=== PATIENT | female | born 1990 | race Two or more races ===

== ENCOUNTER 2017-01-21 13:14 | Inpatient (IN) | payer OTHER ==
[2017-01-21 13:40] VITALS: BMI 25.0
--- NOTE | 2017-01-21 15:48 | HP ---
CIWA Score - CIWA Score Nausea/Vomitin-Mild Nausea/No Vomiting Muscle Tremors: 4-Moderate,w/Arms Extend Anxiety: 4-Mod. Anxious/Guarded Agitation: 4-Moderately Restless Paroxysmal Sweats: 3 Orientation: 0-Oriented Tacttile Disturbances: 0-None Auditory Disturbances: 0-None Visual Disturbances: 0-None Headache: 1-Very Mild CIWA-Ar Total Score: 17 Admission ROS BHS - HPI Chief Complaint: I need help and need detox. Allergies/Adverse Reactions: Allergies Allergy/AdvReac Type Severity Reaction Status Date / Time penicillin G Allergy Severe Difficulty Verified 01/21/17 15:12 Breathing apple Allergy Unknown Verified 01/21/17 15:12 lemon Allergy Unknown Verified 01/21/17 15:12 raspberry Allergy Unknown Verified 01/21/17 15:12 History of Present Illness: pt is a 26yr old male with a history of alcohol dependence seeking detox for treatment. Exam Limitations: Intoxication - Ebola screening Have you traveled outside of the country in the last 21 days: No Have you had contact with anyone from an Ebola affected area: No Have you been sick,other than usual withdrawal symptoms: No Do you have a fever: No - Review of Systems Constitutional: Chills, Diaphoresis, Night Sweats, Changes in sleep EENT: reports: Tearing Respiratory: reports: No Symptoms reported Cardiac: reports: Syncope GI: reports: Nausea, Poor Appetite, Poor Fluid Intake : reports: No Symptoms Reported Musculoskeletal: reports: Joint Pain, Muscle Pain Integumentary: reports: Bruising, Sweating, Other (left don-orbital cut to eyebrow 12stitches placed 2 days ago) Endocrine: reports: Excessive Sweating, Flushing, Intolerance to Cold, Intolerance to Heat Hematology: reports: No Symptoms Reported Psychiatric: reports: Judgement Intact, Mood/Affect Appropiate, Orientated x3, Agitated, Anxious Other Systems: Reviewed and Negative Patient History - Patient Medical History Hx Anemia: No Hx Asthma: No Hx Chronic Obstructive Pulmonary Disease (COPD): No Hx Cancer: No Hx Cardiac Disorders: No Hx Congestive Heart Failure: No Hx Hypertension: No Hx Hypercholesterolemia: No Hx Pacemaker: No HX Cerebrovascular Accident: No Hx Seizures: No Hx Dementia: No Hx Diabetes: No Hx Gastrointestinal Disorders: Yes (acid reflux) Hx Liver Disease: No Hx Genitourinary Disorders: No Hx Sexually Transmitted Disorders: No Hx Renal Disease (ESRD): No Hx Thyroid Disease: No Hx Human Immunodeficiency Virus (HIV): No (negative) Hx Hepatitis C: No (negative) Hx Depression: Yes Hx Suicide Attempt: Yes (november tried to cut; denies any S/H ideation) Hx Bipolar Disorder: Yes Hx Schizophrenia: Yes - Patient Surgical History Past Surgical History: No Hx Neurologic Surgery: No Hx Cataract Extraction: No Hx Cardiac Surgery: No Hx Lung Surgery: No Hx Breast Surgery: No Hx Breast Biopsy: No Hx Abdominal Surgery: No Hx Appendectomy: No Hx Cholecystectomy: No Hx Genitourinary Surgery: No Hx Section: No Hx Orthopedic Surgery: No Anesthesia Reaction: No - PPD History Previous Implant?: Yes Documented Results: Negative w/o proof Implanted On Prior [facility] Admission?: No PPD to be Administered?: Yes - Reproductive History Patient is a Female of Child Bearing Age (11 -55 yrs old): Yes Last Menstrual Period: 12/04/16 Patient : No - Smoking Cessation Smoking history: Current every day smoker Have you smoked in the past 12 months: Yes Aproximately how many cigarettes per day: 40 Hx Chewing Tobacco Use: No Initiated information on smoking cessation: Yes 'Breaking Loose' booklet given: 01/21/17 - Substance & Tx. History Hx Alcohol Use: Yes Substance Use Type: Alcohol Hx Substance Use Treatment: Yes (last detox a month ago at [facility]) - Substances Abused Alcohol-vodka Route: Oral Frequency: Daily Amount used: 1/2 gal. Age of first use: 10 Date of Last Use: 01/21/17 Family Disease History - Family Disease History Family Disease History: Diabetes: Father, Mother (etoh) Admission Physical Exam S - Vital Signs Vital Signs: Vital Signs - 24 hr 01/21/17 13:37 Temperature 97.9 F Pulse Rate 120 H Respiratory 18 Rate Blood Pressure 130/96 - Physical General Appearance: Yes: Appropriately Dressed, Moderate Distress, Tremorous, Irritable, Sweating, Anxious HEENTM: Yes: Hearing grossly Normal, Normal Voice, Hearing Decreased, Other (pt has an left eyebrow cut with 12 stitches placed 2 days ago. bruising noted around the don-orbital area) Respiratory: Yes: Lungs Clear, Normal Breath Sounds, No Respiratory Distress Neck: Yes: No masses,lesions,Nodules Breast: Yes: Within Normal Limits Cardiology: Yes: Regular Rhythm, Regular Rate, S1, S2 Abdominal: Yes: Normal Bowel Sounds, Non Tender, Soft Genitourinary: Yes: Within Normal Limits Back: Yes: Normal Inspection Musculoskeletal: Yes: full range of Motion, Back pain Extremities: Yes: Normal Capillary Refill, Normal Inspection, Tremors 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: Yes: Fully Oriented, Alert, Normal Response Integumentary: Yes: Normal Color, Diaphoresis Lymphatic: Yes: Within Normal Limits - Diagnostic (1) Alcohol dependence with uncomplicated withdrawal Current Visit: Yes Status: Chronic (2) Crack cocaine use Current Visit: Yes Status: Chronic (3) Nicotine dependence Current Visit: Yes Status: Chronic Qualifiers: Nicotine product type: cigarettes Substance use status: in withdrawal Qualified Code(s): F17.213 - Nicotine dependence, cigarettes, with withdrawal (4) Orbital laceration Current Visit: Yes Status: Acute Qualifiers: Encounter type: initial encounter Laterality: left Qualified Code(s): S05.42XA - Penetrating wound of orbit with or without foreign body, left eye, initial encounter Comment: 12 intact stitches to left eyebrow Cleared for Admission [facility] - Detox or Rehab [facility] Level of Care: Medically Managed Detox Regimen/Protocol: Librium [facility] Breath Alcohol Content Breath Alcohol Content: 0.380 Urine Pregancy Test - Result Urine Test Results: Negative- NO Line Present Urine Drug Screen - Results Drug Screen Negative: No Urine Drug Screen Results: BZO-Benzodiazepines
[2017-01-21] MEDS ORDERED: guaiFENesin/D-METHORPHAN HB 10 ML UNIT-DOSE CUPS PO PRN (15:56)
[2017-01-21] MEDS ORDERED: MAGNESIUM HYDROX 2400MG/30ML ORAL SUSPENSION 30 ML CUP PO PRN (15:56)
[2017-01-21] MEDS ORDERED: P-EPHED 60MG/TRIPROLIDI 2.5MG TABLET PO PRN (15:56)
[2017-01-21] MEDS ORDERED: MENTHOL/PHENOL 1 EACH UD MM PRN (15:56)
[2017-01-21] MEDS ORDERED: MAGNESIUM CITRATE 300 ML BOTTLE PO PRN (15:56)
[2017-01-21] MEDS ORDERED: chlordiazePOXIDE HCL 25 MG CAPSULE PO ONE (15:56)
[2017-01-21] MEDS ORDERED: MAG HYDROX/AL HYDROX/SIMETH 30 ML UNIT-DOSE CUP PO PRN (15:56)
[2017-01-21] MEDS: chlordiazePOXIDE HCL 25 MG CAPSULE PO SCH ×2 (18:12→22:14)
[2017-01-21] MEDS: chlordiazePOXIDE HCL 25 MG CAPSULE PO PRN (20:12)
[2017-01-21] MEDS ORDERED: cloNIDine HCL 0.1 MG TABLET PO ONE (21:30)
[2017-01-21] MEDS: THIAMINE HCL 100 MG TABLET (FP) PO SCH (22:14)
[2017-01-21 22:46] LABS: URINE APPEARANCE SLCLOUDY; URINE BILIRUBIN NEGATIVE (NEGATIVE); URINE BLOOD 1+ (NEGATIVE); URINE COLOR YELLOW; URINE GLUCOSE (UA) NEGATIVE (NEGATIVE); URINE KETONE 1+ (NEGATIVE); URINE NITRITE NEGATIVE (NEGATIVE); URINE PROTEIN 3+ (NEGATIVE); URINE UROBILINOGEN NEGATIVE mg/dL (0.2-1.0)
[2017-01-21 22:57] LABS: GRANULAR CASTS 30 /lpf; URINE BACTERIA RARE /hpf (NONE SEEN); URINE HYALINE CAST 1 /lpf; URINE MUCUS FEW; URINE RBC <1 /hpf (0-3); URINE WBC 2 /hpf (3-5)
[2017-01-22] MEDS: chlordiazePOXIDE HCL 25 MG CAPSULE PO PRN ×3 (01:24→15:05)
[2017-01-22] MEDS: chlordiazePOXIDE HCL 25 MG CAPSULE PO SCH ×4 (05:20→22:23)
--- NOTE | 2017-01-22 07:28 | CONSULT ---
[facility] Psychiatric Consult - Data Date of interview: 01/22/17 Admission source: [facility] Identifying data: This is 26 years old female withy history of psychiatric hospitalization , intoxicated with Alcohol, Crack and Nicotine Substance Abuse History: - Smoking Cessation. Smoking history: Current every day smoker. Have you smoked in the past 12 months: Yes. Aproximately how many cigarettes per day: 40. Hx Chewing Tobacco Use: No. Initiated information on smoking cessation: Yes. 'Breaking Loose' booklet given: 01/21/17. - Substance & Tx. History. Hx Alcohol Use: Yes. Substance Use Type: Alcohol. Hx Substance Use Treatment: Yes (last detox [facility] - Substances Abused. Alcohol-vodka. Route: Oral. Frequency: Daily. Amount used: 1/2 gal. Age of first use: 10. Date of Last Use: 01/21/17 Medical History: Denies significant medical issues Psychiatric History: Patient reprots history of anxiety and depression, reports recent- 2 months ago psychiatric admission at [facility] with suicidal ideation, reports no suicidal attempts history, reports taking prior to admission: Vistaril m550mg po q6. Seroquel 150mg po qhs. Lexapro 20mg poqd Physical/Sexual Abuse/Trauma History: Denies Additional Comment: Vistaril m550mg po q6. Seroquel 150mg po qhs. Lexapro 20mg poqd Mental Status Exam - Mental Status Exam Alert and Oriented to: Person Cognitive Function: Fair Patient Appearance: Unkempt Mood: Sad Affect: Flat Patient Behavior: Sedated Speech Pattern: Delayed Voice Loudness: Mildly Soft/Quiet Thought Process: Circumstantial Thought Disorder: Being Controlled Hallucinations: Denies Suicidal Ideation: Denies Homicidal Ideation: Denies Insight/Judgement: Fair Sleep: Difficulty falling asleep Appetite: Fair Muscle strength/Tone: Mild Hypotonicity Gait/Station: Shuffling Additional Comments: Vistaril m550mg po q6. Seroquel 150mg po qhs. Lexapro 20mg poqd Psychiatric Findings - Problem List ([place] 1, 2,3) (1) Drug-induced mood disorder Current Visit: Yes Status: Acute (2) Alcohol dependence with uncomplicated withdrawal Current Visit: Yes Status: Chronic (3) Crack cocaine use Current Visit: Yes Status: Chronic (4) Nicotine dependence Current Visit: Yes Status: Chronic Qualifiers: Nicotine product type: cigarettes Substance use status: in withdrawal Qualified Code(s): F17.213 - Nicotine dependence, cigarettes, with withdrawal - Initial Treatment Plan Initial Treatment Plan: Vistaril m550mg po q6. Seroquel 150mg po qhs. Lexapro 20mg poqd
[2017-01-22] MEDS: hydrOXYzine PAMOATE 50 MG CAPSULE (FP) PO PRN (08:33)
[2017-01-22] MEDS: ACETAMINOPHEN 325 MG TABLET (FP) PO PRN (08:34)
[2017-01-22] MEDS ORDERED: hydrOXYzine HCL 25 MG TABLET (FP) PO PRN (08:41)
--- NOTE | 2017-01-22 09:59 | PN ---
S CIWA - CIWA Score Nausea/Vomitin Muscle Tremors: 3 Anxiety: 3 Agitation: 3 Paroxysmal Sweats: 1-Minimal Palms Moist Orientation: 0-Oriented Tacttile Disturbances: 1-Very Mild Itch/Numbness Auditory Disturbances: 1-Very Mild Visual Disturbances: 0-None Headache: 2-Mild CIWA-Ar Total Score: 17 BHS Progress Note (SOAP) Subjective: alert,irritable,anxious,interrupted sleep,tremor, Objective: 01/22/17 09:57 Vital Signs Temperature 97.7 F 01/22/17 06:19 Pulse Rate 91 H 01/22/17 06:19 Respiratory Rate 20 01/22/17 06:19 Blood Pressure 141/90 01/22/17 06:19 O2 Sat by Pulse Oximetry (%) ekg sinus tachycardia 115/min no chest pain,no sob,no dizziness Laboratory Last Values Urine Color Yellow 01/21/17 22:00 Urine Appearance Slcloudy 01/21/17 22:00 Urine pH 5.0 (5.0-8.0) 01/21/17 22:00 Ur Specific [place] 1.022 (1.001-1.035) 01/21/17 22:00 Urine Protein 3+ (NEGATIVE) H 01/21/17 22:00 Urine Glucose (UA) Negative (NEGATIVE) 01/21/17 22:00 Urine Ketones 1+ (NEGATIVE) H 01/21/17 22:00 Urine Blood 1+ (NEGATIVE) H 01/21/17 22:00 Urine Nitrite Negative (NEGATIVE) 01/21/17 22:00 Urine Bilirubin Negative (NEGATIVE) 01/21/17 22:00 Urine Urobilinogen Negative mg/dL (0.2-1.0) 01/21/17 22:00 Ur Epithelial Cells Rare /HPF (FEW) 01/21/17 22:00 Urine Bacteria Rare /hpf (NONE SEEN) 01/21/17 22:00 Hyaline Casts 1 /lpf 01/21/17 22:00 Granular Casts 30 /lpf 01/21/17 22:00 Urine Mucus Few 01/21/17 22:00 labs pending Assessment: 01/22/17 09:58 withdrawal symptom Plan: continue detox
[2017-01-22 10:05] LABS: MCH 29.3 pg (25.7-33.7); MCHC 32.5 g/dl (32.0-36.0); MEAN CELL VOLUME 90.1 fl (80-96); MEAN PLT VOLUME 9.2 fl (7.5-11.1); PLATELET COUNT 343 K/MM3 (134-434); RDW 18.2 % (11.6-15.6); WHITE BLOOD COUNT 10.5 K/mm3 (4.0-10.0)
--- NOTE | 2017-01-22 10:16 | EKG ---
Test Reason : Blood Pressure : / mmHG Vent. Rate : 115 BPM Atrial Rate : 115 BPM P-R Int : 164 ms QRS Dur : 064 ms QT Int : 328 ms P-R-T Axes : 063 044 065 degrees QTc Int : 453 ms SINUS TACHYCARDIA NONSPECIFIC ST ABNORMALITY ABNORMAL ECG NO PREVIOUS ECGS AVAILABLE Confirmed by ADALBERTO GUILLEN, LITTLE ([id number]) on 01/22/2017 10:16:33 AM Referred By: Confirmed By:LITTLE GLOVER MD
[2017-01-22] MEDS: NICOTINE 21 MG/24 HOURS TOPICAL PATCH TD SCH (10:24)
[2017-01-22] MEDS: ESCITALOPRAM OXALATE 20 MG TABLET (FP) PO SCH (10:24)
[2017-01-22] MEDS: PRENATAL VITAMINS W/ FOLIC ACID TABLET (FP) PO SCH (10:24)
[2017-01-22 10:38] LABS: ALBUMIN 4.4 g/dl (3.4-5.0); ALK PHOS 234 U/L (45-117); ANION GAP 20 (8-16); BILIRUBIN,TOTAL 0.5 mg/dL (0.2-1.0); CALCIUM 8.6 mg/dL (8.5-10.1); CO2 19 mmol/L (21-32); CREATININE 0.7 mg/dL (0.55-1.02); GLUCOSE,RANDOM 104 mg/dL (74-106); SGOT/AST 108 U/L (15-37); SGPT/ALT 58 U/L (12-78); TOT PROT 9.7 g/dl (6.4-8.2)
[2017-01-22] MEDS: ONDANSETRON *ODT* 4 MG TABLET SL PRN ×2 (11:15→22:26)
[2017-01-22 11:19] LABS: URINE LEUK ESTERASE Negative (NEGATIVE)
[2017-01-22] MEDS: BACITRACIN 0.9 GM PACKET TP SCH ×2 (16:10→21:42)
[2017-01-22] MEDS: IBUPROFEN 400 MG TABLET (FP) PO PRN (19:40)
[2017-01-22] MEDS: LOPERAMIDE HCL 2 MG CAPSULE PO PRN (21:42)
[2017-01-22] MEDS: QUEtiapine FUMARATE 50 MG TABLET PO SCH (22:23)
[2017-01-22] MEDS: THIAMINE HCL 100 MG TABLET (FP) PO SCH (22:24)
[2017-01-23] MEDS: chlordiazePOXIDE HCL 25 MG CAPSULE PO SCH ×2 (05:21→10:25)
[2017-01-23] MEDS: LOPERAMIDE HCL 2 MG CAPSULE PO PRN (08:33)
[2017-01-23] MEDS: ONDANSETRON *ODT* 4 MG TABLET SL PRN ×2 (08:33→14:49)
[2017-01-23] MEDS: NICOTINE 21 MG/24 HOURS TOPICAL PATCH TD SCH (10:25)
[2017-01-23] MEDS: BACITRACIN 0.9 GM PACKET TP SCH ×2 (10:25→22:12)
[2017-01-23] MEDS: PRENATAL VITAMINS W/ FOLIC ACID TABLET (FP) PO SCH (10:25)
[2017-01-23] MEDS: ESCITALOPRAM OXALATE 20 MG TABLET (FP) PO SCH (10:25)
[2017-01-23] MEDS: IBUPROFEN 400 MG TABLET (FP) PO PRN ×2 (10:27→22:14)
[2017-01-23] MEDS: hydrOXYzine PAMOATE 50 MG CAPSULE (FP) PO PRN ×2 (10:29→14:01)
--- NOTE | 2017-01-23 10:53 | PN ---
[facility] CIWA - CIWA Score Nausea/Vomitin-No Nausea/No Vomiting Muscle Tremors: 4-Moderate,w/Arms Extend Anxiety: 3 Agitation: 2 Paroxysmal Sweats: 3 Orientation: 0-Oriented Tacttile Disturbances: 0-None Auditory Disturbances: 0-None Visual Disturbances: 0-None Headache: 0-None Present CIWA-Ar Total Score: 12 S Progress Note (SOAP) Subjective: irritable agitation anxiety sweats Objective: 01/23/17 11:00 Vital Signs Temperature 97.2 F L 01/23/17 09:44 Pulse Rate 106 H 01/23/17 09:44 Respiratory Rate 18 01/23/17 09:44 Blood Pressure 133/94 01/23/17 09:44 O2 Sat by Pulse Oximetry (%) Laboratory Tests 01/21/17 01/22/17 01/22/17 22:00 05:30 05:30 WBC 10.5 H RBC 4.21 Hgb 12.3 Hct 38.0 MCV 90.1 MCH 29.3 MCHC 32.5 RDW 18.2 H Plt Count 343 MPV 9.2 Sodium 135 L Potassium 4.0 Chloride 96 L Carbon Dioxide 19 L Anion Gap 20 H BUN 8 Creatinine 0.7 Creat Clearance w eGFR > 60 Random Glucose 104 Calcium 8.6 Total Bilirubin 0.5 AST 108 H ALT 58 Alkaline Phosphatase 234 H Total Protein 9.7 H Albumin 4.4 Urine Color Yellow Urine Appearance Slcloudy Urine pH 5.0 Ur Specific [place] 1.022 Urine Protein 3+ H Urine Glucose (UA) Negative Urine Ketones 1+ H Urine Blood 1+ H Urine Nitrite Negative Urine Bilirubin Negative Urine Urobilinogen Negative Ur Leukocyte Esterase Negative Ur Epithelial Cells Rare Urine Bacteria Rare Hyaline Casts 1 Granular Casts 30 Urine Mucus Few RPR Titer 01/22/17 05:30 WBC RBC Hgb Hct MCV MCH MCHC RDW Plt Count MPV Sodium Potassium Chloride Carbon Dioxide Anion Gap BUN Creatinine Creat Clearance w eGFR Random Glucose Calcium Total Bilirubin AST ALT Alkaline Phosphatase Total Protein Albumin Urine Color Urine Appearance Urine pH Ur Specific [place] Urine Protein Urine Glucose (UA) Urine Ketones Urine Blood Urine Nitrite Urine Bilirubin Urine Urobilinogen Ur Leukocyte Esterase Ur Epithelial Cells Urine Bacteria Hyaline Casts Granular Casts Urine Mucus RPR Titer Nonreactive aaox3 ambulating no acute distress eyebrow cut is healing properly stitches intact Assessment: 01/23/17 11:00 withdrawal sx Plan: continue detox increase fluids
[2017-01-23] MEDS: chlordiazePOXIDE HCL 25 MG CAPSULE PO PRN (14:01)
[2017-01-23] MEDS: NICOTINE POLACRILEX 4 MG GUM BC PRN (14:01)
[2017-01-23] MEDS: ACETAMINOPHEN 325 MG TABLET (FP) PO PRN (16:56)
[2017-01-23] MEDS: chlordiazePOXIDE 5 MG CAPSULE PO SCH ×2 (16:57→22:12)
[2017-01-23] MEDS: THIAMINE HCL 100 MG TABLET (FP) PO SCH (22:12)
[2017-01-23] MEDS: QUEtiapine FUMARATE 50 MG TABLET PO SCH (22:13)
[2017-01-24] MEDS: chlordiazePOXIDE 5 MG CAPSULE PO SCH ×2 (05:52→10:19)
[2017-01-24] MEDS: chlordiazePOXIDE HCL 25 MG CAPSULE PO PRN (08:51)
--- NOTE | 2017-01-24 09:37 | PN ---
S Progress Note (SOAP) Subjective: alert,irritable,anxious,interrupted sleep Objective: 01/24/17 09:36 Vital Signs Temperature 97.2 F L 01/24/17 06:09 Pulse Rate 73 01/24/17 06:09 Respiratory Rate 18 01/24/17 06:09 Blood Pressure 110/69 01/24/17 06:09 O2 Sat by Pulse Oximetry (%) Assessment: 01/24/17 09:36 withdrawal symptom Plan: continue detox,discharge in am
[2017-01-24] MEDS: NICOTINE 21 MG/24 HOURS TOPICAL PATCH TD SCH (10:19)
[2017-01-24] MEDS: PRENATAL VITAMINS W/ FOLIC ACID TABLET (FP) PO SCH (10:19)
[2017-01-24] MEDS: ESCITALOPRAM OXALATE 20 MG TABLET (FP) PO SCH (10:19)
[2017-01-24] MEDS: BACITRACIN 0.9 GM PACKET TP SCH ×4 (10:19→21:59)
[2017-01-24] MEDS: IBUPROFEN 400 MG TABLET (FP) PO PRN (10:22)
[2017-01-24] MEDS: NICOTINE POLACRILEX 4 MG GUM BC PRN ×3 (10:23→17:16)
--- NOTE | 2017-01-24 10:51 | PN ---
BHS Progress Note Note: 6 stitches removed from left eyebrow,wound healed well
[2017-01-24] MEDS: chlordiazePOXIDE HCL 10 MG CAPSULE PO SCH ×2 (17:14→21:59)
[2017-01-24] MEDS: hydrOXYzine PAMOATE 50 MG CAPSULE (FP) PO PRN (18:32)
[2017-01-24] MEDS: THIAMINE HCL 100 MG TABLET (FP) PO SCH (21:58)
[2017-01-24] MEDS: QUEtiapine FUMARATE 50 MG TABLET PO SCH (21:59)
[2017-01-25] MEDS: chlordiazePOXIDE HCL 10 MG CAPSULE PO SCH ×2 (05:40→10:25)
[2017-01-25] MEDS: IBUPROFEN 400 MG TABLET (FP) PO PRN (05:41)
[2017-01-25] MEDS: hydrOXYzine PAMOATE 50 MG CAPSULE (FP) PO PRN (08:40)
--- NOTE | 2017-01-25 09:21 | DS ---
[facility] Detox Discharge Summary Admission Date: 01/21/17 Discharge Date: 01/25/17 - History Present History: Alcohol Dependence, Cocaine Dependence Additional Comments: follow up with after care program as arrangement [facility] Pertinent Past History: nicotine dependence laceration of left orbitla area with stitches - Physical Exam Results Vital Signs: Vital Signs Temperature 97.9 F 01/25/17 06:03 Pulse Rate 79 01/25/17 06:03 Respiratory Rate 18 01/25/17 06:03 Blood Pressure 119/67 01/25/17 06:03 O2 Sat by Pulse Oximetry (%) Pertinent Admission Physical Exam Findings: withdrawal symptom - Treatment Hospital Course: Detox Protocol Followed, Detoxed Safely, Responded well, Discharged Condition Good, Rehab Referral Accepted Patient has Accepted a Rehab Referral to: [facility] - Medication Discharge Medications: Ambulatory Orders Gabapentin [Neurontin -] 300 mg PO Q8H 01/21/17 Escitalopram Oxalate [Lexapro -] 20 mg PO DAILY #30 tablet 01/22/17 Hydroxyzine HCl [Atarax -] 50 mg PO Q6H PRN #90 tablet 01/22/17 Quetiapine Fumarate [Seroquel -] 150 mg PO HS #30 tablet 01/22/17 - Diagnosis (1) Alcohol dependence with uncomplicated withdrawal Current Visit: Yes Status: Chronic (2) Drug-induced mood disorder Current Visit: Yes Status: Acute (3) Orbital laceration Current Visit: Yes Status: Acute Qualifiers: Encounter type: initial encounter Laterality: left Qualified Code(s): S05.42XA - Penetrating wound of orbit with or without foreign body, left eye, initial encounter (4) Crack cocaine use Current Visit: Yes Status: Chronic (5) Nicotine dependence Current Visit: Yes Status: Chronic Qualifiers: Nicotine product type: cigarettes Substance use status: in withdrawal Qualified Code(s): F17.213 - Nicotine dependence, cigarettes, with withdrawal (6) Laceration of left orbit Current Visit: Yes Status: Acute - AMA Did Patient Leave Against Medical Advice: No
[2017-01-25] MEDS: BACITRACIN 0.9 GM PACKET TP SCH ×2 (10:00→10:25)
[2017-01-25] MEDS: ESCITALOPRAM OXALATE 20 MG TABLET (FP) PO SCH (10:25)
[2017-01-25] MEDS: PRENATAL VITAMINS W/ FOLIC ACID TABLET (FP) PO SCH (10:25)
[2017-01-25] MEDS: NICOTINE 21 MG/24 HOURS TOPICAL PATCH TD SCH (10:25)
[2017-01-25 11:18] VITALS: BP 132/92; PULSE 77; TEMP 98.1
== END 2017-01-25 11:08 | disposition other institution (70) | DRG 774 ==
LOC: YASAS 13:14 → Y6N 16:08
PROVIDERS: ADMIT Internal Medicine; ATTEND Internal Medicine
PROC: HZ2ZZZZ Detoxification Services for Substance Abuse Treatment (ICD-10-PCS; principal; 2017-01-21)
DX: F10.230 Alcohol dependence with withdrawal, uncomplicated (principal); F14.10 Cocaine abuse, uncomplicated; F17.210 Nicotine dependence, cigarettes, uncomplicated; F25.9 Schizoaffective disorder, unspecified; F19.24 Other psychoactive substance dependence with psychoactive substance-induced mood disorder; S05.42XA Penetrating wound of orbit with or without foreign body, left eye, initial encounter
CPT/HCPCS: 36415; 80053; 81003; 81015; 85027; 86593; 93005; 93010

== ENCOUNTER 2017-01-25 11:51 | Inpatient (IN) | payer OTHER ==
--- NOTE | 2017-01-25 13:11 | HP ---
[facility] Rehab Assess/Revision - Admission History Admitted to Rehab from: [facility] Date of Admission to Rehab: 01/25/17 - Vital signs Vital Signs: Vital Signs Period Temp Pulse Resp BP Sys/Bianchi Pulse Ox Last 24 Hr 97.7 F 87 18 128/82 - Findings Detox History & Physical reviewed: Yes Concur with findings: Yes Comments/Additional Findings: for rehab as protocol Inpatient Rehab Admission - Initial Determination Are CD services needed?: Yes Free of communicable disease: Yes Not in need of hospitalization: Yes - Rehab Admission Criteria Previous failed treatment: Yes Poor recovery environment: Yes Patient is meeting Inpatient Rehab admission criteria:: Yes
[2017-01-25] MEDS ORDERED: P-EPHED 60MG/TRIPROLIDI 2.5MG TABLET PO PRN (13:12)
[2017-01-25] MEDS ORDERED: MAGNESIUM CITRATE 300 ML BOTTLE PO PRN (13:12)
[2017-01-25] MEDS ORDERED: ACETAMINOPHEN 325 MG TABLET (FP) PO PRN (13:12)
[2017-01-25] MEDS ORDERED: guaiFENesin/D-METHORPHAN HB 10 ML UNIT-DOSE CUPS PO PRN (13:12)
[2017-01-25] MEDS ORDERED: MAG HYDROX/AL HYDROX/SIMETH 30 ML UNIT-DOSE CUP PO PRN (13:12)
[2017-01-25] MEDS ORDERED: LOPERAMIDE HCL 2 MG CAPSULE PO PRN (13:12)
[2017-01-25] MEDS ORDERED: MAGNESIUM HYDROX 2400MG/30ML ORAL SUSPENSION 30 ML CUP PO PRN (13:12)
[2017-01-25] MEDS ORDERED: MENTHOL/PHENOL 1 EACH UD MM PRN (13:12)
[2017-01-25] MEDS: GABAPENTIN 300 MG CAPSULE (FP) PO SCH ×2 (13:23→21:35)
[2017-01-25] MEDS: hydrOXYzine HCL 25 MG TABLET (FP) PO PRN ×2 (13:23→21:37)
[2017-01-25] MEDS: THIAMINE HCL 100 MG TABLET (FP) PO SCH (21:35)
[2017-01-25] MEDS: QUEtiapine FUMARATE 25 MG TABLET (FP) PO SCH (21:37)
[2017-01-25] MEDS: NICOTINE POLACRILEX 4 MG GUM BUC PRN (21:38)
[2017-01-26] MEDS: GABAPENTIN 300 MG CAPSULE (FP) PO SCH ×4 (05:25→21:41)
[2017-01-26] MEDS: IBUPROFEN 400 MG TABLET (FP) PO PRN ×2 (06:23→21:41)
[2017-01-26] MEDS: NICOTINE POLACRILEX 4 MG GUM BUC PRN ×4 (08:39→21:47)
[2017-01-26] MEDS: PRENATAL VITAMINS W/ FOLIC ACID TABLET (FP) PO SCH (09:42)
[2017-01-26] MEDS: ESCITALOPRAM OXALATE 20 MG TABLET (FP) PO SCH (09:42)
[2017-01-26] MEDS: NICOTINE 21 MG/24 HOURS TOPICAL PATCH TD SCH (09:42)
[2017-01-26] MEDS: hydrOXYzine HCL 25 MG TABLET (FP) PO PRN ×3 (09:43→21:41)
[2017-01-26] MEDS: THIAMINE HCL 100 MG TABLET (FP) PO SCH (21:42)
[2017-01-26] MEDS: QUEtiapine FUMARATE 25 MG TABLET (FP) PO SCH (22:55)
[2017-01-27] MEDS ORDERED: PT OWN MED DRAWER 7, Y5N ONE (06:35)
[2017-01-27] MEDS: IBUPROFEN 400 MG TABLET (FP) PO PRN ×3 (06:37→21:12)
[2017-01-27] MEDS: GABAPENTIN 300 MG CAPSULE (FP) PO SCH ×3 (06:37→21:13)
[2017-01-27] MEDS: hydrOXYzine HCL 25 MG TABLET (FP) PO PRN (08:43)
[2017-01-27] MEDS: PRENATAL VITAMINS W/ FOLIC ACID TABLET (FP) PO SCH (09:49)
[2017-01-27] MEDS: ESCITALOPRAM OXALATE 20 MG TABLET (FP) PO SCH (09:49)
[2017-01-27] MEDS: NICOTINE 21 MG/24 HOURS TOPICAL PATCH TD SCH (09:50)
[2017-01-27] MEDS: NICOTINE POLACRILEX 4 MG GUM BUC PRN ×4 (09:50→21:14)
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
[2017-01-27] MEDS: hydrOXYzine PAMOATE 50 MG CAPSULE (FP) PO PRN ×2 (15:50→21:12)
[2017-01-27] MEDS: QUEtiapine FUMARATE 25 MG TABLET (FP) PO SCH ×2 (17:03→22:03)
[2017-01-27] MEDS: diphenhydrAMINE HCL 25 MG CAPSULE (FP) PO PRN (17:32)
[2017-01-27] MEDS: HALOPERIDOL 5 MG TABLET (FP) PO PRN (17:32)
[2017-01-27] MEDS: THIAMINE HCL 100 MG TABLET (FP) PO SCH (21:13)
[2017-01-28] MEDS: IBUPROFEN 400 MG TABLET (FP) PO PRN ×2 (06:56→21:09)
[2017-01-28] MEDS: GABAPENTIN 300 MG CAPSULE (FP) PO SCH ×3 (06:56→21:06)
[2017-01-28] MEDS: hydrOXYzine PAMOATE 50 MG CAPSULE (FP) PO PRN ×3 (06:56→17:22)
[2017-01-28] MEDS: QUEtiapine FUMARATE 25 MG TABLET (FP) PO SCH ×4 (09:55→21:05)
[2017-01-28] MEDS: ESCITALOPRAM OXALATE 20 MG TABLET (FP) PO SCH (09:55)
[2017-01-28] MEDS: NICOTINE 21 MG/24 HOURS TOPICAL PATCH TD SCH (09:55)
[2017-01-28] MEDS: PRENATAL VITAMINS W/ FOLIC ACID TABLET (FP) PO SCH (09:55)
[2017-01-28] MEDS: NICOTINE POLACRILEX 4 MG GUM BUC PRN ×3 (09:56→21:10)
[2017-01-28] MEDS: THIAMINE HCL 100 MG TABLET (FP) PO SCH (21:09)
[2017-01-29] MEDS: GABAPENTIN 300 MG CAPSULE (FP) PO SCH ×3 (06:39→21:10)
[2017-01-29] MEDS: IBUPROFEN 400 MG TABLET (FP) PO PRN ×3 (06:39→21:11)
[2017-01-29] MEDS: hydrOXYzine PAMOATE 50 MG CAPSULE (FP) PO PRN ×3 (06:39→17:31)
[2017-01-29] MEDS: ESCITALOPRAM OXALATE 20 MG TABLET (FP) PO SCH (09:34)
[2017-01-29] MEDS: PRENATAL VITAMINS W/ FOLIC ACID TABLET (FP) PO SCH (09:35)
[2017-01-29] MEDS: QUEtiapine FUMARATE 25 MG TABLET (FP) PO SCH ×3 (09:35→21:09)
[2017-01-29] MEDS: NICOTINE 21 MG/24 HOURS TOPICAL PATCH TD SCH (09:35)
[2017-01-29] MEDS: NICOTINE POLACRILEX 4 MG GUM BUC PRN ×4 (09:36→21:12)
[2017-01-29] MEDS: HALOPERIDOL 5 MG TABLET (FP) PO PRN (18:46)
[2017-01-29] MEDS: THIAMINE HCL 100 MG TABLET (FP) PO SCH (21:10)
[2017-01-29] MEDS: diphenhydrAMINE HCL 25 MG CAPSULE (FP) PO PRN (23:30)
[2017-01-30] MEDS: IBUPROFEN 400 MG TABLET (FP) PO PRN ×2 (06:56→14:25)
[2017-01-30] MEDS: GABAPENTIN 300 MG CAPSULE (FP) PO SCH ×3 (06:56→21:02)
[2017-01-30] MEDS: hydrOXYzine PAMOATE 50 MG CAPSULE (FP) PO PRN ×2 (06:56→11:49)
[2017-01-30] MEDS: ESCITALOPRAM OXALATE 20 MG TABLET (FP) PO SCH (09:42)
[2017-01-30] MEDS: PRENATAL VITAMINS W/ FOLIC ACID TABLET (FP) PO SCH (09:43)
[2017-01-30] MEDS: NICOTINE 21 MG/24 HOURS TOPICAL PATCH TD SCH (09:43)
[2017-01-30] MEDS ORDERED: QUEtiapine FUMARATE 50 MG TABLET PO SCH (10:00)
[2017-01-30] MEDS: NICOTINE POLACRILEX 4 MG GUM BUC PRN ×2 (10:39→13:52)
[2017-01-30] MEDS: HALOPERIDOL 5 MG TABLET (FP) PO PRN (11:56)
--- NOTE | 2017-01-30 12:56 | PN ---
Psychiatric Progress Note Vital Signs: Vital Signs Period Temp Pulse Resp BP Sys/Bianchi Pulse Ox Last 24 Hr 97.8 F 90 18-18 110/70 Date of Session: 01/30/17 Chief Complaint:: Audotory hallucinations HPI: As per nursing report patient expressing auditory hallucinations, ''voices telling me to kill myself". Patient reports history of suicidal ideations, denies history of suicidal attempts, reports hearing voices of her Mother, reports she knows those voices are not a reality and asking MD for medication intervantion to stop auditory hallucinations, patient cooperative and redirectional Current Medications: Active Medications Generic Name Dose Route Start Last Admin Trade Name Freq PRN Reason Stop Dose Admin Acetaminophen 650 mg 01/25/17 13:12 Tylenol - PO Q4H PRN FEVER OR PAIN Al Hydroxide/Mg Hydroxide 30 ml 01/25/17 13:12 Mylanta Oral Suspension - PO Q6H PRN DYSPEPSIA Diphenhydramine HCl 25 mg 01/27/17 17:23 01/29/17 23:30 Benadryl - PO 25 mg BID PRN Administration AGITATION Escitalopram Oxalate 20 mg 01/26/17 10:00 01/30/17 09:42 Lexapro - PO 20 mg DAILY RANJITH Administration Eucalyptus/Menthol/Phenol/Sorbitol 1 each 01/25/17 13:12 Cepastat Lozenge - MM Q4H PRN SORE THROAT Gabapentin 300 mg 01/26/17 06:00 01/30/17 06:56 Neurontin - PO 300 mg TID RANJITH Administration Guaifenesin 10 ml 01/25/17 13:12 Robitussin Dm - PO Q6H PRN COUGH Haloperidol 5 mg 01/27/17 17:23 01/30/17 11:56 Haldol - PO 5 mg BID PRN Administration AGITATION Hydroxyzine Pamoate 50 mg 01/27/17 14:31 01/30/17 11:49 Vistaril - PO 50 mg Q4H PRN Administration ANXIETY Ibuprofen 400 mg 01/25/17 13:12 01/30/17 06:56 Motrin - PO 400 mg Q6H PRN Administration PAIN Loperamide HCl 4 mg 01/25/17 13:12 Imodium - PO Q6H PRN DIARRHEA Magnesium Citrate 300 ml 01/25/17 13:12 Citroma - PO Q48H PRN CONSTIPATION Magnesium Hydroxide 30 ml 01/25/17 13:12 Milk Of Magnesia - PO DAILY PRN CONSTIPATION Nicotine 21 mg 01/26/17 10:00 01/30/17 09:43 Nicoderm Patch - TD 21 mg DAILY RANJITH Administration Nicotine Polacrilex 4 mg 01/25/17 13:12 01/30/17 10:39 Nicorette Gum - BUC 4 mg Q2H PRN Administration NICOTINE REPLACEMENT RX Olanzapine 10 mg 01/30/17 13:00 Zyprexa - PO BID RANJITH Multivit/Folic Acid/Iron 1 tab 01/26/17 10:00 01/30/17 09:43 Vitamins (Sjr) - PO 1 tab DAILY RANJITH Administration Pseudoephedrine/Triprolidine 1 combo 01/25/17 13:12 Actifed - PO TID PRN NASAL CONGESTION Quetiapine Fumarate 150 mg 01/25/17 22:00 01/29/17 21:09 Seroquel - PO 150 mg HS RANJITH Administration Quetiapine Fumarate 50 mg 01/30/17 10:00 01/30/17 09:43 Seroquel - PO 50 mg BID@1000,1400 RANJITH Administration Thiamine HCl 100 mg 01/25/17 22:00 01/29/17 21:10 Vitamin B1 - PO 100 mg HS RANJITH Administration Medication(s) Change(s): Zyprexa 10mg po bid. Zuprexa 10mg po stat. Cogentin 1mg po bid. Seroquel 50mg po bid to D/C Mental Status Exam - Mental Status Exam Alert and Oriented to: Place, Person Cognitive Function: Fair Patient Appearance: Well Groomed Mood: Anxious Affect: Labile Patient Behavior: Cooperative Speech Pattern: Excessive Voice Loudness: Normal Thought Process: Goal Oriented Thought Disorder: Being Controlled Hallucinations: Auditory Suicidal Ideation: Denies Homicidal Ideation: Denies Insight/Judgement: Fair Sleep: Difficulty falling asleep Appetite: Fair Muscle strength/Tone: Normal Gait/Station: Normal Additional Comments: Zyprexa 10mg po bid. Zuprexa 10mg po stat. Cogentin 1mg po bid. Seroquel 50mg po bid to D/C Psychiatric Treatment Plan - Problem List (1) Alcohol dependence Current Visit: Yes (2) Nicotine dependence Current Visit: Yes Qualifiers: (3) Schizoaffective disorder Current Visit: Yes (4) Alcohol dependence with uncomplicated withdrawal Current Visit: No (5) Crack cocaine use Current Visit: No Initial treatment plan: Zyprexa 10mg po bid. Zuprexa 10mg po stat. Cogentin 1mg po bid. Seroquel 50mg po bid to D/C
[2017-01-30] MEDS: OLANZapine 10 MG TABLET PO SCH ×2 (13:26→21:02)
[2017-01-30] MEDS: BENZTROPINE MESYLATE 1 MG TABLET (FP) PO SCH ×2 (13:26→21:01)
[2017-01-30] MEDS: QUEtiapine FUMARATE 25 MG TABLET (FP) PO SCH (21:01)
[2017-01-30] MEDS: THIAMINE HCL 100 MG TABLET (FP) PO SCH (21:02)
[2017-01-31] MEDS: GABAPENTIN 300 MG CAPSULE (FP) PO SCH ×3 (06:42→21:10)
[2017-01-31] MEDS: hydrOXYzine PAMOATE 50 MG CAPSULE (FP) PO PRN ×3 (07:05→17:28)
[2017-01-31] MEDS: BENZTROPINE MESYLATE 1 MG TABLET (FP) PO SCH ×2 (09:44→21:10)
[2017-01-31] MEDS: PRENATAL VITAMINS W/ FOLIC ACID TABLET (FP) PO SCH (09:44)
[2017-01-31] MEDS: OLANZapine 10 MG TABLET PO SCH ×2 (09:44→21:10)
[2017-01-31] MEDS: ESCITALOPRAM OXALATE 20 MG TABLET (FP) PO SCH (09:44)
[2017-01-31] MEDS: NICOTINE 21 MG/24 HOURS TOPICAL PATCH TD SCH (09:45)
[2017-01-31] MEDS: IBUPROFEN 400 MG TABLET (FP) PO PRN (09:46)
[2017-01-31] MEDS: NICOTINE POLACRILEX 4 MG GUM BUC PRN ×4 (09:47→18:24)
[2017-01-31] MEDS: HALOPERIDOL 5 MG TABLET (FP) PO PRN (20:09)
[2017-01-31] MEDS: THIAMINE HCL 100 MG TABLET (FP) PO SCH (21:10)
[2017-01-31] MEDS: QUEtiapine FUMARATE 25 MG TABLET (FP) PO SCH (21:10)
[2017-02-01] MEDS: hydrOXYzine PAMOATE 50 MG CAPSULE (FP) PO PRN ×3 (06:45→22:32)
[2017-02-01] MEDS: GABAPENTIN 300 MG CAPSULE (FP) PO SCH ×3 (06:45→21:05)
[2017-02-01] MEDS: IBUPROFEN 400 MG TABLET (FP) PO PRN ×2 (06:45→15:32)
[2017-02-01] MEDS: NICOTINE POLACRILEX 4 MG GUM BUC PRN ×3 (08:53→18:32)
[2017-02-01] MEDS: BENZTROPINE MESYLATE 1 MG TABLET (FP) PO SCH ×2 (09:36→21:11)
[2017-02-01] MEDS: ESCITALOPRAM OXALATE 20 MG TABLET (FP) PO SCH (09:36)
[2017-02-01] MEDS: OLANZapine 10 MG TABLET PO SCH ×2 (09:37→21:06)
[2017-02-01] MEDS: NICOTINE 21 MG/24 HOURS TOPICAL PATCH TD SCH (09:37)
[2017-02-01] MEDS: PRENATAL VITAMINS W/ FOLIC ACID TABLET (FP) PO SCH (09:37)
[2017-02-01] MEDS: HALOPERIDOL 5 MG TABLET (FP) PO PRN ×2 (12:30→21:06)
[2017-02-01] MEDS: THIAMINE HCL 100 MG TABLET (FP) PO SCH (21:05)
[2017-02-01] MEDS: diphenhydrAMINE HCL 25 MG CAPSULE (FP) PO PRN (21:06)
[2017-02-01] MEDS: QUEtiapine FUMARATE 25 MG TABLET (FP) PO SCH (22:31)
[2017-02-02] MEDS: GABAPENTIN 300 MG CAPSULE (FP) PO SCH ×3 (06:34→21:02)
[2017-02-02] MEDS: hydrOXYzine PAMOATE 50 MG CAPSULE (FP) PO PRN ×4 (06:34→21:04)
[2017-02-02] MEDS: IBUPROFEN 400 MG TABLET (FP) PO PRN ×2 (06:35→14:45)
[2017-02-02] MEDS: BENZTROPINE MESYLATE 1 MG TABLET (FP) PO SCH ×2 (10:04→21:01)
[2017-02-02] MEDS: ESCITALOPRAM OXALATE 20 MG TABLET (FP) PO SCH (10:05)
[2017-02-02] MEDS: NICOTINE 21 MG/24 HOURS TOPICAL PATCH TD SCH (10:05)
[2017-02-02] MEDS: OLANZapine 10 MG TABLET PO SCH ×2 (10:05→21:02)
[2017-02-02] MEDS: PRENATAL VITAMINS W/ FOLIC ACID TABLET (FP) PO SCH (10:05)
[2017-02-02] MEDS: NICOTINE POLACRILEX 4 MG GUM BUC PRN (10:26)
[2017-02-02] MEDS: HALOPERIDOL 5 MG TABLET (FP) PO PRN (13:04)
[2017-02-02] MEDS: QUEtiapine FUMARATE 25 MG TABLET (FP) PO SCH (21:02)
[2017-02-02] MEDS: THIAMINE HCL 100 MG TABLET (FP) PO SCH (21:03)
[2017-02-03] MEDS: HALOPERIDOL 5 MG TABLET (FP) PO PRN ×2 (02:07→20:02)
[2017-02-03] MEDS: diphenhydrAMINE HCL 25 MG CAPSULE (FP) PO PRN (02:07)
[2017-02-03] MEDS: GABAPENTIN 300 MG CAPSULE (FP) PO SCH ×3 (06:18→21:02)
[2017-02-03] MEDS: hydrOXYzine PAMOATE 50 MG CAPSULE (FP) PO PRN ×4 (06:34→21:03)
[2017-02-03] MEDS: IBUPROFEN 400 MG TABLET (FP) PO PRN ×2 (06:35→21:03)
[2017-02-03] MEDS: NICOTINE 21 MG/24 HOURS TOPICAL PATCH TD SCH (09:46)
[2017-02-03] MEDS: BENZTROPINE MESYLATE 1 MG TABLET (FP) PO SCH ×2 (09:46→21:02)
[2017-02-03] MEDS: OLANZapine 10 MG TABLET PO SCH ×2 (09:46→21:02)
[2017-02-03] MEDS: ESCITALOPRAM OXALATE 20 MG TABLET (FP) PO SCH (09:46)
[2017-02-03] MEDS: PRENATAL VITAMINS W/ FOLIC ACID TABLET (FP) PO SCH (09:46)
[2017-02-03] MEDS: NICOTINE POLACRILEX 4 MG GUM BUC PRN ×3 (09:48→21:02)
--- NOTE | 2017-02-03 11:16 | PN ---
BHS Progress Note (SOAP) Subjective: c/o lesion under right ear and would like to take medication assisted treatment for alcoholism but concerned about lfts. Objective: 02/03/17 11:15 Vital Signs - 8 hr 02/03/17 02/03/17 03:30 06:30 Temperature 98 F Pulse Rate 101 H Respiratory 16 16 Rate Blood Pressure 118/79 labs from detox admission reviewed, elevated lfts, will repeat labs to see if she is able to take mat for alcohol, benign cyst under right ear, advised to f/ u PCP when discharged if she woud like it removed Assessment: 02/03/17 11:16 f/u psych when labs returned for MAT consider naltrexone.
--- NOTE | 2017-02-03 16:07 | PN ---
Psychiatric Progress Note Vital Signs: Vital Signs Period Temp Pulse Resp BP Sys/Bianchi Pulse Ox Last 24 Hr 98 F 101 16-16 118/79 Date of Session: 02/03/17 Chief Complaint:: I need medication for my alcohol craving. HPI: Patient addressed alcohol and cocaine dependence comorbid with schizophrenia. ROS: Unremarkable Current Medications: Active Medications Generic Name Dose Route Start Last Admin Trade Name Freq PRN Reason Stop Dose Admin Acamprosate 666 mg 02/03/17 16:00 Campral - PO TID RANJITH Acetaminophen 650 mg 01/25/17 13:12 Tylenol - PO Q4H PRN FEVER OR PAIN Al Hydroxide/Mg Hydroxide 30 ml 01/25/17 13:12 Mylanta Oral Suspension - PO Q6H PRN DYSPEPSIA Benztropine Mesylate 1 mg 01/30/17 13:00 02/03/17 09:46 Cogentin - PO 1 mg BID RANJITH Administration Diphenhydramine HCl 25 mg 01/27/17 17:23 02/03/17 02:07 Benadryl - PO 25 mg BID PRN Administration AGITATION Escitalopram Oxalate 20 mg 01/26/17 10:00 02/03/17 09:46 Lexapro - PO 20 mg DAILY RANJITH Administration Eucalyptus/Menthol/Phenol/Sorbitol 1 each 01/25/17 13:12 Cepastat Lozenge - MM Q4H PRN SORE THROAT Gabapentin 300 mg 01/26/17 06:00 02/03/17 13:34 Neurontin - PO 300 mg TID RANJITH Administration Guaifenesin 10 ml 01/25/17 13:12 Robitussin Dm - PO Q6H PRN COUGH Haloperidol 5 mg 01/27/17 17:23 02/03/17 02:07 Haldol - PO 5 mg BID PRN Administration AGITATION Hydroxyzine Pamoate 50 mg 01/27/17 14:31 02/03/17 12:34 Vistaril - PO 50 mg Q4H PRN Administration ANXIETY Ibuprofen 400 mg 01/25/17 13:12 02/03/17 06:35 Motrin - PO 400 mg Q6H PRN Administration PAIN Loperamide HCl 4 mg 01/25/17 13:12 Imodium - PO Q6H PRN DIARRHEA Magnesium Citrate 300 ml 01/25/17 13:12 Citroma - PO Q48H PRN CONSTIPATION Magnesium Hydroxide 30 ml 01/25/17 13:12 Milk Of Magnesia - PO DAILY PRN CONSTIPATION Nicotine 21 mg 01/26/17 10:00 02/03/17 09:46 Nicoderm Patch - TD 21 mg DAILY RANJITH Administration Nicotine Polacrilex 4 mg 01/25/17 13:12 02/03/17 15:44 Nicorette Gum - BUC 4 mg Q2H PRN Administration NICOTINE REPLACEMENT RX Olanzapine 10 mg 01/30/17 13:00 02/03/17 09:46 Zyprexa - PO 10 mg BID RANJITH Administration Multivit/Folic Acid/Iron 1 tab 01/26/17 10:00 02/03/17 09:46 Vitamins (Sjr) - PO 1 tab DAILY RANJITH Administration Pseudoephedrine/Triprolidine 1 combo 01/25/17 13:12 Actifed - PO TID PRN NASAL CONGESTION Quetiapine Fumarate 150 mg 01/25/17 22:00 02/02/17 21:02 Seroquel - PO 150 mg HS RANJITH Administration Thiamine HCl 100 mg 01/25/17 22:00 02/02/17 21:03 Vitamin B1 - PO 100 mg HS RANJITH Administration Current Side Effect: No Lab tests ordered: No Lab tests reviewed: Yes Provider note:: Chart was revuewed,patient was evaluated.She addressed craving for alcohol.Properties of Campral has been discussed with the patient including side effects and benefits.Patient will continue current medications,Campral 333 mg po 2 tab tid will be started today. Supportive therapy provided. Total face to face time:: 30 Mental Status Exam - Mental Status Exam Alert and Oriented to: Time, Place, Person Cognitive Function: Grossly Intact Patient Appearance: Well Groomed Mood: Sad Affect: Mood Congruent Patient Behavior: Cooperative Speech Pattern: Clear Voice Loudness: Normal Thought Process: Goal Oriented Thought Disorder: Being Controlled Hallucinations: Denies Suicidal Ideation: Denies Homicidal Ideation: Denies Insight/Judgement: Fair Sleep: Fair Appetite: Good Muscle strength/Tone: Normal Gait/Station: Normal Psychiatric Treatment Plan - Problem List (1) Crack cocaine use Current Visit: Yes (2) Orbital laceration Current Visit: Yes Qualifiers: Encounter type: initial encounter Laterality: left Qualified Code(s): S05.42XA - Penetrating wound of orbit with or without foreign body, left eye, initial encounter Comment: 12 intact stitches to left eyebrow (3) Nicotine dependence Current Visit: Yes Qualifiers: (4) Alcohol dependence Current Visit: Yes (5) Schizoaffective disorder Current Visit: Yes
[2017-02-03] MEDS: ACAMPROSATE CALCIUM 333 MG TABLET.DR PO SCH ×2 (16:45→21:01)
[2017-02-03] MEDS: QUEtiapine FUMARATE 25 MG TABLET (FP) PO SCH (21:01)
[2017-02-03] MEDS: THIAMINE HCL 100 MG TABLET (FP) PO SCH (21:02)
[2017-02-04] MEDS: ACAMPROSATE CALCIUM 333 MG TABLET.DR PO SCH ×3 (06:05→21:07)
[2017-02-04] MEDS: GABAPENTIN 300 MG CAPSULE (FP) PO SCH ×3 (06:05→21:07)
[2017-02-04] MEDS: IBUPROFEN 400 MG TABLET (FP) PO PRN ×2 (06:06→16:54)
[2017-02-04] MEDS: NICOTINE POLACRILEX 4 MG GUM BUC PRN ×4 (06:07→21:08)
[2017-02-04] MEDS: hydrOXYzine PAMOATE 50 MG CAPSULE (FP) PO PRN ×3 (07:31→16:53)
[2017-02-04] MEDS: OLANZapine 10 MG TABLET PO SCH ×2 (09:40→21:07)
[2017-02-04] MEDS: BENZTROPINE MESYLATE 1 MG TABLET (FP) PO SCH ×2 (09:40→21:07)
[2017-02-04] MEDS: ESCITALOPRAM OXALATE 20 MG TABLET (FP) PO SCH (09:40)
[2017-02-04] MEDS: PRENATAL VITAMINS W/ FOLIC ACID TABLET (FP) PO SCH (09:40)
[2017-02-04] MEDS: NICOTINE 21 MG/24 HOURS TOPICAL PATCH TD SCH (09:40)
[2017-02-04] MEDS ORDERED: PT OWN MED DRAWER 7, Y5N ONE ×3 (21:02→23:03)
[2017-02-04] MEDS: QUEtiapine FUMARATE 25 MG TABLET (FP) PO SCH (21:07)
[2017-02-04] MEDS: THIAMINE HCL 100 MG TABLET (FP) PO SCH (21:08)
[2017-02-04] MEDS: HALOPERIDOL 5 MG TABLET (FP) PO PRN (21:57)
[2017-02-04 23:25] LABS: URINE APPEARANCE SLCLOUDY; URINE BILIRUBIN NEGATIVE (NEGATIVE); URINE BLOOD NEGATIVE (NEGATIVE); URINE COLOR YELLOW; URINE GLUCOSE (UA) NEGATIVE (NEGATIVE); URINE KETONE NEGATIVE (NEGATIVE); URINE NITRITE NEGATIVE (NEGATIVE); URINE PROTEIN NEGATIVE (NEGATIVE); URINE UROBILINOGEN NEGATIVE mg/dL (0.2-1.0)
[2017-02-05] MEDS: IBUPROFEN 400 MG TABLET (FP) PO PRN ×2 (06:48→15:35)
[2017-02-05] MEDS: GABAPENTIN 300 MG CAPSULE (FP) PO SCH ×3 (06:48→21:06)
[2017-02-05] MEDS: ACAMPROSATE CALCIUM 333 MG TABLET.DR PO SCH ×3 (06:48→21:06)
[2017-02-05] MEDS: hydrOXYzine PAMOATE 50 MG CAPSULE (FP) PO PRN ×3 (06:48→17:36)
[2017-02-05] MEDS: ESCITALOPRAM OXALATE 20 MG TABLET (FP) PO SCH (09:51)
[2017-02-05] MEDS: BENZTROPINE MESYLATE 1 MG TABLET (FP) PO SCH ×2 (09:51→21:06)
[2017-02-05] MEDS: PRENATAL VITAMINS W/ FOLIC ACID TABLET (FP) PO SCH (09:51)
[2017-02-05] MEDS: diphenhydrAMINE HCL 25 MG CAPSULE (FP) PO PRN (09:52)
[2017-02-05] MEDS: NICOTINE POLACRILEX 4 MG GUM BUC PRN ×2 (09:52→15:35)
[2017-02-05] MEDS: OLANZapine 10 MG TABLET PO SCH ×2 (09:52→21:06)
[2017-02-05] MEDS: NICOTINE 21 MG/24 HOURS TOPICAL PATCH TD SCH (09:52)
[2017-02-05] MEDS: HALOPERIDOL 5 MG TABLET (FP) PO PRN (09:52)
[2017-02-05 10:55] LABS: URINE LEUK ESTERASE Negative (NEGATIVE)
[2017-02-05 11:03] LABS: BASOPHIL 1.5 % (0-2.0); EOSINOPHIL 2.8 % (0-4.5); MCH 29.8 pg (25.7-33.7); MCHC 31.9 g/dl (32.0-36.0); MEAN CELL VOLUME 93.3 fl (80-96); MEAN PLT VOLUME 10.5 fl (7.5-11.1); NEUTROPHILS 55.2 % (42.8-82.8); PLATELET COUNT 210 K/MM3 (134-434); RDW 17.5 % (11.6-15.6); WHITE BLOOD COUNT 9.9 K/mm3 (4.0-10.0)
[2017-02-05 11:07] LABS: ALBUMIN 3.8 g/dl (3.4-5.0); ANION GAP 7 (8-16); CALCIUM 9.1 mg/dL (8.5-10.1); CO2 30 mmol/L (21-32); GLUCOSE,RANDOM 112 mg/dL (74-106); SGOT/AST 74 U/L (15-37)
[2017-02-05 11:14] LABS: ALK PHOS 145 U/L (45-117); BILIRUBIN,TOTAL 0.3 mg/dL (0.2-1.0); CREATININE 0.5 mg/dL (0.55-1.02); SGPT/ALT 137 U/L (12-78); TOT PROT 8.2 g/dl (6.4-8.2)
[2017-02-05] MEDS: QUEtiapine FUMARATE 25 MG TABLET (FP) PO SCH (21:06)
[2017-02-05] MEDS: THIAMINE HCL 100 MG TABLET (FP) PO SCH (21:06)
[2017-02-05] MEDS ORDERED: PT OWN MED DRAWER 7, Y5N ONE ×2 (21:06→23:03)
[2017-02-06] MEDS: HALOPERIDOL 5 MG TABLET (FP) PO PRN (03:08)
[2017-02-06] MEDS: diphenhydrAMINE HCL 25 MG CAPSULE (FP) PO PRN (03:08)
[2017-02-06] MEDS: ACAMPROSATE CALCIUM 333 MG TABLET.DR PO SCH ×3 (06:30→21:02)
[2017-02-06] MEDS: GABAPENTIN 300 MG CAPSULE (FP) PO SCH ×3 (06:30→21:02)
[2017-02-06] MEDS: hydrOXYzine PAMOATE 50 MG CAPSULE (FP) PO PRN ×4 (06:30→21:04)
[2017-02-06] MEDS: IBUPROFEN 400 MG TABLET (FP) PO PRN ×2 (06:31→12:20)
[2017-02-06] MEDS: ESCITALOPRAM OXALATE 20 MG TABLET (FP) PO SCH (09:44)
[2017-02-06] MEDS: PRENATAL VITAMINS W/ FOLIC ACID TABLET (FP) PO SCH (09:44)
[2017-02-06] MEDS: OLANZapine 10 MG TABLET PO SCH ×2 (09:44→21:02)
[2017-02-06] MEDS: BENZTROPINE MESYLATE 1 MG TABLET (FP) PO SCH ×2 (09:44→21:02)
[2017-02-06] MEDS: NICOTINE 21 MG/24 HOURS TOPICAL PATCH TD SCH (09:45)
[2017-02-06] MEDS: NICOTINE POLACRILEX 4 MG GUM BUC PRN ×3 (09:45→17:28)
[2017-02-06] MEDS ORDERED: PT OWN MED DRAWER 7, Y5N ONE ×2 (17:15→23:07)
[2017-02-06] MEDS: QUEtiapine FUMARATE 25 MG TABLET (FP) PO SCH (21:02)
[2017-02-06] MEDS: THIAMINE HCL 100 MG TABLET (FP) PO SCH (21:02)
[2017-02-07] MEDS: diphenhydrAMINE HCL 25 MG CAPSULE (FP) PO PRN (03:33)
[2017-02-07] MEDS: HALOPERIDOL 5 MG TABLET (FP) PO PRN (03:34)
[2017-02-07] MEDS: ACAMPROSATE CALCIUM 333 MG TABLET.DR PO SCH (06:10)
[2017-02-07] MEDS: IBUPROFEN 400 MG TABLET (FP) PO PRN (06:11)
[2017-02-07] MEDS: hydrOXYzine PAMOATE 50 MG CAPSULE (FP) PO PRN (06:11)
[2017-02-07] MEDS: GABAPENTIN 300 MG CAPSULE (FP) PO SCH (06:11)
[2017-02-07 06:50] VITALS: BP 126/79; PULSE 98; TEMP 97.4
[2017-02-07] MEDS: NICOTINE POLACRILEX 4 MG GUM BUC PRN (07:09)
--- NOTE | 2017-02-07 08:57 | PN ---
Psychiatric Progress Note Vital Signs: Vital Signs Period Temp Pulse Resp BP Sys/Bianchi Pulse Ox Last 24 Hr 97.4 F 98 18-18 126/79 Date of Session: 02/07/17 Chief Complaint:: Discharge visit HPI: Patient addressed Cocaine and Alcohol dependence comorbid with Schizoaffective disorder. ROS: unremarkable Current Medications: Active Medications Generic Name Dose Route Start Last Admin Trade Name Freq PRN Reason Stop Dose Admin Acamprosate 666 mg 02/03/17 16:00 02/07/17 06:10 Campral - PO 666 mg TID RANJITH Administration Acetaminophen 650 mg 01/25/17 13:12 Tylenol - PO Q4H PRN FEVER OR PAIN Al Hydroxide/Mg Hydroxide 30 ml 01/25/17 13:12 Mylanta Oral Suspension - PO Q6H PRN DYSPEPSIA Benztropine Mesylate 1 mg 01/30/17 13:00 02/06/17 21:02 Cogentin - PO 1 mg BID RANJITH Administration Diphenhydramine HCl 25 mg 01/27/17 17:23 02/07/17 03:33 Benadryl - PO 25 mg BID PRN Administration AGITATION Escitalopram Oxalate 20 mg 01/26/17 10:00 02/06/17 09:44 Lexapro - PO 20 mg DAILY RANJITH Administration Eucalyptus/Menthol/Phenol/Sorbitol 1 each 01/25/17 13:12 Cepastat Lozenge - MM Q4H PRN SORE THROAT Gabapentin 300 mg 01/26/17 06:00 02/07/17 06:11 Neurontin - PO 300 mg TID RANJITH Administration Guaifenesin 10 ml 01/25/17 13:12 Robitussin Dm - PO Q6H PRN COUGH Haloperidol 5 mg 01/27/17 17:23 02/07/17 03:34 Haldol - PO 5 mg BID PRN Administration AGITATION Hydroxyzine Pamoate 50 mg 01/27/17 14:31 02/07/17 06:11 Vistaril - PO 50 mg Q4H PRN Administration ANXIETY Ibuprofen 400 mg 01/25/17 13:12 02/07/17 06:11 Motrin - PO 400 mg Q6H PRN Administration PAIN Loperamide HCl 4 mg 01/25/17 13:12 Imodium - PO Q6H PRN DIARRHEA Magnesium Citrate 300 ml 01/25/17 13:12 Citroma - PO Q48H PRN CONSTIPATION Magnesium Hydroxide 30 ml 01/25/17 13:12 Milk Of Magnesia - PO DAILY PRN CONSTIPATION Nicotine 21 mg 01/26/17 10:00 02/06/17 09:45 Nicoderm Patch - TD 21 mg DAILY RANJITH Administration Nicotine Polacrilex 4 mg 01/25/17 13:12 02/07/17 07:09 Nicorette Gum - BUC 4 mg Q2H PRN Administration NICOTINE REPLACEMENT RX Olanzapine 10 mg 01/30/17 13:00 02/06/17 21:02 Zyprexa - PO 10 mg BID RANJITH Administration Multivit/Folic Acid/Iron 1 tab 01/26/17 10:00 02/06/17 09:44 Vitamins (Sjr) - PO 1 tab DAILY RANJITH Administration Pseudoephedrine/Triprolidine 1 combo 01/25/17 13:12 Actifed - PO TID PRN NASAL CONGESTION Quetiapine Fumarate 150 mg 01/25/17 22:00 02/06/17 21:02 Seroquel - PO 150 mg HS RANJITH Administration Thiamine HCl 100 mg 01/25/17 22:00 02/06/17 21:02 Vitamin B1 - PO 100 mg HS RANJITH Administration Current Side Effect: No Lab tests ordered: No Lab tests reviewed: Yes Provider note:: Patient completed this program today.She has met her treatment goals and will continue to address her issues on outpatient basis at local [facility] meetings at [facility].Patient reports finding that current medications including Seroquel 150 mg po hs,Zyprexa 10 mg po bid,Cogentin 1 mg po bid, Neurontin 300 mg po tid help to cope with mood swings,depression,insomnia, psychotic symptoms.Scripts for 30 days provided. Patient identifies areas of difficulties,focuses on insight gained in treatment and ways she plans to utilize supports,coping skills to maintain recovery. Patient is stable for discharge today. Mental Status Exam - Mental Status Exam Alert and Oriented to: Time, Place, Person Cognitive Function: Grossly Intact Patient Appearance: Well Groomed Mood: Hopeful, Euthymic Affect: Appropriate, Mood Congruent Patient Behavior: Cooperative Speech Pattern: Clear Voice Loudness: Normal Thought Process: Goal Oriented Thought Disorder: Not Present Hallucinations: Denies Suicidal Ideation: Denies Homicidal Ideation: Denies Insight/Judgement: Fair Sleep: Fair Appetite: Good Muscle strength/Tone: Normal Gait/Station: Normal Psychiatric Treatment Plan - Problem List (1) Crack cocaine use Current Visit: Yes (2) Orbital laceration Current Visit: Yes Qualifiers: Encounter type: initial encounter Laterality: left Qualified Code(s): S05.42XA - Penetrating wound of orbit with or without foreign body, left eye, initial encounter Comment: 12 intact stitches to left eyebrow (3) Nicotine dependence Current Visit: Yes Qualifiers: (4) Alcohol dependence Current Visit: Yes (5) Schizoaffective disorder Current Visit: Yes
[2017-02-07] MEDS: ESCITALOPRAM OXALATE 20 MG TABLET (FP) PO SCH (09:21)
[2017-02-07] MEDS: OLANZapine 10 MG TABLET PO SCH (09:21)
[2017-02-07] MEDS: BENZTROPINE MESYLATE 1 MG TABLET (FP) PO SCH (09:21)
[2017-02-07] MEDS: NICOTINE 21 MG/24 HOURS TOPICAL PATCH TD SCH (09:22)
[2017-02-07] MEDS: PRENATAL VITAMINS W/ FOLIC ACID TABLET (FP) PO SCH (09:22)
== END 2017-02-07 09:42 | disposition home or self-care (01) | DRG 772 ==
LOC: YASAS 11:51 → Y3E 11:52
PROVIDERS: ADMIT Psychiatry & Neurology Psychiatry; ATTEND Psychiatry & Neurology Psychiatry
PROC: HZ42ZZZ Group Counseling for Substance Abuse Treatment, Cognitive-Behavioral (ICD-10-PCS; principal; 2017-01-25)
DX: F11.23 Opioid dependence with withdrawal (principal); F14.20 Cocaine dependence, uncomplicated; F17.210 Nicotine dependence, cigarettes, uncomplicated; F25.9 Schizoaffective disorder, unspecified; F19.24 Other psychoactive substance dependence with psychoactive substance-induced mood disorder; S05.42XA Penetrating wound of orbit with or without foreign body, left eye, initial encounter
CPT/HCPCS: 36415; 80053; 81003; 85025

== ENCOUNTER 2017-02-27 11:55 | Inpatient (IN) | payer OTHER ==
[2017-02-27 14:04] VITALS: BMI 26.2
--- NOTE | 2017-02-27 14:14 | HP ---
CIWA Score - CIWA Score Nausea/Vomitin Muscle Tremors: 4-Moderate,w/Arms Extend Anxiety: 5 Agitation: 4-Moderately Restless Paroxysmal Sweats: No Perspiration Orientation: 2-Disoriented Date<2 days Tacttile Disturbances: 0-None Auditory Disturbances: 0-None Visual Disturbances: 0-None Headache: 0-None Present CIWA-Ar Total Score: 18 Admission ROS S - HPI Chief Complaint: "I need to Detox from Alcohol." Patient is here to Detox from Alcohol. Allergies/Adverse Reactions: Allergies Allergy/AdvReac Type Severity Reaction Status Date / Time penicillin G Allergy Severe Difficulty Verified 02/27/17 13:32 Breathing apple Allergy Unknown Verified 02/27/17 13:32 lemon Allergy Unknown Verified 02/27/17 13:32 raspberry Allergy Unknown Verified 02/27/17 13:32 History of Present Illness: Patient is a 26 YO female here to Detox from Alcohol. Patient has had 1 previous Detox admission at [facility] (01/2017). Patient had previous Detox admissions at [facility] (2017), [facility] (2017), and [facility] (2017). Longest period of sobriety in recent years: approx. 6 months (2016). Exam Limitations: No Limitations - Ebola screening Have you traveled outside of the country in the last 21 days: No Have you had contact with anyone from an Ebola affected area: No Have you been sick,other than usual withdrawal symptoms: No Do you have a fever: No - Review of Systems Constitutional: Chills, Diaphoresis, Fever, Loss of Appetite, Malaise, Night Sweats EENT: reports: Blurred Vision, Hearing Loss (Right Ear, has previously been medically evaluated.) Respiratory: reports: Productive cough Cardiac: reports: Palpitations GI: reports: Nausea, Indigestion (Heartburn.) : reports: No Symptoms Reported Musculoskeletal: reports: Joint Pain, Joint Stiffness Integumentary: reports: No Symptoms Reported Neuro: reports: Headache, Seizure (Due to Withdrawal; Last episode: 01/2017.), Tremors Endocrine: reports: No Symptoms Reported Hematology: reports: Anemia (Uncertain about type.) Psychiatric: reports: Judgement Intact, Mood/Affect Appropiate, Anxious, Depressed (On meds.), Disorientated (To Current Day / Date.) Other Systems: Reviewed and Negative Patient History - Patient Medical History Hx Anemia: Yes (Uncertain about type.) Hx Asthma: No Hx Chronic Obstructive Pulmonary Disease (COPD): No Hx Cancer: No Hx Cardiac Disorders: No Hx Congestive Heart Failure: No Hx Hypertension: No Hx Hypercholesterolemia: No Hx Pacemaker: No HX Cerebrovascular Accident: No Hx Seizures: Yes (Due to Withdrawal; Last Episode: 01/2017.) Hx Dementia: No Hx Diabetes: No Hx Gastrointestinal Disorders: Yes (acid reflux) Hx Liver Disease: No Hx Genitourinary Disorders: No Hx Sexually Transmitted Disorders: No Hx Renal Disease (ESRD): No Hx Thyroid Disease: No Hx Human Immunodeficiency Virus (HIV): No (Negative History.) Hx Hepatitis C: No (Negative History. ) Hx Depression: Yes (On meds.) Hx Suicide Attempt: Yes (cut left wrist in 11/2016; PATIENT DENIES CURRENT SI / HI.) Hx Bipolar Disorder: Yes (On meds.) Hx Schizophrenia: Yes (schizoaffective disorder; On meds.) Other Medical History: Anxiety. - Patient Surgical History Past Surgical History: No Hx Neurologic Surgery: No Hx Cataract Extraction: No Hx Cardiac Surgery: No Hx Lung Surgery: No Hx Breast Surgery: No Hx Breast Biopsy: No Hx Abdominal Surgery: No Hx Appendectomy: No Hx Cholecystectomy: No Hx Genitourinary Surgery: No Hx Section: No Hx Orthopedic Surgery: No Anesthesia Reaction: No - PPD History Previous Implant?: Yes Documented Results: Negative w/proof Implanted On Prior [facility] Admission?: Yes Date: 01/23/17 Results: 0 mm PPD to be Administered?: No - Reproductive History Patient is a Female of Child Bearing Age (11 -55 yrs old): Yes Last Menstrual Period: 02/03/17 Patient : No - Smoking Cessation Smoking history: Current every day smoker Have you smoked in the past 12 months: Yes Aproximately how many cigarettes per day: 40 Cigars Per Day: 0 Hx Chewing Tobacco Use: No Initiated information on smoking cessation: Yes 'Breaking Loose' booklet given: 02/27/17 (GIVEN ON UNIT.) - Substance & Tx. History Hx Alcohol Use: Yes Hx Substance Use: Yes Substance Use Type: Alcohol, Cocaine, Heroin Hx Substance Use Treatment: Yes (Previous Detox admission at [facility] in 01/2017.) - Substances Abused Heroin Route: Inhalation Frequency: 1-2 times per week Amount used: 1 bag Age of first use: 26 Date of Last Use: 02/26/17 Crack Route: Smoking Frequency: 1-2 times per week Amount used: $50 Age of first use: 26 Date of Last Use: 02/20/17 Alcohol-whisky/vodka Route: Oral Frequency: Daily Amount used: 3 pts. Vodka Age of first use: 10 Date of Last Use: 02/26/17 Family Disease History - Family Disease History Family Disease History: Diabetes: Father, Other: Grandparent (Schizophrenia.), Mother (etoh) Admission Physical Exam S - Vital Signs Vital Signs: Vital Signs - 24 hr 02/27/17 13:40 Temperature 98.4 F Pulse Rate 112 H Respiratory 18 Rate Blood Pressure 116/81 - Physical General Appearance: Yes: Nourished, Appropriately Dressed, Moderate Distress, Tremorous, Anxious HEENTM: Yes: Hearing grossly Normal, Normocephalic, Normal Voice, YOLANDA, Pharynx Normal Respiratory: Yes: Chest Non-Tender, Lungs Clear, No Respiratory Distress, No Accessory Muscle Use Neck: Yes: No masses,lesions,Nodules, Supple, Trachea in good position Breast: Yes: Breast Exam Deferred Cardiology: Yes: Regular Rhythm, Regular Rate, S1, S2 Abdominal: Yes: Normal Bowel Sounds, Non Tender, Flat, Soft Genitourinary: Yes: Within Normal Limits Back: Yes: Decreased Range of Motion Musculoskeletal: Yes: Gait Steady, Joint Stiffness, Muscle Pain Extremities: Yes: Normal Capillary Refill, Non-Tender, Tremors 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: Yes: Alert, Normal Mood/Affect, Normal Response, Disoriented (To Current Day / Date.) Integumentary: Yes: Normal Color, Dry, Warm Lymphatic: Yes: Within Normal Limits - Diagnostic (1) Cocaine dependence, uncomplicated Current Visit: Yes Status: Chronic (2) Opioid dependence, uncomplicated Current Visit: Yes Status: Chronic (3) History of bipolar disorder Current Visit: Yes Status: Chronic (4) History of schizoaffective disorder Current Visit: Yes Status: Chronic (5) History of depression Current Visit: Yes Status: Chronic (6) Anxiety Current Visit: Yes Status: Chronic (7) Alcohol dependence with uncomplicated withdrawal Current Visit: Yes Status: Acute (8) Nicotine dependence Current Visit: Yes Status: Chronic Qualifiers: Nicotine product type: cigarettes Substance use status: uncomplicated Qualified Code(s): F17.210 - Nicotine dependence, cigarettes, uncomplicated (9) Acid reflux Current Visit: Yes Status: Chronic Qualifiers: Esophagitis presence: esophagitis presence not specified Qualified Code(s) : K21.9 - Gastro-esophageal reflux disease without esophagitis (10) History of seizures Current Visit: Yes Status: Suspected Comment: Due To Withdrawal. Cleared for Admission [facility] - Detox or Rehab [facility] Level of Care: Medically Managed Detox Regimen/Protocol: Librium S Breath Alcohol Content Breath Alcohol Content: 0.327 Urine Pregancy Test - Result Urine Test Results: Negative- NO Line Present Urine Drug Screen - Results Drug Screen Negative: No Urine Drug Screen Results: BZO-Benzodiazepines, TCA-Tricyclic Antidepress
[2017-02-27] MEDS ORDERED: MENTHOL/PHENOL 1 EACH UD MM PRN (14:47)
[2017-02-27] MEDS ORDERED: guaiFENesin/D-METHORPHAN HB 10 ML UNIT-DOSE CUPS PO PRN (14:47)
[2017-02-27] MEDS ORDERED: MAGNESIUM CITRATE 300 ML BOTTLE PO PRN (14:47)
[2017-02-27] MEDS ORDERED: P-EPHED 60MG/TRIPROLIDI 2.5MG TABLET PO PRN (14:47)
[2017-02-27] MEDS ORDERED: ACETAMINOPHEN 325 MG TABLET (FP) PO PRN (14:47)
[2017-02-27] MEDS ORDERED: MAGNESIUM HYDROX 2400MG/30ML ORAL SUSPENSION 30 ML CUP PO PRN (14:47)
[2017-02-27] MEDS ORDERED: TRIMETHOBENZAMIDE HCL 200MG/2ML INJ IM PRN (14:52)
[2017-02-27] MEDS ORDERED: chlordiazePOXIDE HCL 25 MG CAPSULE PO ONE (14:57)
[2017-02-27] MEDS: NICOTINE 21 MG/24 HOURS TOPICAL PATCH TD SCH (15:27)
[2017-02-27 16:55] LABS: HEMATOCRIT 38.7 % (32.4-45.2); HEMOGLOBIN 12.9 GM/dL (10.7-15.3); MCH 28.9 pg (25.7-33.7); MCHC 33.3 g/dl (32.0-36.0); MEAN CELL VOLUME 86.9 fl (80-96); PLATELET COUNT 315 K/MM3 (134-434); RBC 4.45 M/mm3 (3.60-5.2); RDW 18.3 % (11.6-15.6); WHITE BLOOD COUNT 9.4 K/mm3 (4.0-10.0)
[2017-02-27] MEDS: NICOTINE POLACRILEX 4 MG GUM BUC PRN ×2 (17:13→19:18)
[2017-02-27] MEDS: chlordiazePOXIDE HCL 25 MG CAPSULE PO SCH ×2 (17:13→22:38)
[2017-02-27 17:17] LABS: ALBUMIN 4.3 g/dl (3.4-5.0); ALK PHOS 174 U/L (45-117); ANION GAP 8 (8-16); BILIRUBIN,TOTAL 0.5 mg/dL (0.2-1.0); BLOOD UREA NITROGEN 14 mg/dL (7-18); CALCIUM 8.8 mg/dL (8.5-10.1); CHLORIDE 101 mmol/L (98-107); CO2 28 mmol/L (21-32); CREATININE 0.8 mg/dL (0.55-1.02); GLUCOSE,RANDOM 118 mg/dL (74-106); POTASSIUM 3.8 mmol/L (3.5-5.1); SGOT/AST 96 U/L (15-37); SGPT/ALT 49 U/L (12-78); SODIUM 137 mmol/L (136-145); TOT PROT 9.4 g/dl (6.4-8.2)
[2017-02-27] MEDS: chlordiazePOXIDE HCL 25 MG CAPSULE PO PRN (18:51)
[2017-02-27] MEDS: MAG HYDROX/AL HYDROX/SIMETH 30 ML UNIT-DOSE CUP PO PRN (19:55)
[2017-02-27 20:57] LABS: URINE APPEARANCE CLEAR; URINE BILIRUBIN NEGATIVE (NEGATIVE); URINE BLOOD 1+ (NEGATIVE); URINE COLOR STRAW; URINE GLUCOSE (UA) NEGATIVE (NEGATIVE); URINE KETONE NEGATIVE (NEGATIVE); URINE LEUK ESTERASE NEGATIVE (NEGATIVE); URINE NITRITE NEGATIVE (NEGATIVE); URINE PROTEIN NEGATIVE (NEGATIVE); URINE UROBILINOGEN NEGATIVE mg/dL (0.2-1.0)
[2017-02-27 21:38] LABS: EPI CELLS RARE /HPF (FEW); URINE BACTERIA RARE /hpf (NONE SEEN)
[2017-02-27] MEDS ORDERED: QUEtiapine FUMARATE 50 MG TABLET PO SCH (22:00)
[2017-02-27] MEDS: THIAMINE HCL 100 MG TABLET (FP) PO SCH (22:38)
[2017-02-27] MEDS: GABAPENTIN 300 MG CAPSULE (FP) PO SCH (22:38)
[2017-02-28] MEDS: chlordiazePOXIDE HCL 25 MG CAPSULE PO SCH ×4 (04:12→22:28)
[2017-02-28] MEDS: GABAPENTIN 300 MG CAPSULE (FP) PO SCH ×3 (06:10→22:28)
[2017-02-28] MEDS: chlordiazePOXIDE HCL 25 MG CAPSULE PO PRN ×2 (09:06→15:16)
[2017-02-28] MEDS: NICOTINE POLACRILEX 4 MG GUM BUC PRN ×3 (09:12→22:29)
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
[2017-02-28] MEDS: PANTOPRAZOLE 40 MG TABLET (FP) PO SCH (10:40)
[2017-02-28] MEDS: ESCITALOPRAM OXALATE 20 MG TABLET (FP) PO SCH (10:40)
[2017-02-28] MEDS: PRENATAL VITAMINS W/ FOLIC ACID TABLET (FP) PO SCH (10:40)
[2017-02-28] MEDS: NICOTINE 21 MG/24 HOURS TOPICAL PATCH TD SCH (10:41)
[2017-02-28] MEDS: LOPERAMIDE HCL 2 MG CAPSULE PO PRN ×2 (10:59→15:41)
--- NOTE | 2017-02-28 16:16 | PN ---
S CIWA - CIWA Score Nausea/Vomitin Muscle Tremors: 5 Anxiety: 4-Mod. Anxious/Guarded Agitation: 4-Moderately Restless Paroxysmal Sweats: 3 Orientation: 0-Oriented Tacttile Disturbances: 1-Very Mild Itch/Numbness Auditory Disturbances: 0-None Visual Disturbances: 0-None Headache: 0-None Present CIWA-Ar Total Score: 20 BHS Progress Note (SOAP) Subjective: Sweating, nausea, tremor, diarrhea Objective: 02/28/17 16:13 Last Vital Signs Temp Pulse Resp BP Pulse Ox 97.9 F 113 H 20 136/91 02/28/17 15:17 02/28/17 15:17 02/28/17 15:17 02/28/17 15:17 Laboratory Tests 02/27/17 02/27/17 02/27/17 15:30 15:30 15:30 WBC 9.4 RBC 4.45 Hgb 12.9 D Hct 38.7 MCV 86.9 D MCH 28.9 MCHC 33.3 RDW 18.3 H Plt Count 315 D MPV 9.0 D Sodium 137 Potassium 3.8 Chloride 101 Carbon Dioxide 28 Anion Gap 8 BUN 14 D Creatinine 0.8 D Creat Clearance w eGFR > 60 Random Glucose 118 H Calcium 8.8 Total Bilirubin 0.5 D AST 96 H D ALT 49 D Alkaline Phosphatase 174 H Total Protein 9.4 H Albumin 4.3 Urine Color Urine Appearance Urine pH Ur Specific [place] Urine Protein Urine Glucose (UA) Urine Ketones Urine Blood Urine Nitrite Urine Bilirubin Urine Urobilinogen Ur Leukocyte Esterase Urine WBC (Auto) Urine RBC (Auto) Ur Epithelial Cells Urine Bacteria RPR Titer Nonreactive 02/27/17 18:30 WBC RBC Hgb Hct MCV MCH MCHC RDW Plt Count MPV Sodium Potassium Chloride Carbon Dioxide Anion Gap BUN Creatinine Creat Clearance w eGFR Random Glucose Calcium Total Bilirubin AST ALT Alkaline Phosphatase Total Protein Albumin Urine Color Straw Urine Appearance Clear Urine pH 6.0 Ur Specific [place] 1.006 Urine Protein Negative Urine Glucose (UA) Negative Urine Ketones Negative Urine Blood 1+ H Urine Nitrite Negative Urine Bilirubin Negative Urine Urobilinogen Negative Ur Leukocyte Esterase Negative Urine WBC (Auto) <1 Urine RBC (Auto) <1 Ur Epithelial Cells Rare Urine Bacteria Rare RPR Titer Labs noted: UA shows 1+ blood Assessment: 02/28/17 16:14 Withdrawal symptoms Noted with microscopic hematuria Plan: Continue detox Microscopic hematuria: encouraged to drink lots of water, repeat UA
[2017-02-28] MEDS: MAG HYDROX/AL HYDROX/SIMETH 30 ML UNIT-DOSE CUP PO PRN (18:56)
[2017-02-28] MEDS ORDERED: ZOLPIDEM TARTRATE 5 MG TABLET PO PRN (22:00)
[2017-02-28] MEDS: IBUPROFEN 400 MG TABLET (FP) PO PRN (22:27)
[2017-02-28] MEDS: cloNIDine HCL 0.1 MG TABLET PO PRN (22:28)
[2017-02-28] MEDS: THIAMINE HCL 100 MG TABLET (FP) PO SCH (22:28)
[2017-03-01] MEDS: GABAPENTIN 300 MG CAPSULE (FP) PO SCH ×3 (05:57→22:30)
[2017-03-01] MEDS: chlordiazePOXIDE HCL 25 MG CAPSULE PO SCH ×2 (05:57→10:03)
[2017-03-01] MEDS: ESCITALOPRAM OXALATE 20 MG TABLET (FP) PO SCH (10:03)
[2017-03-01] MEDS: cloNIDine HCL 0.1 MG TABLET PO PRN ×2 (10:03→20:09)
[2017-03-01] MEDS: PANTOPRAZOLE 40 MG TABLET (FP) PO SCH (10:03)
[2017-03-01] MEDS: PRENATAL VITAMINS W/ FOLIC ACID TABLET (FP) PO SCH (10:03)
[2017-03-01] MEDS: NICOTINE 21 MG/24 HOURS TOPICAL PATCH TD SCH (10:04)
[2017-03-01] MEDS: LOPERAMIDE HCL 2 MG CAPSULE PO PRN ×2 (11:05→21:49)
[2017-03-01] MEDS: NICOTINE POLACRILEX 4 MG GUM BUC PRN ×4 (11:06→22:30)
--- NOTE | 2017-03-01 11:30 | EKG ---
Test Reason : Blood Pressure : / mmHG Vent. Rate : 097 BPM Atrial Rate : 097 BPM P-R Int : 156 ms QRS Dur : 080 ms QT Int : 384 ms P-R-T Axes : 053 030 037 degrees QTc Int : 487 ms NORMAL SINUS RHYTHM POOR R WAVE PROGRESSION ABNORMAL ECG WHEN COMPARED WITH ECG OF 27-FEB-2017 15:35, NO SIGNIFICANT CHANGE WAS FOUND BASELINE ARTIFACT Confirmed by AMAURY GUILLEN, JENNIFER ([id number]) on 03/01/2017 11:30:20 AM Referred By: Confirmed By:JENNIFER REBOLLEDO MD
--- NOTE | 2017-03-01 11:32 | EKG ---
Test Reason : Blood Pressure : / mmHG Vent. Rate : 101 BPM Atrial Rate : 101 BPM P-R Int : 166 ms QRS Dur : 078 ms QT Int : 368 ms P-R-T Axes : 053 020 043 degrees QTc Int : 477 ms SINUS TACHYCARDIA OTHERWISE NORMAL ECG WHEN COMPARED WITH ECG OF 21-JAN-2017 18:23, NO SIGNIFICANT CHANGE WAS FOUND BASELINE ARTIFACT Confirmed by JENNIFER REBOLLEDO MD ([id number]) on 03/01/2017 11:32:31 AM Referred By: Confirmed By:JENNIFER REBOLLEDO MD
[2017-03-01] MEDS: IBUPROFEN 400 MG TABLET (FP) PO PRN ×2 (12:34→20:59)
[2017-03-01] MEDS: chlordiazePOXIDE HCL 25 MG CAPSULE PO PRN (12:34)
--- NOTE | 2017-03-01 14:31 | PN ---
S CIWA - CIWA Score Nausea/Vomitin-No Nausea/No Vomiting Muscle Tremors: 3 Anxiety: 4-Mod. Anxious/Guarded Agitation: 3 Paroxysmal Sweats: 3 Orientation: 0-Oriented Tacttile Disturbances: 0-None Auditory Disturbances: 0-None Visual Disturbances: 0-None Headache: 0-None Present CIWA-Ar Total Score: 13 BHS Progress Note (SOAP) Subjective: Anxiety,tremors,sweating,interrupted sleep,restless Objective: 03/01/17 14:30 Vital Signs - 8 hr 03/01/17 03/01/17 10:00 14:03 Temperature 98.2 F 98.2 F Pulse Rate 94 H 79 Respiratory 20 18 Rate Blood Pressure 119/79 134/76 Laboratory Tests 02/27/17 02/27/17 02/27/17 15:30 15:30 15:30 WBC 9.4 RBC 4.45 Hgb 12.9 D Hct 38.7 MCV 86.9 D MCH 28.9 MCHC 33.3 RDW 18.3 H Plt Count 315 D MPV 9.0 D Sodium 137 Potassium 3.8 Chloride 101 Carbon Dioxide 28 Anion Gap 8 BUN 14 D Creatinine 0.8 D Creat Clearance w eGFR > 60 Random Glucose 118 H Calcium 8.8 Total Bilirubin 0.5 D AST 96 H D ALT 49 D Alkaline Phosphatase 174 H Total Protein 9.4 H Albumin 4.3 Urine Color Urine Appearance Urine pH Ur Specific [place] Urine Protein Urine Glucose (UA) Urine Ketones Urine Blood Urine Nitrite Urine Bilirubin Urine Urobilinogen Ur Leukocyte Esterase Urine WBC (Auto) Urine RBC (Auto) Ur Epithelial Cells Urine Bacteria RPR Titer Nonreactive 02/27/17 18:30 WBC RBC Hgb Hct MCV MCH MCHC RDW Plt Count MPV Sodium Potassium Chloride Carbon Dioxide Anion Gap BUN Creatinine Creat Clearance w eGFR Random Glucose Calcium Total Bilirubin AST ALT Alkaline Phosphatase Total Protein Albumin Urine Color Straw Urine Appearance Clear Urine pH 6.0 Ur Specific [place] 1.006 Urine Protein Negative Urine Glucose (UA) Negative Urine Ketones Negative Urine Blood 1+ H Urine Nitrite Negative Urine Bilirubin Negative Urine Urobilinogen Negative Ur Leukocyte Esterase Negative Urine WBC (Auto) <1 Urine RBC (Auto) <1 Ur Epithelial Cells Rare Urine Bacteria Rare RPR Titer labs noted Assessment: 03/01/17 14:31 Withdrawal sx. Plan: Continue detox
[2017-03-01] MEDS: chlordiazePOXIDE 5 MG CAPSULE PO SCH ×2 (17:05→22:29)
--- NOTE | 2017-03-01 18:26 | PN ---
[facility] Progress Note Note: Psychiatry Attending's note : Case discussed with licensed pharmacist Dante Lugo on 02/28/17. Endorsement : follow repeat EKG and resume seroquel if normal. Previous records are reviewed. Notes by Dr Ontiveros + Dr Serrato : appreciated. Patient is already known to clinicians in this facility. EkG discussed,via telephone,with Dr Fernandez. Normal.No need for further repeat as per medical attending. Seroquel 100 mg po hs. Ordered. Side effects/benefits discussed with patient. Consent (verbal) given. Nursing staff aware.
[2017-03-01] MEDS ORDERED: QUEtiapine FUMARATE 100 MG TABLET (FP) PO SCH (22:00)
[2017-03-01] MEDS: THIAMINE HCL 100 MG TABLET (FP) PO SCH (22:30)
[2017-03-02] MEDS: GABAPENTIN 300 MG CAPSULE (FP) PO SCH (05:24)
[2017-03-02] MEDS: chlordiazePOXIDE 5 MG CAPSULE PO SCH (05:24)
[2017-03-02] MEDS: NICOTINE POLACRILEX 4 MG GUM BUC PRN (05:28)
[2017-03-02] MEDS: cloNIDine HCL 0.1 MG TABLET PO PRN (07:14)
--- NOTE | 2017-03-02 07:20 | EKG ---
Test Reason : Blood Pressure : / mmHG Vent. Rate : 073 BPM Atrial Rate : 073 BPM P-R Int : 172 ms QRS Dur : 146 ms QT Int : 420 ms P-R-T Axes : 056 024 038 degrees QTc Int : 462 ms NORMAL SINUS RHYTHM WITH SINUS ARRHYTHMIA NORMAL ECG WHEN COMPARED WITH ECG OF 28-FEB-2017 08:56, NO SIGNIFICANT CHANGE WAS FOUND BASELINE ARTIFACT RECOMMEND REPEAT TRACING Confirmed by AMAURY GUILLEN, JENNIFER ([id number]) on 03/02/2017 7:20:02 AM Referred By: Confirmed By:JENNIFER REBOLLEDO MD
[2017-03-02 10:00] VITALS: BP 134/8; PULSE 103; TEMP 95.7
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
[2017-03-02] MEDS ORDERED: chlordiazePOXIDE HCL 10 MG CAPSULE PO SCH (17:00)
== END 2017-03-02 09:45 | disposition home or self-care (01) | DRG 775 ==
LOC: YASAS 11:55 → Y6N 14:15
PROVIDERS: ADMIT Internal Medicine; ATTEND Internal Medicine
PROC: HZ2ZZZZ Detoxification Services for Substance Abuse Treatment (ICD-10-PCS; principal; 2017-02-27)
DX: F10.230 Alcohol dependence with withdrawal, uncomplicated (principal); F13.230 Sedative, hypnotic or anxiolytic dependence with withdrawal, uncomplicated; F12.20 Cannabis dependence, uncomplicated; F17.210 Nicotine dependence, cigarettes, uncomplicated; F91.8 Other conduct disorders; F25.9 Schizoaffective disorder, unspecified; F41.9 Anxiety disorder, unspecified; F32.9 Major depressive disorder, single episode, unspecified; F31.9 Bipolar disorder, unspecified; G47.00 Insomnia, unspecified; K21.9 Gastro-esophageal reflux disease without esophagitis; R31.29 Other microscopic hematuria; Z86.69 Personal history of other diseases of the nervous system and sense organs; Z88.0 Allergy status to penicillin; Z91.018 Allergy to other foods; Z86.2 Personal history of diseases of the blood and blood-forming organs and certain disorders involving the immune mechanism; Z91.5 Personal history of self-harm
CPT/HCPCS: 36415; 80053; 81003; 81015; 85027; 86593; 93005; 93010

== ENCOUNTER 2018-07-30 11:03 | Inpatient (IN) | payer OTHER ==
[2018-07-30 12:42] VITALS: BMI 30.9
--- NOTE | 2018-07-30 14:55 | HP ---
CIWA Score Nausea/Vomitin-Int. Nausea w/Dry Heave Muscle Tremors: 3 Anxiety: 2 Agitation: 0-Normal Activity Paroxysmal Sweats: 2 Orientation: 0-Oriented Tacttile Disturbances: 1-Very Mild Itch/Numbness Auditory Disturbances: 0-None Visual Disturbances: 0-None Headache: 0-None Present CIWA-Ar Total Score: 12 - Admission Criteria [facility]ASAS Guidelines: Admission for Medically Managed Detox: Requires at least one of the followin. CIWA greater than 12 2. Seizures within the past 24 hours 3. Delirium tremens within the past 24 hours 4. Hallucinations within the past 24 hours 5. Acute intervention needed for co occurring medical disorder 6. Acute intervention needed for co occurring psychiatric disorder 7. Severe withdrawal that cannot be handled at a lower level of care (continued vomiting, continued diarrhea, abnormal vital signs) requiring intravenous medication and/or fluids 8. Patient presents the following: CIWA greater than 12 Admission Criteria Met: Admission criteria met Admission ROS S - [facility] Chief Complaint: alcohol withdrawal symptoms Allergies/Adverse Reactions: Allergies Allergy/AdvReac Type Severity Reaction Status Date / Time penicillin G Allergy Severe Difficulty Verified 07/30/18 12:08 Breathing apple Allergy Unknown Verified 07/30/18 12:08 lemon Allergy Unknown Verified 07/30/18 12:08 raspberry Allergy Unknown Verified 07/30/18 12:08 History of Present Illness: 27 yo female with hx of alcohol dependence is here seeking detox d/t withdrawal symptoms. Patient link to [facility] on 70 mg, last medicated today, dose pending verification. Longest period of sobriety four months, reports relapsed Apr 2018. Reports hx withdrawal seizure with last episode one year ago PMHX: chronic back pain, HTN, HDL. Psych: schizophrenia, bipolar. Denies SI/ HI Exam Limitations: No Limitations - Ebola screening Have you traveled outside of the country in the last 21 days: No (N) Have you had contact with anyone from an Ebola affected area: No Do you have a fever: No - Review of Systems Constitutional: Chills, Loss of Appetite, Changes in sleep, Weakness EENT: reports: No Symptoms Reported Respiratory: reports: No Symptoms reported Cardiac: reports: No Symptoms Reported GI: reports: Nausea, Poor Appetite, Poor Fluid Intake, Vomiting : reports: No Symptoms Reported Musculoskeletal: reports: Back Pain Integumentary: reports: Other (facial acnea) Neuro: reports: Weakness Endocrine: reports: Increased Thirst Hematology: reports: No Symptoms Reported Psychiatric: reports: Orientated x3, Anxious Other Systems: Reviewed and Negative Patient History - Patient Medical History Hx Anemia: Yes (Uncertain about type.) Hx Asthma: No Hx Chronic Obstructive Pulmonary Disease (COPD): No Hx Cancer: No Hx Cardiac Disorders: No Hx Congestive Heart Failure: No Hx Hypertension: No Hx Hypercholesterolemia: No Hx Pacemaker: No HX Cerebrovascular Accident: No Hx Seizures: Yes (Due to Withdrawal; Last Episode: 01/2017.) Hx Dementia: No Hx Diabetes: No Hx Gastrointestinal Disorders: Yes (acid reflux) Hx Liver Disease: No Hx Genitourinary Disorders: No Hx Sexually Transmitted Disorders: No Hx Renal Disease (ESRD): No Hx Thyroid Disease: No Hx Human Immunodeficiency Virus (HIV): No (Negative History.) Hx Hepatitis C: No (Negative History. ) Hx Depression: Yes (On meds.) Hx Suicide Attempt: Yes (cut left wrist in 11/2016; PATIENT DENIES CURRENT SI / HI.) Hx Bipolar Disorder: Yes (On meds.) Hx Schizophrenia: Yes (schizoaffective disorder; On meds.) - Patient Surgical History Past Surgical History: No Hx Neurologic Surgery: No Hx Cataract Extraction: No Hx Cardiac Surgery: No Hx Lung Surgery: No Hx Breast Surgery: No Hx Breast Biopsy: No Hx Abdominal Surgery: No Hx Appendectomy: No Hx Cholecystectomy: No Hx Genitourinary Surgery: No Hx Section: No Hx Orthopedic Surgery: No Anesthesia Reaction: No - PPD History Previous Implant?: No Date: 01/23/17 Results: 0 mm PPD to be Administered?: Yes - Reproductive History Patient is a Female of Child Bearing Age (11 -55 yrs old): Yes Last Menstrual Period: 07/30/18 Patient : No - Smoking Cessation Smoking history: Current every day smoker Have you smoked in the past 12 months: Yes Aproximately how many cigarettes per day: 40 Cigars Per Day: 0 Hx Chewing Tobacco Use: No Initiated information on smoking cessation: Yes 'Breaking Loose' booklet given: 07/30/18 - Substance & Tx. History Hx Alcohol Use: Yes Hx Substance Use: Yes Substance Use Type: Alcohol Hx Substance Use Treatment: Yes ([facility] about two weeks ago ) - Substances abused Alcohol Substance route: Oral Frequency: Daily Amount used: 4 pints of vodka Age of first use: 10 Date of last use: 07/29/18 Family Disease History - Family Disease History Family Disease History: Diabetes: Father, Other: Grandparent (Schizophrenia.), Mother (etoh) Admission Physical Exam [facility] - Vital Signs Vital Signs: Vital Signs - 24 hr 07/30/18 12:03 Temperature 98 F Pulse Rate 108 H Respiratory 18 Rate Blood Pressure 136/86 - Physical General Appearance: Yes: Disheveled, Mild Distress, Obese, Tremorous, Sweating, Anxious HEENTM: Yes: Hearing grossly Normal, Normal ENT Inspection, Normocephalic, Normal Voice, YOLANDA, Pharynx Normal, Tm's normal, Other (cheilitis) Respiratory: Yes: Chest Non-Tender, Lungs Clear, Normal Breath Sounds Neck: Yes: Within Normal Limits Breast: Yes: Breast Exam Deferred Cardiology: Yes: Regular Rhythm, Regular Rate Abdominal: Yes: Normal Bowel Sounds, Non Tender, Flat, Soft Genitourinary: Yes: Within Normal Limits Back: Yes: Normal Inspection Musculoskeletal: Yes: full range of Motion, Gait Steady, Pelvis Stable, Other ( ambulates with cane) Extremities: Yes: Normal Capillary Refill, Normal Inspection, Normal Range of Motion, Non-Tender 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: Yes: web production 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 (4) Nicotine dependence Current Visit: Yes Status: Chronic Qualifiers: Nicotine product type: cigarettes Substance use status: uncomplicated Qualified Code(s): F17.210 - Nicotine dependence, cigarettes, uncomplicated Cleared for Admission [facility] - Detox or Rehab [facility] Level of Care: Medically Managed Detox Regimen/Protocol: Librium Breathalyzer - Breathalyzer Breathalyzer: 0.040 Urine Drug Screen - Test Device Lot number: [id number] Expiration date: 04/30/20 - Control Is test valid?: Yes - Results Drug screen NEGATIVE: No Urine drug screen results: MTD-Methadone, BZO-Benzodiazepines Inpatient Rehab Admission - Rehab Decision to Admit Inpatient rehab admission?: No
[2018-07-30] MEDS ORDERED: MENTHOL/PHENOL 1 EACH UD MM PRN (14:56)
[2018-07-30] MEDS ORDERED: MAG HYDROX/AL HYDROX/SIMETH 30 ML UNIT-DOSE CUP PO PRN (14:56)
[2018-07-30] MEDS ORDERED: NICOTINE POLACRILEX 4 MG GUM BUC PRN (14:56)
[2018-07-30] MEDS ORDERED: ACETAMINOPHEN 325 MG TABLET (FP) PO PRN (14:56)
[2018-07-30] MEDS ORDERED: MAGNESIUM CITRATE 300 ML BOTTLE PO PRN (14:56)
[2018-07-30] MEDS ORDERED: BISMUTH SUBSALICYLATE 262 MG/15 ML BTL PO PRN (14:56)
[2018-07-30] MEDS ORDERED: MAGNESIUM HYDROX 2400MG/30ML ORAL SUSPENSION 30 ML CUP PO PRN (14:56)
[2018-07-30] MEDS: chlordiazePOXIDE HCL 25 MG CAPSULE PO SCH ×2 (16:19→22:09)
[2018-07-30] MEDS: chlordiazePOXIDE HCL 25 MG CAPSULE PO PRN (20:16)
[2018-07-30] MEDS: cloNIDine HCL 0.1 MG TABLET PO SCH (22:09)
[2018-07-30] MEDS: MELATONIN 5 MG TABLETS PO PRN (22:13)
[2018-07-30] MEDS: THIAMINE HCL 100 MG TABLET (FP) PO SCH (22:13)
[2018-07-30] MEDS: hydrOXYzine HCL 25 MG TABLET (FP) PO PRN (22:14)
[2018-07-30] MEDS: ACETAMINOPHEN 325 MG TABLET (FP) PO PRN (22:14)
[2018-07-31] MEDS: chlordiazePOXIDE HCL 25 MG CAPSULE PO PRN ×3 (01:34→19:43)
[2018-07-31] MEDS ORDERED: METHADONE HCL 10 MG TABLET PO SCH (06:00)
[2018-07-31] MEDS: chlordiazePOXIDE HCL 25 MG CAPSULE PO SCH ×4 (06:31→22:14)
[2018-07-31] MEDS ORDERED: METHADONE HCL 40 MG DISPERSABLE TABLET ONE (06:33)
[2018-07-31] MEDS ORDERED: METHADONE HCL 10 MG TABLET ONE (06:33)
[2018-07-31] MEDS: METHADONE 40 MG, METHADONE 30 MG PO SCH (06:34)
[2018-07-31] MEDS: cloNIDine HCL 0.1 MG TABLET PO SCH ×2 (10:16→22:14)
[2018-07-31] MEDS: NICOTINE 21 MG/24 HOURS TOPICAL PATCH TD SCH (10:17)
[2018-07-31] MEDS: PRENATAL VITAMINS W/ FOLIC ACID TABLET (FP) PO SCH (10:17)
[2018-07-31] MEDS: ACETAMINOPHEN 325 MG TABLET (FP) PO PRN (10:21)
[2018-07-31 10:53] LABS: HEMATOCRIT 40.2 % (32.4-45.2); HEMOGLOBIN 13.6 GM/dL (10.7-15.3); MCH 32.4 pg (25.7-33.7); MCHC 33.8 g/dl (32.0-36.0); MEAN CELL VOLUME 95.9 fl (80-96); MEAN PLT VOLUME 10.7 fl (7.5-11.1); PLATELET COUNT 121 K/MM3 (134-434); RDW 14.4 % (11.6-15.6); WHITE BLOOD COUNT 5.7 K/mm3 (4.0-10.0)
[2018-07-31 11:09] LABS: ALBUMIN 3.6 g/dl (3.4-5.0); BILIRUBIN,TOTAL 0.5 mg/dL (0.2-1); CALCIUM 8.9 mg/dL (8.5-10.1); CREATININE 0.5 mg/dL (0.55-1.3); POTASSIUM 3.7 mmol/L (3.5-5.1); TOT PROT 7.6 g/dl (6.4-8.2)
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
[2018-07-31] MEDS ORDERED: HALOPERIDOL 5 MG TABLET (FP) PO SCH (11:45)
--- NOTE | 2018-07-31 12:02 | PN ---
S CIWA - CIWA Score Nausea/Vomitin-No Nausea/No Vomiting Muscle Tremors: 3 Anxiety: 3 Agitation: 3 Paroxysmal Sweats: 2 Orientation: 0-Oriented Tacttile Disturbances: 0-None Auditory Disturbances: 0-None Visual Disturbances: 0-None Headache: 0-None Present CIWA-Ar Total Score: 11 BHS Progress Note (SOAP) Subjective: sweats shakes interrupted sleep body aches anxiety agitation Objective: 07/31/18 12:03 Vital Signs Temperature 98.4 F 07/31/18 10:34 Pulse Rate 66 07/31/18 10:34 Respiratory Rate 18 07/31/18 10:34 Blood Pressure 119/80 07/31/18 10:34 O2 Sat by Pulse Oximetry (%) Laboratory Tests 07/30/18 07/31/18 07/31/18 14:32 07:00 07:00 WBC 5.7 RBC 4.20 Hgb 13.6 Hct 40.2 MCV 95.9 MCH 32.4 D MCHC 33.8 RDW 14.4 D Plt Count 121 L D MPV 10.7 D Sodium 138 Potassium 3.7 Chloride 104 Carbon Dioxide 26 Anion Gap 7 L BUN 6 L Creatinine 0.5 L Est GFR (CKD-EPI)AfAm 155.90 Est GFR (CKD-EPI)NonAf 134.52 Random Glucose 108 H Calcium 8.9 Total Bilirubin 0.5 AST 149 H ALT 163 H Alkaline Phosphatase 175 H Total Protein 7.6 Albumin 3.6 POC Urine HCG, Qual Negative labs noted elevated transaminase noted aaox3 ambulating no acute distress will repeat ast/alt Assessment: 07/31/18 12:06 withdrawal sx Plan: continue detox increase fluids repeat ast/alt d/c tylenol
[2018-07-31] MEDS: METHOCARBAMOL 500 MG TABLET PO PRN ×2 (12:41→22:14)
[2018-07-31] MEDS: hydrOXYzine HCL 25 MG TABLET (FP) PO PRN (12:42)
[2018-07-31] MEDS: ESCITALOPRAM OXALATE 20 MG TABLET (FP) PO SCH (13:03)
--- NOTE | 2018-07-31 13:11 | EKG ---
Test Reason : Blood Pressure : / mmHG Vent. Rate : 079 BPM Atrial Rate : 079 BPM P-R Int : 154 ms QRS Dur : 086 ms QT Int : 390 ms P-R-T Axes : 063 044 052 degrees QTc Int : 447 ms NORMAL SINUS RHYTHM NORMAL ECG WHEN COMPARED WITH ECG OF 01-MAR-2017 12:30, QRS DURATION HAS DECREASED Confirmed by CLEMENTINE MACHADO MD ([id number]) on 07/31/2018 1:11:22 PM Referred By: Confirmed By:CLEMENTINE MACHADO MD
[2018-07-31] MEDS: ARIPiprazole 5 MG TABLET (FP) PO SCH (14:20)
[2018-07-31] MEDS: IBUPROFEN 400 MG TABLET (FP) PO PRN (17:51)
[2018-07-31] MEDS: THIAMINE HCL 100 MG TABLET (FP) PO SCH (22:14)
[2018-07-31] MEDS: traZODone HCL 100 MG TABLET (FP) PO SCH (22:14)
[2018-07-31] MEDS: ATORVASTATIN CA 10 MG TABLET (FP) PO SCH (22:14)
[2018-07-31] MEDS: MELATONIN 5 MG TABLETS PO PRN (22:15)
[2018-08-01] MEDS ORDERED: METHADONE HCL 10 MG TABLET ONE (04:33)
[2018-08-01] MEDS ORDERED: METHADONE HCL 40 MG DISPERSABLE TABLET ONE (04:34)
[2018-08-01] MEDS: METHADONE 40 MG, METHADONE 30 MG PO SCH (05:25)
[2018-08-01] MEDS: chlordiazePOXIDE HCL 25 MG CAPSULE PO SCH ×2 (05:25→10:03)
[2018-08-01] MEDS: METHOCARBAMOL 500 MG TABLET PO PRN ×3 (05:26→22:12)
[2018-08-01] MEDS: NICOTINE 21 MG/24 HOURS TOPICAL PATCH TD SCH (10:03)
[2018-08-01] MEDS: cloNIDine HCL 0.1 MG TABLET PO SCH ×2 (10:03→22:09)
[2018-08-01] MEDS: ESCITALOPRAM OXALATE 20 MG TABLET (FP) PO SCH (10:03)
[2018-08-01] MEDS: PRENATAL VITAMINS W/ FOLIC ACID TABLET (FP) PO SCH (10:03)
[2018-08-01] MEDS: IBUPROFEN 400 MG TABLET (FP) PO PRN ×2 (10:04→17:29)
[2018-08-01] MEDS: ARIPiprazole 5 MG TABLET (FP) PO SCH (10:06)
[2018-08-01] MEDS: HALOPERIDOL 5 MG TABLET (FP) PO SCH (10:53)
[2018-08-01 11:20] LABS: SGOT/AST 154 U/L (15-37); SGPT/ALT 174 U/L (13-61)
[2018-08-01] MEDS: hydrOXYzine PAMOATE 50 MG CAPSULE (FP) PO PRN ×2 (12:28→17:29)
[2018-08-01] MEDS: chlordiazePOXIDE HCL 25 MG CAPSULE PO PRN (12:28)
--- NOTE | 2018-08-01 12:29 | PN ---
S CIWA - CIWA Score Nausea/Vomitin-No Nausea/No Vomiting Muscle Tremors: 2 Anxiety: 2 Agitation: 2 Paroxysmal Sweats: 3 Orientation: 0-Oriented Tacttile Disturbances: 0-None Auditory Disturbances: 0-None Visual Disturbances: 0-None Headache: 0-None Present CIWA-Ar Total Score: 9 S Progress Note (SOAP) Subjective: c/o sweats, interrupted sleep, and anxiety. Objective: 08/01/18 12:28 Vital Signs 08/01/18 08/01/18 06:00 09:13 Temperature 97.2 F L 99.3 F Pulse Rate 90 63 Respiratory 18 18 Rate Blood Pressure 123/83 134/67 Lab Results WBC 5.7 K/mm3 (4.0-10.0) 07/31/18 07:00 RBC 4.20 M/mm3 (3.60-5.2) 07/31/18 07:00 Hgb 13.6 GM/dL (10.7-15.3) 07/31/18 07:00 Hct 40.2 % (32.4-45.2) 07/31/18 07:00 MCV 95.9 fl (80-96) 07/31/18 07:00 MCHC 33.8 g/dl (32.0-36.0) 07/31/18 07:00 RDW 14.4 % (11.6-15.6) D 07/31/18 07:00 Plt Count 121 K/MM3 (134-434) L D 07/31/18 07:00 Sodium 138 mmol/L (136-145) 07/31/18 07:00 Potassium 3.7 mmol/L (3.5-5.1) 07/31/18 07:00 Chloride 104 mmol/L (98-107) 07/31/18 07:00 Carbon Dioxide 26 mmol/L (21-32) 07/31/18 07:00 Anion Gap 7 MMOL/L (8-16) L 07/31/18 07:00 BUN 6 mg/dL (7-18) L 07/31/18 07:00 Creatinine 0.5 mg/dL (0.55-1.3) L 07/31/18 07:00 Random Glucose 108 mg/dL (74-106) H 07/31/18 07:00 Calcium 8.9 mg/dL (8.5-10.1) 07/31/18 07:00 Labs noted. Assessment: 08/01/18 12:28 AOX3, in no acute distress. full rom, ambulating in the unit withdrawal symptoms. Plan: continue detox.
[2018-08-01] MEDS: chlordiazePOXIDE HCL 10 MG CAPSULE PO SCH ×2 (16:49→22:09)
[2018-08-01] MEDS ORDERED: chlordiazePOXIDE HCL 10 MG CAPSULE PO PRN (17:00)
[2018-08-01] MEDS: THIAMINE HCL 100 MG TABLET (FP) PO SCH (22:09)
[2018-08-01] MEDS: ATORVASTATIN CA 10 MG TABLET (FP) PO SCH (22:09)
[2018-08-01] MEDS: traZODone HCL 100 MG TABLET (FP) PO SCH (22:09)
[2018-08-02] MEDS ORDERED: METHADONE HCL 10 MG TABLET ONE (04:26)
[2018-08-02] MEDS ORDERED: METHADONE HCL 40 MG DISPERSABLE TABLET ONE (04:26)
[2018-08-02] MEDS: IBUPROFEN 400 MG TABLET (FP) PO PRN (05:28)
[2018-08-02] MEDS: METHADONE 40 MG, METHADONE 30 MG PO SCH (05:28)
[2018-08-02] MEDS: chlordiazePOXIDE HCL 10 MG CAPSULE PO SCH ×3 (05:29→17:08)
[2018-08-02] MEDS: METHOCARBAMOL 500 MG TABLET PO PRN ×2 (08:50→22:42)
[2018-08-02 09:32] LABS: PH,URINE 6.5 (5.0-8.0); URINE APPEARANCE CLEAR; URINE BILIRUBIN NEGATIVE (NEGATIVE); URINE COLOR YELLOW; URINE GLUCOSE (UA) NEGATIVE (NEGATIVE); URINE KETONE NEGATIVE (NEGATIVE); URINE LEUK ESTERASE NEGATIVE (NEGATIVE); URINE NITRITE NEGATIVE (NEGATIVE); URINE PROTEIN NEGATIVE (NEGATIVE); URINE UROBILINOGEN 0.2 mg/dL (0.2-1.0)
[2018-08-02 09:34] LABS: EPI CELLS 1.1 /HPF (0-5/HPF); URINE RBC 25.3 /hpf (0-4); URINE WBC 1.1 /hpf (0-5)
[2018-08-02 09:35] LABS: URINE BACTERIA 23.5 /hpf (NEGATIVE)
[2018-08-02] MEDS: PRENATAL VITAMINS W/ FOLIC ACID TABLET (FP) PO SCH (10:02)
[2018-08-02] MEDS: NICOTINE 21 MG/24 HOURS TOPICAL PATCH TD SCH (10:02)
[2018-08-02] MEDS: HALOPERIDOL 5 MG TABLET (FP) PO SCH (10:02)
[2018-08-02] MEDS: ESCITALOPRAM OXALATE 20 MG TABLET (FP) PO SCH (10:02)
[2018-08-02] MEDS: cloNIDine HCL 0.1 MG TABLET PO SCH ×2 (10:02→22:41)
[2018-08-02] MEDS: ARIPiprazole 5 MG TABLET (FP) PO SCH (10:03)
[2018-08-02 10:05] LABS: YEAST NOT PRESENT (NEGATIVE)
--- NOTE | 2018-08-02 11:04 | PN ---
[facility] Progress Note Note: Patient reports sleeping poorly despite taking Trazadone 100 mg po HS. Told press writer that she used to take 200 mg/hs and requests to be ordered that dose
[2018-08-02] MEDS: LIDOCAINE 5% TOPICAL PATCH TP SCH (11:26)
[2018-08-02] MEDS ORDERED: IBUPROFEN 600 MG TABLET (FP) PO PRN (12:00)
[2018-08-02] MEDS: hydrOXYzine PAMOATE 50 MG CAPSULE (FP) PO PRN ×2 (12:22→22:43)
--- NOTE | 2018-08-02 16:47 | PN ---
S CIWA - CIWA Score Nausea/Vomitin-No Nausea/No Vomiting Muscle Tremors: 2 Anxiety: 2 Agitation: 2 Paroxysmal Sweats: 2 Orientation: 0-Oriented Tacttile Disturbances: 0-None Auditory Disturbances: 0-None Visual Disturbances: 0-None Headache: 0-None Present CIWA-Ar Total Score: 8 BHS Progress Note (SOAP) Subjective: Tremor, nausea, body ache, back pain. Patient requesting lidocaine patch for back pain and for motrin to be increased. Objective: 08/02/18 16:43 Last Vital Signs Temp Pulse Resp BP Pulse Ox 97.1 F L 77 18 137/79 08/02/18 14:35 08/02/18 14:35 08/02/18 14:35 08/02/18 14:35 Laboratory Tests 07/30/18 07/31/18 07/31/18 14:32 07:00 07:00 WBC 5.7 RBC 4.20 Hgb 13.6 Hct 40.2 MCV 95.9 MCH 32.4 D MCHC 33.8 RDW 14.4 D Plt Count 121 L D MPV 10.7 D Sodium 138 Potassium 3.7 Chloride 104 Carbon Dioxide 26 Anion Gap 7 L BUN 6 L Creatinine 0.5 L Est GFR (CKD-EPI)AfAm 155.90 Est GFR (CKD-EPI)NonAf 134.52 Random Glucose 108 H Calcium 8.9 Total Bilirubin 0.5 AST 149 H ALT 163 H Alkaline Phosphatase 175 H Total Protein 7.6 Albumin 3.6 Urine Color Urine Appearance Urine pH Ur Specific [place] Urine Protein Urine Glucose (UA) Urine Ketones Urine Blood Urine Nitrite Urine Bilirubin Urine Urobilinogen Ur Leukocyte Esterase Urine WBC (Auto) Urine RBC (Auto) Urine Casts (Auto) U Epithel Cells (Auto) Urine Bacteria (Auto) Urine Yeast (Auto) POC Urine HCG, Qual Negative RPR Titer 07/31/18 08/01/18 08/01/18 07:00 07:35 08:56 WBC RBC Hgb Hct MCV MCH MCHC RDW Plt Count MPV Sodium Potassium Chloride Carbon Dioxide Anion Gap BUN Creatinine Est GFR (CKD-EPI)AfAm Est GFR (CKD-EPI)NonAf Random Glucose Calcium Total Bilirubin AST 154 H ALT 174 H Alkaline Phosphatase Total Protein Albumin Urine Color Yellow Urine Appearance Clear Urine pH 6.5 Ur Specific [place] 1.004 L Urine Protein Negative Urine Glucose (UA) Negative Urine Ketones Negative Urine Blood 3+ H Urine Nitrite Negative Urine Bilirubin Negative Urine Urobilinogen 0.2 Ur Leukocyte Esterase Negative Urine WBC (Auto) 1.1 Urine RBC (Auto) 25.3 Urine Casts (Auto) 0.00 U Epithel Cells (Auto) 1.1 Urine Bacteria (Auto) 23.5 Urine Yeast (Auto) Not present POC Urine HCG, Qual RPR Titer Nonreactive Labs reviewed: abnormal UA, elevated LFTs (AST, ALT, Alk phos) Assessment: 08/02/18 16:50 Withdrawal symptoms Noted with abnormal UA and elevated LFTs Plan: Continue detox Abnormal UA: encouraged PO water hydration, repeat UA Elevated LFTs: repeat AST, ALT, Alk phos; send HCV Ab AND HCV PCR
[2018-08-02] MEDS ORDERED: LIDOCAINE PATCH REMOVAL MC SCH (22:00)
[2018-08-02] MEDS ORDERED: traZODone HCL 100 MG TABLET (FP) PO SCH (22:00)
[2018-08-02] MEDS: ATORVASTATIN CA 10 MG TABLET (FP) PO SCH (22:41)
[2018-08-02] MEDS: THIAMINE HCL 100 MG TABLET (FP) PO SCH (23:04)
[2018-08-03] MEDS ORDERED: METHADONE HCL 40 MG DISPERSABLE TABLET ONE (04:29)
[2018-08-03] MEDS ORDERED: METHADONE HCL 10 MG TABLET ONE (04:29)
[2018-08-03] MEDS: chlordiazePOXIDE HCL 10 MG CAPSULE PO SCH (06:00)
[2018-08-03] MEDS: METHADONE 40 MG, METHADONE 30 MG PO SCH (06:00)
[2018-08-03 09:19] VITALS: BP 133/93; PULSE 105; TEMP 97.2
--- NOTE | 2018-08-03 09:31 | DS ---
[facility] Detox Discharge Summary Admission Date: 07/30/18 Discharge Date: 08/03/18 - History Present History: Alcohol Dependence, Cocaine Dependence, Opioid Dependence - Physical Exam Results Vital Signs: Vital Signs Temperature 97.2 F L 08/03/18 09:18 Pulse Rate 105 H 08/03/18 09:18 Respiratory Rate 18 08/03/18 09:18 Blood Pressure 133/93 08/03/18 09:18 O2 Sat by Pulse Oximetry (%) - Treatment Hospital Course: Detox Protocol Followed, Detoxed Safely, Responded well, Discharged Condition Good, Rehab Referral Accepted - Medication Discharge Medications: Ambulatory Orders hydrOXYzine HCL [Atarax -] 50 mg PO Q6H PRN #90 tablet 01/22/17 Acetaminophen 650 mg PO Q6H PRN 07/30/18 Aripiprazole 5 mg PO DAILY 07/30/18 Clonidine HCl 0.1 mg PO BID 07/30/18 Escitalopram Oxalate [Lexapro -] 20 mg PO DAILY 07/30/18 Haloperidol [Haldol -] 5 mg PO DAILY 07/30/18 Simvastatin 10 mg PO DAILY 07/30/18 traZODone HCL [Trazodone HCl] 200 mg PO HS 07/30/18 - Diagnosis (1) Alcohol dependence with uncomplicated withdrawal Current Visit: Yes Status: Chronic (2) HTN (hypertension) Current Visit: Yes Status: Chronic Qualifiers: Hypertension type: essential hypertension Qualified Code(s): I10 - Essential (primary) hypertension (3) Substance induced mood disorder Current Visit: Yes Status: Acute (4) Substance-induced sleep disorder Current Visit: Yes Status: Acute (5) HLD (hyperlipidemia) Current Visit: Yes Status: Chronic (6) History of seizures Current Visit: Yes Status: Chronic (7) Nicotine dependence Current Visit: Yes Status: Chronic Qualifiers: Nicotine product type: cigarettes Substance use status: uncomplicated Qualified Code(s): F17.210 - Nicotine dependence, cigarettes, uncomplicated (8) PTSD (post-traumatic stress disorder) Current Visit: Yes Status: Chronic (9) Cocaine dependence, uncomplicated Current Visit: Yes Status: Chronic (10) Insomnia Current Visit: No Status: Acute (11) Opioid dependence, uncomplicated Current Visit: Yes Status: Chronic (12) Sedative, hypnotic or anxiolytic abuse with sedative, hypnotic or anxiolytic-induced anxiety disorder Current Visit: Yes Status: Chronic (13) Acid reflux Current Visit: Yes Status: Chronic Qualifiers: Esophagitis presence: esophagitis presence not specified Qualified Code(s) : K21.9 - Gastro-esophageal reflux disease without esophagitis (14) Anxiety Current Visit: No Status: Chronic (15) Crack cocaine use Current Visit: Yes Status: Chronic (16) History of bipolar disorder Current Visit: No Status: Chronic (17) History of depression Current Visit: No Status: Chronic (18) History of schizoaffective disorder Current Visit: Yes Status: Chronic - AMA Did Patient Leave Against Medical Advice: No (referred to [facility])
--- NOTE | 2018-08-03 09:47 | PN ---
[facility] Progress Note Note: Patient is scheduled for discharge today. Scripts for 30 days supply of medications(Lexapro 20 mg/day, Abilify 5 mg/day, Haldol 5 mg/day, Trazadone 200 mg/hs) are electronically transmitted to [facility] [place] [address]
[2018-08-03] MEDS: HALOPERIDOL 5 MG TABLET (FP) PO SCH (10:01)
[2018-08-03] MEDS: LIDOCAINE 5% TOPICAL PATCH TP SCH (10:01)
[2018-08-03] MEDS: ARIPiprazole 5 MG TABLET (FP) PO SCH (10:01)
[2018-08-03] MEDS: PRENATAL VITAMINS W/ FOLIC ACID TABLET (FP) PO SCH (10:01)
[2018-08-03] MEDS: ESCITALOPRAM OXALATE 20 MG TABLET (FP) PO SCH (10:01)
[2018-08-03] MEDS: NICOTINE 21 MG/24 HOURS TOPICAL PATCH TD SCH (10:02)
[2018-08-03] MEDS: cloNIDine HCL 0.1 MG TABLET PO SCH (10:02)
[2018-08-03] MEDS: hydrOXYzine PAMOATE 50 MG CAPSULE (FP) PO PRN (10:03)
== END 2018-08-03 10:07 | disposition home or self-care (01) | DRG 773 ==
LOC: YASAS 11:03 → Y6N 15:36
PROVIDERS: ADMIT Surgery; ATTEND Surgery
PROC: HZ2ZZZZ Detoxification Services for Substance Abuse Treatment (ICD-10-PCS; principal; 2018-07-30)
DX: F10.230 Alcohol dependence with withdrawal, uncomplicated (principal); F11.23 Opioid dependence with withdrawal; F14.20 Cocaine dependence, uncomplicated; F17.210 Nicotine dependence, cigarettes, uncomplicated; F43.10 Post-traumatic stress disorder, unspecified; F19.24 Other psychoactive substance dependence with psychoactive substance-induced mood disorder; F19.282 Other psychoactive substance dependence with psychoactive substance-induced sleep disorder; F25.9 Schizoaffective disorder, unspecified; F31.9 Bipolar disorder, unspecified; F41.9 Anxiety disorder, unspecified; G47.00 Insomnia, unspecified; I10 Essential (primary) hypertension; E78.5 Hyperlipidemia, unspecified; D64.9 Anemia, unspecified; R82.90 Unspecified abnormal findings in urine; R94.5 Abnormal results of liver function studies; Z91.5 Personal history of self-harm; Z86.69 Personal history of other diseases of the nervous system and sense organs
CPT/HCPCS: 36415; 80053; 81003; 81025; 84450; 84460; 85027; 86593; 93005; 93010; J0735

== ENCOUNTER 2019-01-10 10:22 | Inpatient (IN) | payer OTHER ==
[2019-01-10 12:14] VITALS: BMI 33.0
--- NOTE | 2019-01-10 15:28 | HP ---
COWS - Scale Resting Pulse: 2= [place] 101-120 Sweatin= Chills/Flushing Restless Observation: 1= Difficult to Sit Still Pupil Size: 1= Pupils >than Normal Bone or Joint Aches: 2= Severe Diffuse Aches Runny Nose/ Eye Tearin= Runny Nose/Eyes GI Upset > 30mins: 3= Vomiting/Diarrhea Tremor Observation: 2= Slight Tremor Visible Yawning Observation: 2= >3x During Session Anxiety or Irritability: 2=Irritable/Anxious Goose Flesh Skin: 0=Smooth Skin COWS Score: 18 CIWA Score Nausea/Vomitin Muscle Tremors: 3 Anxiety: 3 Agitation: 3 Paroxysmal Sweats: 1-Minimal Palms Moist Orientation: 0-Oriented Tacttile Disturbances: 1-Very Mild Itch/Numbness Auditory Disturbances: 0-None Visual Disturbances: 0-None Headache: 2-Mild CIWA-Ar Total Score: 15 - Admission Criteria OASAS Guidelines: Admission for Medically Managed Detox: Requires at least one of the followin. CIWA greater than 12 2. Seizures within the past 24 hours 3. Delirium tremens within the past 24 hours 4. Hallucinations within the past 24 hours 5. Acute intervention needed for co occurring medical disorder 6. Acute intervention needed for co occurring psychiatric disorder 7. Severe withdrawal that cannot be handled at a lower level of care (continued vomiting, continued diarrhea, abnormal vital signs) requiring intravenous medication and/or fluids 8. Admitting History and Physical - Past Medical History ...LMP: 07/30/18 - Smoking History Smoking history: Current every day smoker Have you smoked in the past 12 months: Yes Aproximately how many cigarettes per day: 40 - Alcohol/Substance Use Hx Alcohol Use: Yes Admission [facility] Chief Complaint: i need help to stop using heroin,alcohol and cocaine Allergies/Adverse Reactions: Allergies Allergy/AdvReac Type Severity Reaction Status Date / Time penicillin G Allergy Severe Difficulty Verified 01/10/19 12:08 Breathing apple Allergy Unknown Verified 01/10/19 12:08 lemon Allergy Unknown Verified 01/10/19 12:08 raspberry Allergy Unknown Verified 01/10/19 12:08 History of Present Illness: this 28 years old female with heroin,alcohol,cocaine dependence ,seeking detox, withdrawal symptom multiple admissions in detox,last 12/19 [facility] keep relapsing hypertension prediabetic hypercholesterolemia seizure last 2018 syncope schizophrenic,bipolar disorder longest sobriety 3 years unemployed homeless Exam Limitations: No Limitations - Ebola screening Have you traveled outside of the country in the last 21 days: No (N) Have you had contact with anyone from an Ebola affected area: No Do you have a fever: No - Review of Systems Constitutional: Chills, Loss of Appetite, Malaise, Night Sweats, Changes in sleep, Weakness EENT: reports: Tearing, Nose Congestion Respiratory: reports: No Symptoms reported Cardiac: reports: Palpitations GI: reports: Diarrhea, Nausea, Vomiting, Abdominal cramping : reports: No Symptoms Reported Musculoskeletal: reports: Back Pain, Joint Pain, Muscle Pain Integumentary: reports: Dryness Neuro: reports: Headache, Tremors Endocrine: reports: No Symptoms Reported Hematology: reports: No Symptoms Reported Psychiatric: reports: No Sypmtoms Reported, Judgement Intact, Mood/Affect Appropiate, Orientated x3, other Other Systems: Reviewed and Negative (bipolar sdisorder) Patient History - Patient Medical History Hx Anemia: Yes (Uncertain about type.) Hx Asthma: No Hx Chronic Obstructive Pulmonary Disease (COPD): No Hx Cancer: No Hx Cardiac Disorders: No Hx Congestive Heart Failure: No Hx Hypertension: No Hx Hypercholesterolemia: No Hx Pacemaker: No HX Cerebrovascular Accident: No Hx Seizures: Yes (Due to Withdrawal; Last Episode: 01/2018) Hx Dementia: No Hx Diabetes: No Hx Gastrointestinal Disorders: Yes (acid reflux) Hx Liver Disease: No Hx Genitourinary Disorders: No Hx Sexually Transmitted Disorders: No Hx Renal Disease (ESRD): No Hx Thyroid Disease: No Hx Human Immunodeficiency Virus (HIV): No (Negative History.last 12/19) Hx Hepatitis C: No (Negative History. ) Hx Depression: Yes (On meds.) Hx Suicide Attempt: Yes (cut left wrist in 11/2016; PATIENT DENIES CURRENT SI / HI.) Hx Bipolar Disorder: Yes (On meds.) Hx Schizophrenia: Yes (schizoaffective disorder; On meds.) Other Medical History: no suicidal,no homicidal - Patient Surgical History Past Surgical History: No Hx Neurologic Surgery: No Hx Cataract Extraction: No Hx Cardiac Surgery: No Hx Lung Surgery: No Hx Breast Surgery: No Hx Breast Biopsy: No Hx Abdominal Surgery: No Hx Appendectomy: No Hx Cholecystectomy: No Hx Genitourinary Surgery: No Hx Section: No Hx Orthopedic Surgery: No Anesthesia Reaction: No - PPD History Previous Implant?: Yes Documented Results: Negative w/proof Implanted On Prior [facility] Admission?: Yes Date: 08/01/18 Results: 0 mm PPD to be Administered?: No - Reproductive History Patient is a Female of Child Bearing Age (11 -55 yrs old): Yes Last Menstrual Period: 12/06/18 Patient : No - Smoking Cessation Smoking history: Current every day smoker Have you smoked in the past 12 months: Yes Aproximately how many cigarettes per day: 40 Cigars Per Day: 0 Hx Chewing Tobacco Use: No Initiated information on smoking cessation: Yes 'Breaking Loose' booklet given: 01/10/19 - Substance & Tx. History Hx Alcohol Use: Yes Hx Substance Use: Yes Substance Use Type: Alcohol, Cocaine, Heroin Hx Substance Use Treatment: Yes (12/19 [facility]) - Substances abused Alcohol Substance route: Oral Frequency: Daily Amount used: 1 liter of vodka Age of first use: 10 Date of last use: 01/10/19 Heroin Substance route: Injection Frequency: Daily Amount used: 1 - 1 1/2 bundle Age of first use: 27 Date of last use: 01/10/19 Crack Substance route: Smoking Frequency: Daily Amount used: $50 Age of first use: 22 Date of last use: 01/09/19 Admission Physical Exam S - Vital Signs Vital Signs: Vital Signs - 24 hr 01/10/19 01/10/19 12:11 12:33 Temperature 98.5 F 98.5 F Pulse Rate 107 H 107 H Respiratory 18 18 Rate Blood Pressure 124/65 124/65 - Physical General Appearance: Yes: Moderate Distress, Tremorous, Irritable, Sweating, Anxious HEENTM: Yes: Normal ENT Inspection, YOLANDA, Pharynx Normal Respiratory: Yes: Within Normal Limits, Lungs Clear, Normal Breath Sounds Neck: Yes: Within Normal Limits, Supple, Trachea in good position Breast: Yes: Breast Exam Deferred Cardiology: Yes: Tachycardia Abdominal: Yes: Within Normal Limits, Normal Bowel Sounds, Non Tender, Flat, Soft Genitourinary: Yes: Within Normal Limits Back: Yes: Muscle Spasm Musculoskeletal: Yes: Back pain, Muscle Pain Extremities: Yes: Normal Range of Motion, Tremors 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: Yes: Within Normal Limits (damage to righ knee ,wearing ke=nee brace), tester armature or fields II-XII NML intact, Fully Oriented, Alert, Motor Strength 5/5 Integumentary: Yes: Dry, Track Meredith Lymphatic: Yes: Other - Diagnostic (1) Opioid dependence with withdrawal Current Visit: Yes Status: Acute (2) Alcohol dependence with uncomplicated withdrawal Current Visit: No Status: Acute (3) Cocaine dependence, uncomplicated Current Visit: No Status: Acute (4) HLD (hyperlipidemia) Current Visit: No Status: Chronic (5) HTN (hypertension) Current Visit: No Status: Chronic Qualifiers: Hypertension type: essential hypertension Qualified Code(s): I10 - Essential (primary) hypertension (6) History of bipolar disorder Current Visit: No Status: Chronic (7) IVDU (intravenous drug user) Current Visit: Yes Status: Acute (8) History of seizures Current Visit: No Status: Resolved Comment: Due To Withdrawal. Cleared for Admission [facility] - Detox or Rehab [facility] Level of Care: Medically Managed Detox Regimen/Protocol: Methadone/Librium Breathalyzer - Breathalyzer Breathalyzer: 0.058 Urine Drug Screen - Test Device Lot number: [id number] Expiration date: 09/30/20 - Control Is test valid?: Yes - Results Drug screen NEGATIVE: No Urine drug screen results: ARANZA-Cocaine, FEN-Fentanyl, MOP-Opiates, BZO- Benzodiazepines, BUP-Suboxone Inpatient Rehab Admission - Rehab Decision to Admit Inpatient rehab admission?: No
[2019-01-10] MEDS ORDERED: chlordiazePOXIDE HCL 25 MG CAPSULE PO PRN (15:36)
[2019-01-10] MEDS ORDERED: BISMUTH SUBSALICYLATE 524 MG/30 ML UD PO PRN (15:36)
[2019-01-10] MEDS ORDERED: cloNIDine HCL 0.1 MG TABLET PO PRN (15:36)
[2019-01-10] MEDS ORDERED: MAG HYDROX/AL HYDROX/SIMETH 30 ML UNIT-DOSE CUP PO PRN (15:36)
[2019-01-10] MEDS ORDERED: MAGNESIUM CITRATE 300 ML BOTTLE PO PRN (15:36)
[2019-01-10] MEDS ORDERED: IBUPROFEN 400 MG TABLET (FP) PO PRN (15:36)
[2019-01-10] MEDS ORDERED: MAGNESIUM HYDROX 2400MG/30ML ORAL SUSPENSION 30 ML CUP PO PRN (15:36)
[2019-01-10] MEDS ORDERED: ACETAMINOPHEN 325 MG TABLET (FP) PO PRN (15:36)
[2019-01-10] MEDS ORDERED: METHADONE HCL 10 MG TABLET (FOR DETOX USE ONLY) PO ONE (16:15)
[2019-01-10] MEDS: chlordiazePOXIDE HCL 25 MG CAPSULE PO SCH ×3 (16:54→22:35)
[2019-01-10] MEDS: NICOTINE 21 MG/24 HOURS TOPICAL PATCH TD SCH (17:27)
[2019-01-10] MEDS: ATORVASTATIN CA 10 MG TABLET (FP) PO SCH (22:34)
[2019-01-10] MEDS: levETIRAcetam 500 MG TABLET (FP) PO SCH (22:34)
[2019-01-10] MEDS: THIAMINE HCL 100 MG TABLET (FP) PO SCH (22:35)
[2019-01-10] MEDS: MELATONIN 5 MG TABLETS PO PRN (22:36)
[2019-01-10] MEDS: METHOCARBAMOL 500 MG TABLET PO PRN (22:36)
[2019-01-10] MEDS: ACETAMINOPHEN 325 MG TABLET (FP) PO PRN (22:37)
[2019-01-11] MEDS ORDERED: chlordiazePOXIDE HCL 25 MG CAPSULE PO SCH (05:00)
[2019-01-11] MEDS: ACETAMINOPHEN 325 MG TABLET (FP) PO PRN ×2 (06:31→22:13)
[2019-01-11] MEDS: hydrOXYzine PAMOATE 25 MG CAPSULE (FP) PO PRN (06:33)
[2019-01-11] MEDS: chlordiazePOXIDE HCL 25 MG CAPSULE PO SCH ×4 (06:33→22:08)
[2019-01-11] MEDS ORDERED: METHADONE HCL 5 MG TABLET (FOR DETOX USE ONLY) ONE (09:16)
[2019-01-11] MEDS ORDERED: METHADONE HCL 10 MG TABLET (FOR DETOX USE ONLY) ONE (09:17)
[2019-01-11 09:44] LABS: HEMATOCRIT 40.4 % (32.4-45.2); HEMOGLOBIN 13.5 GM/dL (10.7-15.3); MCH 32.7 pg (25.7-33.7); MCHC 33.5 g/dl (32.0-36.0); MEAN CELL VOLUME 97.7 fl (80-96); MEAN PLT VOLUME 10.1 fl (7.5-11.1); PLATELET COUNT 198 K/MM3 (134-434); RBC 4.13 M/mm3 (3.60-5.2); RDW 14.1 % (11.6-15.6); WHITE BLOOD COUNT 8.8 K/mm3 (4.0-10.0)
[2019-01-11 09:56] LABS: PH,URINE 6.5 (5.0-8.0); URINE APPEARANCE CLOUDY; URINE BILIRUBIN NEGATIVE (NEGATIVE); URINE COLOR YELLOW; URINE GLUCOSE (UA) NEGATIVE (NEGATIVE); URINE KETONE NEGATIVE (NEGATIVE); URINE LEUK ESTERASE NEGATIVE (NEGATIVE); URINE NITRITE NEGATIVE (NEGATIVE); URINE PROTEIN NEGATIVE (NEGATIVE)
[2019-01-11] MEDS ORDERED: METHADONE (DETOX) 20 MG, METHADONE (DETOX) 5 MG PO ONE (10:00)
[2019-01-11 10:11] LABS: ALBUMIN 3.2 g/dl (3.4-5.0); BILIRUBIN,TOTAL 0.4 mg/dL (0.2-1); BLOOD UREA NITROGEN 7.8 mg/dL (7-18); CALCIUM 8.6 mg/dL (8.5-10.1); CREATININE 0.6 mg/dL (0.55-1.3); POTASSIUM 3.6 mmol/L (3.5-5.1)
[2019-01-11] MEDS: NICOTINE 21 MG/24 HOURS TOPICAL PATCH TD SCH (10:22)
[2019-01-11] MEDS: levETIRAcetam 500 MG TABLET (FP) PO SCH ×2 (10:22→22:08)
[2019-01-11] MEDS: PRENATAL VITAMINS W/ FOLIC ACID TABLET (FP) PO SCH (10:22)
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
[2019-01-11] MEDS: HALOPERIDOL 5 MG TABLET (FP) PO SCH (12:12)
[2019-01-11] MEDS: ESCITALOPRAM OXALATE 20 MG TABLET (FP) PO SCH (12:13)
[2019-01-11] MEDS: ARIPiprazole 5 MG TABLET (FP) PO SCH (12:25)
--- NOTE | 2019-01-11 12:29 | PN ---
[facility] CIWA - CIWA Score Nausea/Vomitin-No Nausea/No Vomiting Muscle Tremors: 3 Anxiety: 3 Agitation: 3 Paroxysmal Sweats: 2 Orientation: 0-Oriented Tacttile Disturbances: 0-None Auditory Disturbances: 0-None Visual Disturbances: 0-None Headache: 0-None Present CIWA-Ar Total Score: 11 S COWS - Scale Resting Pulse: 1= [place] 81-100 Sweatin=Flushed/Facial Moisture Restless Observation: 1= Difficult to Sit Still Pupil Size: 0= Normal to Room Light Bone or Joint Aches: 1= Mild Discomfort Runny Nose/ Eye Tearin= Runny Nose/Eyes GI Upset > 30mins: 0= None Tremor Observation of Outstretched Hands: 1= Tremor [place], Not Seen Yawning Observation: 1= 1-2x During Session Anxiety or Irritability: 2=Irritable/Anxious Goose Flesh Skin: 0=Smooth Skin COWS Score: 11 [facility] Progress Note (SOAP) Subjective: sweats shakes interrupted sleep nasal congestion body aches agitation Objective: 01/11/19 12:27 Vital Signs Temperature 97.9 F 01/11/19 09:50 Pulse Rate 93 H 01/11/19 09:50 Respiratory Rate 18 01/11/19 09:50 Blood Pressure 147/92 01/11/19 09:50 O2 Sat by Pulse Oximetry (%) Laboratory Tests 01/11/19 01/11/19 01/11/19 07:50 07:50 07:50 WBC 8.8 RBC 4.13 Hgb 13.5 Hct 40.4 MCV 97.7 H MCH 32.7 MCHC 33.5 RDW 14.1 Plt Count 198 D MPV 10.1 Sodium 136 Potassium 3.6 Chloride 104 Carbon Dioxide 25 Anion Gap 7 L BUN 7.8 Creatinine 0.6 Est GFR (CKD-EPI)AfAm 145.80 Est GFR (CKD-EPI)NonAf 125.80 Random Glucose 98 Calcium 8.6 Total Bilirubin 0.4 AST 18 ALT 35 Alkaline Phosphatase 90 Total Protein 7.0 Albumin 3.2 L Urine Color Urine Appearance Urine pH Ur Specific [place] Urine Protein Urine Glucose (UA) Urine Ketones Urine Blood Urine Nitrite Urine Bilirubin Urine Urobilinogen Ur Leukocyte Esterase RPR Titer HIV 1&2 Antibody Screen Negative HIV P24 Antigen Negative 01/11/19 01/11/19 07:50 07:50 WBC RBC Hgb Hct MCV MCH MCHC RDW Plt Count MPV Sodium Potassium Chloride Carbon Dioxide Anion Gap BUN Creatinine Est GFR (CKD-EPI)AfAm Est GFR (CKD-EPI)NonAf Random Glucose Calcium Total Bilirubin AST ALT Alkaline Phosphatase Total Protein Albumin Urine Color Yellow Urine Appearance Cloudy Urine pH 6.5 Ur Specific [place] 1.025 Urine Protein Negative Urine Glucose (UA) Negative Urine Ketones Negative Urine Blood Negative Urine Nitrite Negative Urine Bilirubin Negative Urine Urobilinogen 1.0 Ur Leukocyte Esterase Negative RPR Titer Nonreactive HIV 1&2 Antibody Screen HIV P24 Antigen labs noted aaox3 ambulating no acute distress Assessment: 01/11/19 12:29 withdrawal sx Plan: continue detox increase fluids actifed prn
[2019-01-11] MEDS ORDERED: P-EPHED 60MG/TRIPROLIDI 2.5MG TABLET PO PRN (12:38)
[2019-01-11] MEDS: NICOTINE POLACRILEX 2 MG GUM BUC PRN ×2 (12:50→18:42)
[2019-01-11] MEDS: chlordiazePOXIDE HCL 25 MG CAPSULE PO PRN ×2 (13:15→20:04)
[2019-01-11] MEDS: METHOCARBAMOL 500 MG TABLET PO PRN ×2 (14:47→22:14)
[2019-01-11] MEDS: guaiFENesin 200 MG/10 ML 10 ML UNIT-DOSE CUPS PO PRN (15:23)
[2019-01-11] MEDS: MENTHOL/PHENOL 1 EACH UD MM PRN (18:42)
[2019-01-11] MEDS ORDERED: traZODone HCL 100 MG TABLET (FP) PO SCH (22:00)
[2019-01-11] MEDS: ATORVASTATIN CA 10 MG TABLET (FP) PO SCH (22:08)
[2019-01-11] MEDS: THIAMINE HCL 100 MG TABLET (FP) PO SCH (22:08)
[2019-01-11] MEDS: MELATONIN 5 MG TABLETS PO PRN (22:16)
[2019-01-12] MEDS ORDERED: chlordiazePOXIDE HCL 10 MG CAPSULE PO PRN
[2019-01-12] MEDS ORDERED: chlordiazePOXIDE HCL 10 MG CAPSULE PO SCH (05:00)
[2019-01-12] MEDS: chlordiazePOXIDE HCL 25 MG CAPSULE PO SCH ×4 (05:21→22:26)
[2019-01-12] MEDS ORDERED: METHADONE HCL 10 MG TABLET (FOR DETOX USE ONLY) PO ONE (10:00)
[2019-01-12] MEDS: levETIRAcetam 500 MG TABLET (FP) PO SCH ×2 (10:11→22:26)
[2019-01-12] MEDS: ESCITALOPRAM OXALATE 20 MG TABLET (FP) PO SCH (10:11)
[2019-01-12] MEDS: HALOPERIDOL 5 MG TABLET (FP) PO SCH (10:11)
[2019-01-12] MEDS: ARIPiprazole 5 MG TABLET (FP) PO SCH (10:11)
[2019-01-12] MEDS: NICOTINE 21 MG/24 HOURS TOPICAL PATCH TD SCH (10:11)
[2019-01-12] MEDS: PRENATAL VITAMINS W/ FOLIC ACID TABLET (FP) PO SCH (10:12)
[2019-01-12] MEDS: ACETAMINOPHEN 325 MG TABLET (FP) PO PRN ×2 (10:15→17:34)
[2019-01-12] MEDS: METHOCARBAMOL 500 MG TABLET PO PRN ×3 (10:17→22:28)
[2019-01-12] MEDS: guaiFENesin 200 MG/10 ML 10 ML UNIT-DOSE CUPS PO PRN ×2 (10:18→17:49)
[2019-01-12] MEDS ORDERED: GABAPENTIN 100 MG CAPSULE (FP) PO ONE (11:11)
[2019-01-12] MEDS: GABAPENTIN 100 MG CAPSULE (FP) PO SCH ×2 (13:04→22:26)
--- NOTE | 2019-01-12 13:39 | PN ---
[facility] Progress Note Note: Patient reports sleeping poorly despite taking Trazadone 100 mg/hs. She reminded designer writer that she was on Trazadone 200 mg prior to admission. Will order Trazadone 200 mg/hs
[2019-01-12] MEDS: hydrOXYzine PAMOATE 25 MG CAPSULE (FP) PO PRN ×2 (14:20→22:28)
--- NOTE | 2019-01-12 14:20 | PN ---
[facility] CIWA - CIWA Score Nausea/Vomitin-No Nausea/No Vomiting Muscle Tremors: 3 Anxiety: 2 Agitation: 3 Paroxysmal Sweats: 2 Orientation: 0-Oriented Tacttile Disturbances: 0-None Auditory Disturbances: 0-None Visual Disturbances: 0-None Headache: 0-None Present CIWA-Ar Total Score: 10 [facility] COWS - Scale Resting Pulse: 1= [place] 81-100 Sweatin= Chills/Flushing Restless Observation: 1= Difficult to Sit Still Pupil Size: 0= Normal to Room Light Bone or Joint Aches: 2= Severe Diffuse Aches Runny Nose/ Eye Tearin= Nasal Congestion GI Upset > 30mins: 0= None Tremor Observation of Outstretched Hands: 1= Tremor [place], Not Seen Yawning Observation: 1= 1-2x During Session Anxiety or Irritability: 1=Feels Anxious/Irritable Goose Flesh Skin: 0=Smooth Skin COWS Score: 9 [facility] Progress Note (SOAP) Subjective: sweats shakes interrupted sleep nerve pain Objective: 01/12/19 14:20 Vital Signs Temperature 96.9 F L 01/12/19 13:15 Pulse Rate 96 H 01/12/19 13:15 Respiratory Rate 18 01/12/19 13:15 Blood Pressure 130/77 01/12/19 13:15 O2 Sat by Pulse Oximetry (%) Laboratory Tests 01/10/19 01/11/19 01/11/19 12:54 07:50 07:50 WBC 8.8 RBC 4.13 Hgb 13.5 Hct 40.4 MCV 97.7 H MCH 32.7 MCHC 33.5 RDW 14.1 Plt Count 198 D MPV 10.1 Sodium Potassium Chloride Carbon Dioxide Anion Gap BUN Creatinine Est GFR (CKD-EPI)AfAm Est GFR (CKD-EPI)NonAf Random Glucose Calcium Total Bilirubin AST ALT Alkaline Phosphatase Total Protein Albumin Urine Color Urine Appearance Urine pH Ur Specific [place] Urine Protein Urine Glucose (UA) Urine Ketones Urine Blood Urine Nitrite Urine Bilirubin Urine Urobilinogen Ur Leukocyte Esterase POC Urine HCG, Qual Negative RPR Titer HIV 1&2 Antibody Screen Negative HIV P24 Antigen Negative 01/11/19 01/11/19 01/11/19 07:50 07:50 07:50 WBC RBC Hgb Hct MCV MCH MCHC RDW Plt Count MPV Sodium 136 Potassium 3.6 Chloride 104 Carbon Dioxide 25 Anion Gap 7 L BUN 7.8 Creatinine 0.6 Est GFR (CKD-EPI)AfAm 145.80 Est GFR (CKD-EPI)NonAf 125.80 Random Glucose 98 Calcium 8.6 Total Bilirubin 0.4 AST 18 ALT 35 Alkaline Phosphatase 90 Total Protein 7.0 Albumin 3.2 L Urine Color Yellow Urine Appearance Cloudy Urine pH 6.5 Ur Specific [place] 1.025 Urine Protein Negative Urine Glucose (UA) Negative Urine Ketones Negative Urine Blood Negative Urine Nitrite Negative Urine Bilirubin Negative Urine Urobilinogen 1.0 Ur Leukocyte Esterase Negative POC Urine HCG, Qual RPR Titer Nonreactive HIV 1&2 Antibody Screen HIV P24 Antigen labs noted aaox3 ambulating no acute distress Assessment: 01/12/19 14:20 withdrawal sx Plan: continue detox increase fluids gabapentin 100mg tid
[2019-01-12] MEDS: MENTHOL/PHENOL 1 EACH UD MM PRN (17:50)
[2019-01-12] MEDS: chlordiazePOXIDE HCL 25 MG CAPSULE PO PRN (19:47)
[2019-01-12] MEDS: THIAMINE HCL 100 MG TABLET (FP) PO SCH (22:26)
[2019-01-12] MEDS: traZODone HCL 100 MG TABLET (FP) PO SCH (22:26)
[2019-01-12] MEDS: ATORVASTATIN CA 10 MG TABLET (FP) PO SCH (22:26)
[2019-01-13] MEDS ORDERED: chlordiazePOXIDE HCL 10 MG CAPSULE PO PRN
[2019-01-13] MEDS ORDERED: chlordiazePOXIDE HCL 10 MG CAPSULE PO SCH (05:00)
[2019-01-13] MEDS: GABAPENTIN 100 MG CAPSULE (FP) PO SCH ×3 (06:38→22:22)
[2019-01-13] MEDS: chlordiazePOXIDE HCL 10 MG CAPSULE PO SCH ×4 (06:39→22:22)
[2019-01-13] MEDS ORDERED: GABAPENTIN 100 MG CAPSULE (FP) PO ONE (09:11)
[2019-01-13] MEDS ORDERED: METHADONE HCL 5 MG TABLET (FOR DETOX USE ONLY) ONE (09:23)
[2019-01-13] MEDS ORDERED: METHADONE HCL 10 MG TABLET (FOR DETOX USE ONLY) ONE (09:24)
--- NOTE | 2019-01-13 09:35 | PN ---
[facility] CIWA - CIWA Score Nausea/Vomitin-No Nausea/No Vomiting Muscle Tremors: 2 Anxiety: 2 Agitation: 2 Paroxysmal Sweats: 2 Orientation: 0-Oriented Tacttile Disturbances: 0-None Auditory Disturbances: 0-None Visual Disturbances: 0-None Headache: 0-None Present CIWA-Ar Total Score: 8 [facility] COWS - Scale Resting Pulse: 0= [place] 80 or Below Sweatin= Chills/Flushing Restless Observation: 1= Difficult to Sit Still Pupil Size: 0= Normal to Room Light Bone or Joint Aches: 1= Mild Discomfort Runny Nose/ Eye Tearin= None GI Upset > 30mins: 0= None Tremor Observation of Outstretched Hands: 1= Tremor [place], Not Seen Yawning Observation: 1= 1-2x During Session Anxiety or Irritability: 1=Feels Anxious/Irritable Goose Flesh Skin: 3=[place] COWS Score: 9 S Progress Note (SOAP) Subjective: chronic leg pain pins and needles sweats interrupted sleep Objective: 01/13/19 09:31 Vital Signs Temperature 97.9 F 01/13/19 09:20 Pulse Rate 83 01/13/19 09:20 Respiratory Rate 18 01/13/19 09:20 Blood Pressure 115/66 01/13/19 09:20 O2 Sat by Pulse Oximetry (%) Laboratory Tests 01/10/19 01/11/19 01/11/19 12:54 07:50 07:50 WBC 8.8 RBC 4.13 Hgb 13.5 Hct 40.4 MCV 97.7 H MCH 32.7 MCHC 33.5 RDW 14.1 Plt Count 198 D MPV 10.1 Sodium Potassium Chloride Carbon Dioxide Anion Gap BUN Creatinine Est GFR (CKD-EPI)AfAm Est GFR (CKD-EPI)NonAf Random Glucose Calcium Total Bilirubin AST ALT Alkaline Phosphatase Total Protein Albumin Urine Color Urine Appearance Urine pH Ur Specific [place] Urine Protein Urine Glucose (UA) Urine Ketones Urine Blood Urine Nitrite Urine Bilirubin Urine Urobilinogen Ur Leukocyte Esterase POC Urine HCG, Qual Negative RPR Titer HIV 1&2 Antibody Screen Negative HIV P24 Antigen Negative 01/11/19 01/11/19 01/11/19 07:50 07:50 07:50 WBC RBC Hgb Hct MCV MCH MCHC RDW Plt Count MPV Sodium 136 Potassium 3.6 Chloride 104 Carbon Dioxide 25 Anion Gap 7 L BUN 7.8 Creatinine 0.6 Est GFR (CKD-EPI)AfAm 145.80 Est GFR (CKD-EPI)NonAf 125.80 Random Glucose 98 Calcium 8.6 Total Bilirubin 0.4 AST 18 ALT 35 Alkaline Phosphatase 90 Total Protein 7.0 Albumin 3.2 L Urine Color Yellow Urine Appearance Cloudy Urine pH 6.5 Ur Specific [place] 1.025 Urine Protein Negative Urine Glucose (UA) Negative Urine Ketones Negative Urine Blood Negative Urine Nitrite Negative Urine Bilirubin Negative Urine Urobilinogen 1.0 Ur Leukocyte Esterase Negative POC Urine HCG, Qual RPR Titer Nonreactive HIV 1&2 Antibody Screen HIV P24 Antigen labs noted aaox3 ambulating no acute distress Assessment: 01/13/19 12:24 withdrawals Plan: continue detox increase fluids gabapentin 200mg tid ordered
[2019-01-13] MEDS ORDERED: METHADONE (DETOX) 10 MG, METHADONE (DETOX) 5 MG PO ONE (10:00)
[2019-01-13] MEDS: HALOPERIDOL 5 MG TABLET (FP) PO SCH (10:25)
[2019-01-13] MEDS: NICOTINE 21 MG/24 HOURS TOPICAL PATCH TD SCH (10:25)
[2019-01-13] MEDS: ESCITALOPRAM OXALATE 20 MG TABLET (FP) PO SCH (10:25)
[2019-01-13] MEDS: PRENATAL VITAMINS W/ FOLIC ACID TABLET (FP) PO SCH (10:25)
[2019-01-13] MEDS: levETIRAcetam 500 MG TABLET (FP) PO SCH ×2 (10:25→22:22)
[2019-01-13] MEDS: ARIPiprazole 5 MG TABLET (FP) PO SCH (10:25)
[2019-01-13] MEDS: NICOTINE POLACRILEX 2 MG GUM BUC PRN ×3 (10:29→18:04)
[2019-01-13] MEDS: guaiFENesin 200 MG/10 ML 10 ML UNIT-DOSE CUPS PO PRN ×2 (10:49→20:03)
[2019-01-13] MEDS: ACETAMINOPHEN 325 MG TABLET (FP) PO PRN ×2 (12:32→20:04)
[2019-01-13] MEDS: hydrOXYzine PAMOATE 25 MG CAPSULE (FP) PO PRN ×2 (14:40→22:25)
[2019-01-13] MEDS: METHOCARBAMOL 500 MG TABLET PO PRN (18:04)
[2019-01-13] MEDS: MENTHOL/PHENOL 1 EACH UD MM PRN (20:04)
[2019-01-13] MEDS: ATORVASTATIN CA 10 MG TABLET (FP) PO SCH (22:22)
[2019-01-13] MEDS: traZODone HCL 100 MG TABLET (FP) PO SCH (22:22)
[2019-01-13] MEDS: THIAMINE HCL 100 MG TABLET (FP) PO SCH (22:23)
[2019-01-14] MEDS ORDERED: chlordiazePOXIDE HCL 10 MG CAPSULE PO ONE (05:00)
[2019-01-14] MEDS: chlordiazePOXIDE HCL 10 MG CAPSULE PO SCH ×2 (05:26→18:07)
[2019-01-14] MEDS: GABAPENTIN 100 MG CAPSULE (FP) PO SCH ×3 (05:27→22:20)
[2019-01-14] MEDS ORDERED: METHADONE HCL 10 MG TABLET (FOR DETOX USE ONLY) PO ONE (10:00)
[2019-01-14] MEDS: ARIPiprazole 5 MG TABLET (FP) PO SCH (10:08)
[2019-01-14] MEDS: HALOPERIDOL 5 MG TABLET (FP) PO SCH (10:08)
[2019-01-14] MEDS: levETIRAcetam 500 MG TABLET (FP) PO SCH ×2 (10:08→22:21)
[2019-01-14] MEDS: ESCITALOPRAM OXALATE 20 MG TABLET (FP) PO SCH (10:08)
[2019-01-14] MEDS: PRENATAL VITAMINS W/ FOLIC ACID TABLET (FP) PO SCH (10:08)
[2019-01-14] MEDS: NICOTINE POLACRILEX 2 MG GUM BUC PRN ×2 (10:09→13:43)
[2019-01-14] MEDS: NICOTINE 21 MG/24 HOURS TOPICAL PATCH TD SCH (10:09)
[2019-01-14] MEDS: METHOCARBAMOL 500 MG TABLET PO PRN ×2 (10:10→18:07)
[2019-01-14] MEDS: ACETAMINOPHEN 325 MG TABLET (FP) PO PRN ×2 (10:11→18:08)
--- NOTE | 2019-01-14 11:47 | PN ---
[facility] CIWA - CIWA Score Nausea/Vomitin-No Nausea/No Vomiting Muscle Tremors: 2 Anxiety: 1-Mildly Anxious Agitation: 1-Slight > Activity Paroxysmal Sweats: No Perspiration Orientation: 0-Oriented Tacttile Disturbances: 0-None Auditory Disturbances: 0-None Visual Disturbances: 0-None Headache: 0-None Present CIWA-Ar Total Score: 4 [facility] COWS - Scale Resting Pulse: 1= [place] 81-100 Sweatin= Chills/Flushing Restless Observation: 1= Difficult to Sit Still Pupil Size: 0= Normal to Room Light Bone or Joint Aches: 1= Mild Discomfort Runny Nose/ Eye Tearin= None GI Upset > 30mins: 0= None Tremor Observation of Outstretched Hands: 0= None Yawning Observation: 0= None Anxiety or Irritability: 0= None Goose Flesh Skin: 0=Smooth Skin COWS Score: 4 [facility] Progress Note (SOAP) Subjective: achy bones Objective: 01/14/19 11:47 Vital Signs Temperature 98.1 F 01/14/19 09:52 Pulse Rate 90 01/14/19 09:52 Respiratory Rate 18 01/14/19 09:52 Blood Pressure 120/60 01/14/19 09:52 O2 Sat by Pulse Oximetry (%) aaox3 ambulating no acute distress Assessment: 01/14/19 11:47 withdrawal sx Plan: continue detox d/c in am
[2019-01-14] MEDS: hydrOXYzine PAMOATE 25 MG CAPSULE (FP) PO PRN (12:39)
[2019-01-14 17:44] VITALS: TEMP 97.9
[2019-01-14] MEDS: ATORVASTATIN CA 10 MG TABLET (FP) PO SCH (22:20)
[2019-01-14] MEDS: THIAMINE HCL 100 MG TABLET (FP) PO SCH (22:20)
[2019-01-14] MEDS: traZODone HCL 100 MG TABLET (FP) PO SCH (22:21)
[2019-01-15] MEDS ORDERED: chlordiazePOXIDE HCL 10 MG CAPSULE PO ONE (05:00)
[2019-01-15] MEDS ORDERED: METHADONE HCL 5 MG TABLET (FOR DETOX USE ONLY) PO ONE (06:00)
[2019-01-15] MEDS: GABAPENTIN 100 MG CAPSULE (FP) PO SCH (06:40)
[2019-01-15 07:22] VITALS: BP 127/76; PULSE 92
--- NOTE | 2019-01-15 08:32 | DS ---
[facility] Detox Discharge Summary Admission Date: 01/10/19 Discharge Date: 01/15/19 - History Present History: Alcohol Dependence, Cocaine Dependence, Opioid Dependence - Physical Exam Results Vital Signs: Vital Signs Temperature 97.9 F 01/15/19 07:22 Pulse Rate 92 H 01/15/19 07:22 Respiratory Rate 20 01/15/19 07:22 Blood Pressure 127/76 01/15/19 07:22 O2 Sat by Pulse Oximetry (%) - Treatment Hospital Course: Detox Protocol Followed, Detoxed Safely, Responded well, Discharged Condition Good - Medication Discharge Medications: Ambulatory Orders hydrOXYzine HCL [Atarax -] 50 mg PO Q6H PRN #90 tablet 01/22/17 Acetaminophen 650 mg PO Q6H PRN 07/30/18 Clonidine HCl 0.1 mg PO BID 07/30/18 Aripiprazole [Abilify -] 5 mg PO DAILY #30 tablet 08/03/18 Escitalopram Oxalate [Lexapro -] 20 mg PO DAILY #30 tablet 08/03/18 Haloperidol [Haldol -] 5 mg PO DAILY #30 tablet 08/03/18 traZODone HCL [Desyrel -] 200 mg PO HS #60 tablet 08/03/18 Simvastatin 10 mg PO HS 01/10/19 levETIRAcetam [Keppra -] 500 mg PO BID 01/10/19 - Diagnosis (1) Opioid dependence with withdrawal Current Visit: Yes Status: Chronic (2) Schizoaffective disorder Current Visit: Yes Status: Chronic (3) Alcohol dependence with uncomplicated withdrawal Current Visit: No Status: Chronic (4) Cocaine dependence, uncomplicated Current Visit: No Status: Chronic (5) History of bipolar disorder Current Visit: No Status: Chronic - AMA Did Patient Leave Against Medical Advice: No
== END 2019-01-15 09:24 | disposition home or self-care (01) | DRG 773 ==
LOC: YASAS 10:22 → Y6N 15:54
PROVIDERS: ADMIT Allergy & Immunology; ATTEND Allergy & Immunology
PROC: HZ2ZZZZ Detoxification Services for Substance Abuse Treatment (ICD-10-PCS; principal; 2019-01-10)
DX: F10.230 Alcohol dependence with withdrawal, uncomplicated (principal); F11.23 Opioid dependence with withdrawal; F14.20 Cocaine dependence, uncomplicated; F17.210 Nicotine dependence, cigarettes, uncomplicated; F19.282 Other psychoactive substance dependence with psychoactive substance-induced sleep disorder; F19.24 Other psychoactive substance dependence with psychoactive substance-induced mood disorder; F25.9 Schizoaffective disorder, unspecified; F31.9 Bipolar disorder, unspecified; F41.9 Anxiety disorder, unspecified; I10 Essential (primary) hypertension; F43.10 Post-traumatic stress disorder, unspecified; E78.5 Hyperlipidemia, unspecified; E11.9 Type 2 diabetes mellitus without complications; D64.9 Anemia, unspecified; K21.9 Gastro-esophageal reflux disease without esophagitis; R05 Cough; Z86.69 Personal history of other diseases of the nervous system and sense organs; Z88.0 Allergy status to penicillin; Z91.013 Allergy to seafood; Z91.5 Personal history of self-harm
CPT/HCPCS: 36415; 80053; 81003; 81025; 85027; 86593; 87389

== ENCOUNTER 2019-02-23 11:00 | Inpatient (IN) | payer OTHER ==
[2019-02-23 11:30] VITALS: BMI 29.9
--- NOTE | 2019-02-23 11:47 | HP ---
COWS - Scale Resting Pulse: 2= ME 101-120 Sweatin= Beads of Sweat on Face Restless Observation: 1= Difficult to Sit Still Pupil Size: 1= Pupils >than Normal Bone or Joint Aches: 4=Acute Joint/Muscle Pain Runny Nose/ Eye Tearin= Runny Nose/Eyes GI Upset > 30mins: 2= Nausea/Diarrhea Tremor Observation: 1= Tremor Manning, Not Seen Yawning Observation: 1= 1-2x During Session Anxiety or Irritability: 1=Feels Anxious/Irritable CIWA Score Nausea/Vomitin Muscle Tremors: 3 Anxiety: 3 Agitation: 4-Moderately Restless Paroxysmal Sweats: 4-Forehead w/Sweat Beads Orientation: 1-Uncertain about Date Tacttile Disturbances: 0-None Auditory Disturbances: 0-None Visual Disturbances: 1-Very Mild Sensitivity Headache: 0-None Present CIWA-Ar Total Score: 21 - Admission Criteria OASAS Guidelines: Admission for Medically Managed Detox: Requires at least one of the followin. CIWA greater than 12 2. Seizures within the past 24 hours 3. Delirium tremens within the past 24 hours 4. Hallucinations within the past 24 hours 5. Acute intervention needed for co occurring medical disorder 6. Acute intervention needed for co occurring psychiatric disorder 7. Severe withdrawal that cannot be handled at a lower level of care (continued vomiting, continued diarrhea, abnormal vital signs) requiring intravenous medication and/or fluids 8. Admitting History and Physical - Admission Chief Complaint: " I need to get clean." History of Present Illness: This 28 years old female with heroin,alcohol,cocaine dependence ,seeking detox, with withdrawal symptoms multiple admissions in detox,last 01/19 but did not follow up with rehab and pretty much relapsed right after that. PMH:HTN, Pre-Diabetic, HLD. Anemia, GERD Seizure on withdrawals in 2018; had a blackout last week. Psurg: None Psych: Schizophrenia, Bipolar Disorder was given Seroquel 200mg Med: Lexapro, Clonidine, simvastatin, lisinopril History Source: Patient Limitations to Obtaining History: No Limitations - Past Medical History Cardiovascular: Yes: HTN, Hyperlipdemia ...LMP: 12/06/18 Psych: Yes: Bipolar, Schizophrenia - Past Surgical History Past Surgical History: Yes: None - Advance Directives Advance Directives: No: Living Will, Health Care Proxy, DNR - Smoking History Smoking history: Current every day smoker Have you smoked in the past 12 months: Yes Aproximately how many cigarettes per day: 40 - Alcohol/Substance Use Hx Alcohol Use: Yes (1 pint of vodka daily) Number of Drinks Daily: 10 History of Substance Use: reports: Heroin Date of Last Use: 02/23/19 - Social History Usual Living Arrangement: Yes: With Significant Other Do you think of yourself as: Straight/Heterosexual ADL: Independent Occupation: Unemployed now History of Recent Travel: No Admission ROS [facility] Allergies/Adverse Reactions: Allergies Allergy/AdvReac Type Severity Reaction Status Date / Time penicillin G Allergy Severe Difficulty Verified 02/23/19 11:18 Breathing apple Allergy Unknown Verified 02/23/19 11:18 lemon Allergy Unknown Verified 02/23/19 11:18 raspberry Allergy Unknown Verified 02/23/19 11:18 Exam Limitations: No Limitations - Ebola screening Have you traveled outside of the country in the last 21 days: No Have you had contact with anyone from an Ebola affected area: No Have you been sick,other than usual withdrawal symptoms: No Do you have a fever: No - Review of Systems Constitutional: Chills, Diaphoresis, Unintentional Wgt. Loss EENT: reports: No Symptoms Reported Respiratory: reports: No Symptoms reported Cardiac: reports: No Symptoms Reported GI: reports: No Symptoms Reported : reports: No Symptoms Reported Musculoskeletal: reports: No Symptoms Reported Integumentary: reports: No Symptoms Reported Neuro: reports: No Symptoms reported Endocrine: reports: No Symptoms Reported Hematology: reports: No Symptoms Reported Psychiatric: reports: No Sypmtoms Reported Other Systems: Reviewed and Negative Patient History - Patient Medical History Hx Anemia: Yes (Uncertain about type.) Hx Asthma: No Hx Chronic Obstructive Pulmonary Disease (COPD): No Hx Cancer: No Hx Cardiac Disorders: No Hx Congestive Heart Failure: No Hx Hypertension: No Hx Hypercholesterolemia: No Hx Pacemaker: No HX Cerebrovascular Accident: No Hx Seizures: Yes (Due to Withdrawal; Last Episode: 01/2018) Hx Dementia: No Hx Diabetes: No Hx Gastrointestinal Disorders: Yes (acid reflux) Hx Liver Disease: No Hx Genitourinary Disorders: No Hx Sexually Transmitted Disorders: No Hx Renal Disease (ESRD): No Hx Thyroid Disease: No Hx Human Immunodeficiency Virus (HIV): No (Negative History.last 12/19) Hx Hepatitis C: No (Negative History. ) Hx Depression: Yes (On meds.) Hx Suicide Attempt: Yes (cut left wrist in 11/2016; PATIENT DENIES CURRENT SI / HI.) Hx Bipolar Disorder: Yes (On meds.) Hx Schizophrenia: Yes (schizoaffective disorder; On meds.) - Patient Surgical History Past Surgical History: No Hx Neurologic Surgery: No Hx Cataract Extraction: No Hx Cardiac Surgery: No Hx Lung Surgery: No Hx Breast Surgery: No Hx Breast Biopsy: No Hx Abdominal Surgery: No Hx Appendectomy: No Hx Cholecystectomy: No Hx Genitourinary Surgery: No Hx Section: No Hx Orthopedic Surgery: No Anesthesia Reaction: No - PPD History Previous Implant?: Yes Documented Results: Negative w/proof Date: 08/01/18 Results: 0 mm PPD to be Administered?: No - Reproductive History Patient is a Female of Child Bearing Age (11 -55 yrs old): Yes Last Menstrual Period: 12/06/18 Patient : No - Smoking Cessation Smoking history: Current every day smoker Have you smoked in the past 12 months: Yes Aproximately how many cigarettes per day: 40 Cigars Per Day: 0 Hx Chewing Tobacco Use: No Initiated information on smoking cessation: Yes 'Breaking Loose' booklet given: 02/23/19 - Substances abused Alcohol Substance route: Oral Frequency: Daily Amount used: 1 1/2 LITER OF VODKA Age of first use: 10 Date of last use: 02/23/19 Heroin Substance route: Injection Frequency: Daily Amount used: 2 BAGS Age of first use: 27 Date of last use: 02/17/19 Crack Substance route: Smoking Frequency: Daily Amount used: $50 Age of first use: 22 Date of last use: 01/09/19 Admission Physical Exam BHS - Vital Signs Vital Signs: Vital Signs - 24 hr 02/23/19 11:10 Temperature 98.9 F Pulse Rate 114 H Respiratory 20 Rate Blood Pressure 134/82 - Physical General Appearance: Yes: Moderate Distress, Tremorous, Irritable, Sweating, Anxious HEENTM: Yes: Normal ENT Inspection, YOLANDA, Pharynx Normal Respiratory: Yes: Lungs Clear, Normal Breath Sounds, No Respiratory Distress Neck: Yes: Within Normal Limits, Supple, Trachea in good position Breast: Yes: Breast Exam Deferred Cardiology: Yes: Tachycardia Abdominal: Yes: Normal Bowel Sounds, Non Tender, Flat, Soft Genitourinary: Yes: Within Normal Limits Back: Yes: Muscle Spasm Musculoskeletal: Yes: Back pain Extremities: Yes: Tremors 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: Yes: Within Normal Limits, building 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 (3) Cocaine dependence, uncomplicated Current Visit: No Status: Chronic (4) HLD (hyperlipidemia) Current Visit: No Status: Chronic (5) HTN (hypertension) Current Visit: No Status: Chronic Qualifiers: Hypertension type: essential hypertension Qualified Code(s): I10 - Essential (primary) hypertension (6) Nicotine dependence Current Visit: No Status: Chronic Qualifiers: Nicotine product type: cigarettes Substance use status: uncomplicated Qualified Code(s): F17.210 - Nicotine dependence, cigarettes, uncomplicated (7) Heroin abuse Current Visit: Yes Status: Acute (8) Methadone maintenance therapy patient Current Visit: Yes Status: Acute (9) History of schizoaffective disorder Current Visit: No Status: Chronic Cleared for Admission S - Detox or Rehab [facility] Level of Care: Medically Managed Detox Regimen/Protocol: Librium Claeared for Rehab Admission: No Screened but not Admitted - Documentation of Visit Screened but not Admitted: No Breathalyzer - Breathalyzer Breathalyzer: 0.166 Urine Drug Screen - Test Device Lot number: [id number] Expiration date: 09/30/20 - Control Is test valid?: Yes - Results Drug screen NEGATIVE: No Urine drug screen results: ARANZA-Cocaine, FEN-Fentanyl, MOP-Opiates, BZO- Benzodiazepines, BUP-Suboxone Inpatient Rehab Admission - Rehab Decision to Admit Inpatient rehab admission?: No
[2019-02-23] MEDS ORDERED: MELATONIN 5 MG TABLETS PO PRN (11:54)
[2019-02-23] MEDS ORDERED: MENTHOL/PHENOL 1 EACH UD MM PRN (11:54)
[2019-02-23] MEDS ORDERED: MAGNESIUM HYDROX 2400MG/30ML ORAL SUSPENSION 30 ML CUP PO PRN (11:54)
[2019-02-23] MEDS ORDERED: METHOCARBAMOL 500 MG TABLET PO PRN (11:54)
[2019-02-23] MEDS ORDERED: MAGNESIUM CITRATE 300 ML BOTTLE PO PRN (11:54)
[2019-02-23] MEDS ORDERED: IBUPROFEN 400 MG TABLET (FP) PO PRN (11:54)
[2019-02-23] MEDS ORDERED: ACETAMINOPHEN 325 MG TABLET (FP) PO PRN ×2 (11:54)
[2019-02-23] MEDS ORDERED: MAG HYDROX/AL HYDROX/SIMETH 30 ML UNIT-DOSE CUP PO PRN (11:54)
[2019-02-23] MEDS ORDERED: METHADONE HCL 10 MG TABLET PO SCH (12:00)
[2019-02-23] MEDS ORDERED: ESCITALOPRAM OXALATE 10 MG TABLET (FP) ONE (13:36)
[2019-02-23] MEDS ORDERED: METHADONE HCL 10 MG TABLET ONE (13:41)
[2019-02-23] MEDS ORDERED: METHADONE HCL 40 MG DISPERSABLE TABLET ONE (13:42)
[2019-02-23] MEDS: GABAPENTIN 100 MG CAPSULE (FP) PO SCH ×2 (13:44→22:14)
[2019-02-23] MEDS ORDERED: METHADONE 40 MG, METHADONE 10 MG PO ONE (13:45)
[2019-02-23] MEDS: ESCITALOPRAM OXALATE 20 MG TABLET (FP) PO SCH (13:45)
[2019-02-23] MEDS: HALOPERIDOL 5 MG TABLET (FP) PO SCH (13:45)
[2019-02-23] MEDS: chlordiazePOXIDE HCL 25 MG CAPSULE PO PRN ×2 (13:46→19:52)
[2019-02-23] MEDS: chlordiazePOXIDE HCL 25 MG CAPSULE PO SCH ×2 (16:59→22:14)
[2019-02-23] MEDS ORDERED: traZODone HCL 100 MG TABLET (FP) PO SCH (22:00)
[2019-02-23] MEDS: cloNIDine HCL 0.1 MG TABLET PO SCH (22:14)
[2019-02-23] MEDS: ATORVASTATIN CA 10 MG TABLET (FP) PO SCH (22:14)
[2019-02-23] MEDS: levETIRAcetam 500 MG TABLET (FP) PO SCH (22:14)
[2019-02-23] MEDS: THIAMINE HCL 100 MG TABLET (FP) PO SCH (22:15)
[2019-02-24] MEDS ORDERED: METHADONE HCL 10 MG TABLET ONE (04:30)
[2019-02-24] MEDS ORDERED: METHADONE HCL 40 MG DISPERSABLE TABLET ONE (04:31)
[2019-02-24] MEDS: GABAPENTIN 100 MG CAPSULE (FP) PO SCH (05:51)
[2019-02-24] MEDS: METHADONE 40 MG, METHADONE 10 MG PO SCH (05:51)
[2019-02-24] MEDS: chlordiazePOXIDE HCL 25 MG CAPSULE PO SCH ×4 (05:51→22:07)
--- NOTE | 2019-02-24 09:54 | PN ---
S CIWA - CIWA Score Nausea/Vomitin Muscle Tremors: 4-Moderate,w/Arms Extend Anxiety: 3 Agitation: 3 Paroxysmal Sweats: 2 Orientation: 1-Uncertain about Date Tacttile Disturbances: 0-None Auditory Disturbances: 0-None Visual Disturbances: 0-None Headache: 1-Very Mild CIWA-Ar Total Score: 16 BHS Progress Note (SOAP) Subjective: 28 years old female admitted on 02/23/19 for alcohol withdrawal sx management treating with librium detox regimen ate breakfast feeling tired prefers to stay in bed today limited conversation with staff Objective: 02/24/19 09:52 Vital Signs Temperature 96.9 F L 02/24/19 09:22 Pulse Rate 66 02/24/19 09:22 Respiratory Rate 18 02/24/19 09:22 Blood Pressure 100/62 02/24/19 09:22 O2 Sat by Pulse Oximetry (%) 02/24/19 09:53 lab pending Assessment: 02/24/19 09:53 alcohol withdrawal methadone 50 mg po daily 02/24/19 09:54 feeling better that had methadone 50mg po today Plan: librium regimen
[2019-02-24] MEDS: levETIRAcetam 500 MG TABLET (FP) PO SCH ×2 (10:25→22:07)
[2019-02-24] MEDS: ESCITALOPRAM OXALATE 20 MG TABLET (FP) PO SCH (10:25)
[2019-02-24] MEDS: PRENATAL VITAMINS W/ FOLIC ACID TABLET (FP) PO SCH (10:25)
[2019-02-24] MEDS: HALOPERIDOL 5 MG TABLET (FP) PO SCH (10:25)
[2019-02-24] MEDS: cloNIDine HCL 0.1 MG TABLET PO SCH ×2 (10:26→22:07)
[2019-02-24 11:05] LABS: BLOOD UREA NITROGEN 13.1 mg/dL (7-18); CALCIUM 9.5 mg/dL (8.5-10.1); CREATININE 0.6 mg/dL (0.55-1.3); TOT PROT 7.9 g/dl (6.4-8.2)
[2019-02-24 11:09] LABS: HEMATOCRIT 41.9 % (32.4-45.2); HEMOGLOBIN 13.9 GM/dL (10.7-15.3); MCH 31.9 pg (25.7-33.7); MCHC 33.3 g/dl (32.0-36.0); MEAN CELL VOLUME 95.8 fl (80-96); PLATELET COUNT 107 K/MM3 (134-434); RBC 4.37 M/mm3 (3.60-5.2); RDW 14.4 % (11.6-15.6); WHITE BLOOD COUNT 5.5 K/mm3 (4.0-10.0)
[2019-02-24] MEDS: NICOTINE 21 MG/24 HOURS TOPICAL PATCH TD SCH (12:51)
--- NOTE | 2019-02-24 13:56 | CONSULT ---
[facility] Psychiatric Consult - Data Date of interview: 02/24/19 Psychiatric History: Patient approached at bedside. She appears very drowsy. She told food writer:" I have no reason to talk to you"
[2019-02-24] MEDS: BISMUTH SUBSALICYLATE 524 MG/30 ML UD PO PRN (15:00)
[2019-02-24] MEDS: chlordiazePOXIDE HCL 25 MG CAPSULE PO PRN (15:23)
[2019-02-24] MEDS: ATORVASTATIN CA 10 MG TABLET (FP) PO SCH (22:07)
[2019-02-24] MEDS: THIAMINE HCL 100 MG TABLET (FP) PO SCH (22:07)
[2019-02-24] MEDS: hydrOXYzine PAMOATE 25 MG CAPSULE (FP) PO PRN (22:11)
[2019-02-25] MEDS ORDERED: METHADONE HCL 10 MG TABLET ONE (04:39)
[2019-02-25] MEDS ORDERED: METHADONE HCL 40 MG DISPERSABLE TABLET ONE (04:40)
[2019-02-25] MEDS: METHADONE 40 MG, METHADONE 10 MG PO SCH (05:06)
[2019-02-25] MEDS: chlordiazePOXIDE HCL 25 MG CAPSULE PO SCH ×4 (05:06→22:05)
[2019-02-25] MEDS ORDERED: ESCITALOPRAM OXALATE 10 MG TABLET (FP) ONE (09:24)
[2019-02-25] MEDS: PRENATAL VITAMINS W/ FOLIC ACID TABLET (FP) PO SCH (10:25)
[2019-02-25] MEDS: cloNIDine HCL 0.1 MG TABLET PO SCH ×2 (10:26→22:29)
[2019-02-25] MEDS: levETIRAcetam 500 MG TABLET (FP) PO SCH ×2 (10:26→22:06)
[2019-02-25] MEDS: NICOTINE 21 MG/24 HOURS TOPICAL PATCH TD SCH (10:27)
[2019-02-25] MEDS: HALOPERIDOL 5 MG TABLET (FP) PO SCH (10:28)
[2019-02-25] MEDS: ESCITALOPRAM OXALATE 20 MG TABLET (FP) PO SCH (10:29)
[2019-02-25] MEDS ORDERED: IBUPROFEN 600 MG TABLET (FP) PO PRN (10:51)
--- NOTE | 2019-02-25 11:07 | PN ---
S CIWA - CIWA Score Nausea/Vomitin-Mild Nausea/No Vomiting Muscle Tremors: 3 Anxiety: 2 Agitation: 1-Slight > Activity Paroxysmal Sweats: 2 Orientation: 0-Oriented Tacttile Disturbances: 1-Very Mild Itch/Numbness Auditory Disturbances: 1-Very Mild Visual Disturbances: 0-None Headache: 2-Mild CIWA-Ar Total Score: 13 BHS Progress Note (SOAP) Subjective: 28 years old female admitted on 02/23/19 for alcohol withdrawal sx management treating with librium detox regimen reports chronic lower backpain -07/10 treated with motrin 600 mg po at home lidocain patch to lower back discontinue motrin 400mg po increase to 600 mg po Objective: 02/25/19 11:05 Vital Signs Temperature 97.9 F 02/25/19 09:28 Pulse Rate 80 02/25/19 09:28 Respiratory Rate 18 02/25/19 09:28 Blood Pressure 95/66 02/25/19 09:28 O2 Sat by Pulse Oximetry (%) Laboratory Last Values WBC 5.5 K/mm3 (4.0-10.0) 02/24/19 07:50 RBC 4.37 M/mm3 (3.60-5.2) 02/24/19 07:50 Hgb 13.9 GM/dL (10.7-15.3) 02/24/19 07:50 Hct 41.9 % (32.4-45.2) 02/24/19 07:50 MCV 95.8 fl (80-96) 02/24/19 07:50 MCH 31.9 pg (25.7-33.7) 02/24/19 07:50 MCHC 33.3 g/dl (32.0-36.0) 02/24/19 07:50 RDW 14.4 % (11.6-15.6) 02/24/19 07:50 Plt Count 107 K/MM3 (134-434) L D 02/24/19 07:50 MPV 10.0 fl (7.5-11.1) 02/24/19 07:50 Sodium 135 mmol/L (136-145) L 02/24/19 07:50 Potassium 3.0 mmol/L (3.5-5.1) L 02/24/19 07:50 Chloride 93 mmol/L (98-107) L 02/24/19 07:50 Carbon Dioxide 34 mmol/L (21-32) H 02/24/19 07:50 Anion Gap 8 MMOL/L (8-16) 02/24/19 07:50 BUN 13.1 mg/dL (7-18) 02/24/19 07:50 Creatinine 0.6 mg/dL (0.55-1.3) 02/24/19 07:50 Est GFR (CKD-EPI)AfAm 145.80 02/24/19 07:50 Est GFR (CKD-EPI)NonAf 125.80 02/24/19 07:50 Random Glucose 91 mg/dL (74-106) 02/24/19 07:50 Calcium 9.5 mg/dL (8.5-10.1) 02/24/19 07:50 Total Bilirubin 2.0 mg/dL (0.2-1) H 02/24/19 07:50 AST 213 U/L (15-37) H 02/24/19 07:50 ALT 118 U/L (13-61) H 02/24/19 07:50 Alkaline Phosphatase 105 U/L (45-117) 02/24/19 07:50 Total Protein 7.9 g/dl (6.4-8.2) 02/24/19 07:50 Albumin 4.0 g/dl (3.4-5.0) 02/24/19 07:50 RPR Titer Nonreactive (NONREACTIVE) 02/24/19 07:50 lab noted patient acknowledged plt below normal range chronic back pain "only motrin helps" risks and benefits provided to the patient low K+ begin K+ supplement ast elevation discuss ativan for alcohol detox patient prefers librium that ativan does not work well with her repeat ast 02/27/19 02/25/19 11:16 Assessment: 02/25/19 11:17 alcohol withdrawal Plan: librium and methadone regimens
[2019-02-25] MEDS ORDERED: POTASSIUM CHLORIDE ORAL LIQUID 20 MEQ/15 ML PO ONE ×2 (12:00→18:00)
[2019-02-25] MEDS: chlordiazePOXIDE HCL 25 MG CAPSULE PO PRN (13:10)
[2019-02-25] MEDS: LIDOCAINE 5% TOPICAL PATCH TP SCH (13:11)
[2019-02-25] MEDS: NICOTINE POLACRILEX 4 MG GUM BUC PRN (13:22)
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
[2019-02-25] MEDS: BISMUTH SUBSALICYLATE 524 MG/30 ML UD PO PRN ×2 (15:36→17:19)
[2019-02-25] MEDS: hydrOXYzine PAMOATE 25 MG CAPSULE (FP) PO PRN ×2 (15:36→23:58)
[2019-02-25] MEDS ORDERED: GABAPENTIN 100 MG CAPSULE (FP) PO ONE ×2 (17:00→17:15)
[2019-02-25] MEDS: THIAMINE HCL 100 MG TABLET (FP) PO SCH (22:05)
[2019-02-25] MEDS: LIDOCAINE PATCH REMOVAL MC SCH (22:06)
[2019-02-25] MEDS: ATORVASTATIN CA 10 MG TABLET (FP) PO SCH (22:06)
[2019-02-25] MEDS: traZODone HCL 100 MG TABLET (FP) PO SCH (22:06)
[2019-02-26] MEDS ORDERED: chlordiazePOXIDE HCL 10 MG CAPSULE PO PRN
[2019-02-26] MEDS ORDERED: METHADONE HCL 10 MG TABLET ONE (04:31)
[2019-02-26] MEDS ORDERED: METHADONE HCL 40 MG DISPERSABLE TABLET ONE (04:32)
[2019-02-26] MEDS: METHADONE 40 MG, METHADONE 10 MG PO SCH (05:52)
[2019-02-26] MEDS: chlordiazePOXIDE HCL 10 MG CAPSULE PO SCH ×4 (05:52→22:10)
[2019-02-26] MEDS ORDERED: ESCITALOPRAM OXALATE 20 MG TABLET (FP) PO SCH (10:00)
[2019-02-26] MEDS ORDERED: ARIPiprazole 5 MG TABLET (FP) PO SCH (10:00)
[2019-02-26] MEDS: NICOTINE 21 MG/24 HOURS TOPICAL PATCH TD SCH (10:10)
[2019-02-26] MEDS: cloNIDine HCL 0.1 MG TABLET PO SCH ×2 (10:10→22:10)
[2019-02-26] MEDS: levETIRAcetam 500 MG TABLET (FP) PO SCH ×2 (10:11→22:11)
[2019-02-26] MEDS: LIDOCAINE 5% TOPICAL PATCH TP SCH (10:11)
[2019-02-26] MEDS: PRENATAL VITAMINS W/ FOLIC ACID TABLET (FP) PO SCH (10:11)
--- NOTE | 2019-02-26 12:15 | PN ---
[facility] CIWA - CIWA Score Nausea/Vomitin-No Nausea/No Vomiting Muscle Tremors: None Anxiety: 2 Agitation: 0-Normal Activity Paroxysmal Sweats: 3 Orientation: 0-Oriented Tacttile Disturbances: 0-None Auditory Disturbances: 0-None Visual Disturbances: 0-None Headache: 1-Very Mild CIWA-Ar Total Score: 6 S Progress Note (SOAP) Subjective: c/o mild withdrawal symptoms. Objective: 02/26/19 12:13 Vital Signs 02/26/19 02/26/19 06:18 09:11 Temperature 97.7 F 97.7 F Pulse Rate 68 102 H Respiratory 18 16 Rate Blood Pressure 108/74 110/76 Laboratory Last Values WBC 5.5 K/mm3 (4.0-10.0) 02/24/19 07:50 RBC 4.37 M/mm3 (3.60-5.2) 02/24/19 07:50 Hgb 13.9 GM/dL (10.7-15.3) 02/24/19 07:50 Hct 41.9 % (32.4-45.2) 02/24/19 07:50 MCV 95.8 fl (80-96) 02/24/19 07:50 MCH 31.9 pg (25.7-33.7) 02/24/19 07:50 MCHC 33.3 g/dl (32.0-36.0) 02/24/19 07:50 RDW 14.4 % (11.6-15.6) 02/24/19 07:50 Plt Count 107 K/MM3 (134-434) L D 02/24/19 07:50 MPV 10.0 fl (7.5-11.1) 02/24/19 07:50 Sodium 135 mmol/L (136-145) L 02/24/19 07:50 Potassium 3.6 mmol/L (3.5-5.1) 02/26/19 07:40 Chloride 93 mmol/L (98-107) L 02/24/19 07:50 Carbon Dioxide 34 mmol/L (21-32) H 02/24/19 07:50 Anion Gap 8 MMOL/L (8-16) 02/24/19 07:50 BUN 13.1 mg/dL (7-18) 02/24/19 07:50 Creatinine 0.6 mg/dL (0.55-1.3) 02/24/19 07:50 Est GFR (CKD-EPI)AfAm 145.80 02/24/19 07:50 Est GFR (CKD-EPI)NonAf 125.80 02/24/19 07:50 Random Glucose 91 mg/dL (74-106) 02/24/19 07:50 Calcium 9.5 mg/dL (8.5-10.1) 02/24/19 07:50 Total Bilirubin 2.0 mg/dL (0.2-1) H 02/24/19 07:50 AST 213 U/L (15-37) H 02/24/19 07:50 ALT 118 U/L (13-61) H 02/24/19 07:50 Alkaline Phosphatase 105 U/L (45-117) 02/24/19 07:50 Total Protein 7.9 g/dl (6.4-8.2) 02/24/19 07:50 Albumin 4.0 g/dl (3.4-5.0) 02/24/19 07:50 RPR Titer Nonreactive (NONREACTIVE) 02/24/19 07:50 Labs noted. Assessment: 02/26/19 12:14 AOX3, in no acute respiratory distress. Full ROM, ambulating in the unit. Withdrawal symptoms. Plan: continue detox.
[2019-02-26] MEDS: NICOTINE POLACRILEX 4 MG GUM BUC PRN ×2 (12:50→15:15)
[2019-02-26] MEDS: hydrOXYzine PAMOATE 25 MG CAPSULE (FP) PO PRN ×2 (13:04→23:09)
[2019-02-26] MEDS: traZODone HCL 100 MG TABLET (FP) PO SCH (22:10)
[2019-02-26] MEDS: ATORVASTATIN CA 10 MG TABLET (FP) PO SCH (22:10)
[2019-02-26] MEDS: LIDOCAINE PATCH REMOVAL MC SCH (22:10)
[2019-02-26] MEDS: THIAMINE HCL 100 MG TABLET (FP) PO SCH (22:10)
[2019-02-27] MEDS ORDERED: METHADONE HCL 10 MG TABLET ONE (04:42)
[2019-02-27] MEDS ORDERED: METHADONE HCL 40 MG DISPERSABLE TABLET ONE (04:43)
[2019-02-27] MEDS ORDERED: chlordiazePOXIDE HCL 10 MG CAPSULE PO SCH (05:00)
[2019-02-27] MEDS: METHADONE 40 MG, METHADONE 10 MG PO SCH (05:22)
[2019-02-27 06:46] VITALS: BP 123/87; PULSE 80; TEMP 98.3
--- NOTE | 2019-02-27 12:17 | DS ---
[facility] Detox Discharge Summary Admission Date: 02/23/19 Discharge Date: 02/27/19 - History Present History: Alcohol Dependence, Cocaine Dependence, Opioid Dependence Additional Comments: Pt is to complete the detox protocol tomorrow and then D/C but pt denies any withdrawals symptoms and requested to leave today. No withdrawals signs noted. Pt is medically cleared and discharged today. Pt is encouraged to follow-up with an outpatient CD program and also to follow-up with her pmd. Pt verbalized understanding of the information given. Pt is alert and oriented x3 and in no respiratory distress. Pertinent Past History: h/o alcohol, heroin, and cocaine use disorder. - Physical Exam Results Vital Signs: Vital Signs Temperature 98.3 F 02/27/19 06:45 Pulse Rate 80 02/27/19 06:45 Respiratory Rate 18 02/27/19 06:45 Blood Pressure 123/87 02/27/19 06:45 O2 Sat by Pulse Oximetry (%) Vital Signs 02/27/19 06:45 Temperature 98.3 F Pulse Rate 80 Respiratory 18 Rate Blood Pressure 123/87 Laboratory Last Values WBC 5.5 K/mm3 (4.0-10.0) 02/24/19 07:50 RBC 4.37 M/mm3 (3.60-5.2) 02/24/19 07:50 Hgb 13.9 GM/dL (10.7-15.3) 02/24/19 07:50 Hct 41.9 % (32.4-45.2) 02/24/19 07:50 MCV 95.8 fl (80-96) 02/24/19 07:50 MCH 31.9 pg (25.7-33.7) 02/24/19 07:50 MCHC 33.3 g/dl (32.0-36.0) 02/24/19 07:50 RDW 14.4 % (11.6-15.6) 02/24/19 07:50 Plt Count 107 K/MM3 (134-434) L D 02/24/19 07:50 MPV 10.0 fl (7.5-11.1) 02/24/19 07:50 Sodium 135 mmol/L (136-145) L 02/24/19 07:50 Potassium 3.6 mmol/L (3.5-5.1) 02/26/19 07:40 Chloride 93 mmol/L (98-107) L 02/24/19 07:50 Carbon Dioxide 34 mmol/L (21-32) H 02/24/19 07:50 Anion Gap 8 MMOL/L (8-16) 02/24/19 07:50 BUN 13.1 mg/dL (7-18) 02/24/19 07:50 Creatinine 0.6 mg/dL (0.55-1.3) 02/24/19 07:50 Est GFR (CKD-EPI)AfAm 145.80 02/24/19 07:50 Est GFR (CKD-EPI)NonAf 125.80 02/24/19 07:50 Random Glucose 91 mg/dL (74-106) 02/24/19 07:50 Calcium 9.5 mg/dL (8.5-10.1) 02/24/19 07:50 Total Bilirubin 2.0 mg/dL (0.2-1) H 02/24/19 07:50 AST 213 U/L (15-37) H 02/24/19 07:50 ALT 118 U/L (13-61) H 02/24/19 07:50 Alkaline Phosphatase 105 U/L (45-117) 02/24/19 07:50 Total Protein 7.9 g/dl (6.4-8.2) 02/24/19 07:50 Albumin 4.0 g/dl (3.4-5.0) 02/24/19 07:50 RPR Titer Nonreactive (NONREACTIVE) 02/24/19 07:50 Labs noted. Pertinent Admission Physical Exam Findings: withdrawal sypmtoms. - Treatment Hospital Course: Detox Protocol Followed, Detoxed Safely, Responded well, Discharged Condition Good - Medication Discharge Medications: Ambulatory Orders hydrOXYzine HCL [Atarax -] 50 mg PO Q6H PRN #90 tablet 01/22/17 Acetaminophen 650 mg PO Q6H PRN 07/30/18 Clonidine HCl 0.1 mg PO BID 07/30/18 Haloperidol [Haldol -] 5 mg PO DAILY #30 tablet 08/03/18 Simvastatin 10 mg PO HS 01/10/19 Aripiprazole [Abilify -] 5 mg PO DAILY #30 tablet 01/15/19 Atorvastatin Ca [Lipitor] 10 mg PO HS #30 tablet 11/15/19 Escitalopram Oxalate [Lexapro -] 20 mg PO DAILY #30 tablet 01/15/19 Gabapentin [Neurontin -] 200 mg PO TID #90 capsule 01/15/19 levETIRAcetam [Keppra -] 500 mg PO BID #60 tablet 01/15/19 traZODone HCL [Desyrel -] 200 mg PO HS #30 tablet 01/15/19 - Diagnosis (1) Heroin abuse Status: Acute (2) IVDU (intravenous drug user) Status: Acute (3) Methadone maintenance therapy patient Status: Acute (4) Opioid dependence, uncomplicated Status: Acute (5) Acid reflux Status: Chronic Qualifiers: Esophagitis presence: esophagitis presence not specified Qualified Code(s) : K21.9 - Gastro-esophageal reflux disease without esophagitis (6) Alcohol dependence with uncomplicated withdrawal Status: Chronic (7) Cocaine dependence, uncomplicated Status: Chronic (8) HLD (hyperlipidemia) Status: Chronic (9) HTN (hypertension) Status: Chronic Qualifiers: Hypertension type: essential hypertension Qualified Code(s): I10 - Essential (primary) hypertension (10) Nicotine dependence Status: Chronic Qualifiers: Nicotine product type: cigarettes Substance use status: uncomplicated Qualified Code(s): F17.210 - Nicotine dependence, cigarettes, uncomplicated (11) Opioid dependence with withdrawal Status: Chronic (12) Sedative, hypnotic or anxiolytic abuse with sedative, hypnotic or anxiolytic-induced anxiety disorder Status: Chronic (13) History of seizures Status: Resolved - AMA Did Patient Leave Against Medical Advice: No
[2019-02-28] MEDS ORDERED: chlordiazePOXIDE HCL 10 MG CAPSULE PO ONE (05:00)
== END 2019-02-27 08:59 | disposition home or self-care (01) | DRG 773 ==
LOC: YASAS 11:00 → Y3N 12:47
PROVIDERS: ADMIT Allergy & Immunology; ATTEND Allergy & Immunology
PROC: HZ2ZZZZ Detoxification Services for Substance Abuse Treatment (ICD-10-PCS; principal; 2019-02-23)
DX: F11.23 Opioid dependence with withdrawal (principal); F10.230 Alcohol dependence with withdrawal, uncomplicated; F14.20 Cocaine dependence, uncomplicated; F13.280 Sedative, hypnotic or anxiolytic dependence with sedative, hypnotic or anxiolytic-induced anxiety disorder; F17.210 Nicotine dependence, cigarettes, uncomplicated; F25.9 Schizoaffective disorder, unspecified; I10 Essential (primary) hypertension; K21.9 Gastro-esophageal reflux disease without esophagitis; E78.5 Hyperlipidemia, unspecified; R73.03 Prediabetes; R00.0 Tachycardia, unspecified; Z88.0 Allergy status to penicillin; Z91.018 Allergy to other foods; Z62.810 Personal history of physical and sexual abuse in childhood; Z86.69 Personal history of other diseases of the nervous system and sense organs; Z91.5 Personal history of self-harm
CPT/HCPCS: 36415; 80053; 84132; 85027; 86593; 93005; 93010; J0735

== ENCOUNTER 2019-09-08 12:15 | Inpatient (IN) | payer OTHER ==
--- NOTE | 2019-09-08 12:20 | BHS.RME ---
Substance Use & Tx History - Substance Use History Alcohol Substance amount: 4 pints vodka Frequency of use: Daily Substance route: Oral Date of Last Use: 09/08/19 Heroin Substance amount: 15 bags Frequency of use: Daily Substance route: Inhalation (ex: sniffing or snorting), Injection (ex: intravenous or skin popping) Date of Last Use: 09/07/19 Cocaine-Crack Substance amount: $200 Frequency of use: Daily Substance route: Smoking Date of Last Use: 09/08/19 Nicotine Substance amount: 2 packs Frequency of use: Daily Substance route: Smoking Date of Last Use: 09/08/19 Physical/Psych/Mental Status - Behavior General Behavior: Increased activity (restlessness, agitation) Eye Contact: Normal - Cooperativeness Cooperativeness: Cooperative - Thinking Thought Processes: Tight, Logical, Goal Directed - Physical Health Problems Is patient presently having any pain?: No Does patient presently have any injuries (include location): No Does patient currently have a fever: No Is patient : No COWS - Scale Resting Pulse: 0= MD 80 or Below Sweatin= Chills/Flushing Restless Observation: 1= Difficult to Sit Still Pupil Size: 1= Pupils >than Normal Bone or Joint Aches: 1= Mild Discomfort Runny Nose/ Eye Tearin= Nasal Congestion GI Upset > 30mins: 2= Nausea/Diarrhea Tremor Observation: 1= Tremor [place], Not Seen Yawning Observation: 1= 1-2x During Session Anxiety or Irritability: 2=Irritable/Anxious Goose Flesh Skin: 0=Smooth Skin COWS Score: 11 CIWA Nausea/Vomitin Muscle Tremors: 2 Anxiety: 4-Mod. Anxious/Guarded Agitation: 4-Moderately Restless Paroxysmal Sweats: 2 Orientation: 0-Oriented Tacttile Disturbances: 0-None Auditory Disturbances: 0-None Visual Disturbances: 0-None Headache: 3-Moderate CIWA-Ar Total Score: 17
[2019-09-08 12:57] VITALS: BMI 27.7
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
[2019-09-08] MEDS ORDERED: MAGNESIUM HYDROX 2400MG/30ML ORAL SUSPENSION 30 ML CUP PO PRN (13:09)
[2019-09-08] MEDS ORDERED: MENTHOL/PHENOL 1 EACH UD MM PRN (13:09)
[2019-09-08] MEDS ORDERED: IBUPROFEN 400 MG TABLET (FP) PO PRN (13:09)
[2019-09-08] MEDS ORDERED: cloNIDine HCL 0.1 MG TABLET PO PRN (13:09)
[2019-09-08] MEDS ORDERED: MAG HYDROX/AL HYDROX/SIMETH 30 ML UNIT-DOSE CUP PO PRN (13:09)
[2019-09-08] MEDS ORDERED: MAGNESIUM CITRATE 300 ML BOTTLE PO PRN (13:09)
[2019-09-08] MEDS ORDERED: BISMUTH SUBSALICYLATE 524 MG/30 ML UD PO PRN (13:09)
[2019-09-08] MEDS ORDERED: ACETAMINOPHEN 325 MG TABLET (FP) PO PRN ×2 (13:09)
[2019-09-08] MEDS ORDERED: NICOTINE POLACRILEX 2 MG GUM BUC PRN (13:09)
[2019-09-08] MEDS ORDERED: chlordiazePOXIDE HCL 25 MG CAPSULE PO PRN (13:09)
[2019-09-08] MEDS ORDERED: hydrOXYzine PAMOATE 25 MG CAPSULE (FP) PO PRN (13:55)
[2019-09-08] MEDS ORDERED: METHADONE HCL 10 MG TABLET (FOR DETOX USE ONLY) PO ONE (14:00)
[2019-09-08] MEDS ORDERED: NICOTINE 7 MG/24 HOURS TOPICAL PATCH TD SCH (14:00)
[2019-09-08] MEDS ORDERED: hydrOXYzine PAMOATE 25 MG CAPSULE (FP) PO SCH (14:00)
[2019-09-08] MEDS ORDERED: ONDANSETRON *ODT* 4 MG TABLET SL ONE (14:00)
[2019-09-08] MEDS: chlordiazePOXIDE HCL 25 MG CAPSULE PO SCH ×3 (14:00→22:01)
[2019-09-08] MEDS: PRENATAL VITAMINS W/ FOLIC ACID TABLET (FP) PO SCH (14:05)
[2019-09-08 16:56] LABS: HEMATOCRIT 39.6 % (32.4-45.2); HEMOGLOBIN 13.4 GM/dL (10.7-15.3); MCH 32.4 pg (25.7-33.7); MCHC 33.7 g/dl (32.0-36.0); MEAN PLT VOLUME 10.5 fl (7.5-11.1); PLATELET COUNT 207 K/MM3 (134-434); RBC 4.13 M/mm3 (3.60-5.2); RDW 13.5 % (11.6-15.6); WHITE BLOOD COUNT 9.6 K/mm3 (4.0-10.0)
[2019-09-08 17:07] LABS: ALBUMIN 3.7 g/dl (3.4-5.0); BILIRUBIN,TOTAL 0.6 mg/dL (0.2-1); BLOOD UREA NITROGEN 9.2 mg/dL (7-18); CREATININE 0.7 mg/dL (0.55-1.3); POTASSIUM 3.5 mmol/L (3.5-5.1); TOT PROT 7.4 g/dl (6.4-8.2)
[2019-09-08] MEDS: cloNIDine HCL 0.1 MG TABLET PO SCH (22:01)
[2019-09-08] MEDS: THIAMINE HCL 100 MG TABLET (FP) PO SCH (22:01)
[2019-09-08] MEDS: ATORVASTATIN CA 10 MG TABLET (FP) PO SCH (22:02)
[2019-09-08] MEDS: levETIRAcetam 500 MG TABLET (FP) PO SCH (22:02)
[2019-09-08] MEDS: MELATONIN 5 MG TABLETS PO SCH (22:02)
[2019-09-09] MEDS: chlordiazePOXIDE HCL 25 MG CAPSULE PO SCH ×4 (06:23→22:15)
--- NOTE | 2019-09-09 09:06 | PN ---
S CIWA - CIWA Score Nausea/Vomitin Muscle Tremors: 2 Anxiety: 2 Agitation: 2 Paroxysmal Sweats: No Perspiration Orientation: 0-Oriented Tacttile Disturbances: 1-Very Mild Itch/Numbness Auditory Disturbances: 0-None Visual Disturbances: 0-None Headache: 2-Mild CIWA-Ar Total Score: 11 BHS COWS - Scale Resting Pulse: 1= [place] 81-100 Sweatin= No chills or Flushing Restless Observation: 1= Difficult to Sit Still Pupil Size: 0= Normal to Room Light Bone or Joint Aches: 2= Severe Diffuse Aches Runny Nose/ Eye Tearin= Nasal Congestion GI Upset > 30mins: 2= Nausea/Diarrhea Tremor Observation of Outstretched Hands: 2= Slight Tremor Visible Yawning Observation: 1= 1-2x During Session Anxiety or Irritability: 2=Irritable/Anxious Goose Flesh Skin: 0=Smooth Skin COWS Score: 12 S Progress Note (SOAP) Subjective: alert,irritable,anxious,interrupted sleep,tremor,pain in the body and back,nausea Objective: 09/09/19 09:05 Vital Signs Temperature 97.5 F L 09/08/19 20:34 Pulse Rate 65 09/09/19 06:20 Respiratory Rate 17 09/08/19 20:34 Blood Pressure 104/61 09/09/19 06:20 O2 Sat by Pulse Oximetry (%) 97 09/08/19 20:34 Laboratory Last Values WBC 9.6 K/mm3 (4.0-10.0) 09/08/19 13:15 RBC 4.13 M/mm3 (3.60-5.2) 09/08/19 13:15 Hgb 13.4 GM/dL (10.7-15.3) 09/08/19 13:15 Hct 39.6 % (32.4-45.2) 09/08/19 13:15 MCV 96.0 fl (80-96) 09/08/19 13:15 MCH 32.4 pg (25.7-33.7) 09/08/19 13:15 MCHC 33.7 g/dl (32.0-36.0) 09/08/19 13:15 RDW 13.5 % (11.6-15.6) 09/08/19 13:15 Plt Count 207 K/MM3 (134-434) 09/08/19 13:15 MPV 10.5 fl (7.5-11.1) 09/08/19 13:15 Sodium 139 mmol/L (136-145) 09/08/19 13:15 Potassium 3.5 mmol/L (3.5-5.1) 09/08/19 13:15 Chloride 108 mmol/L (98-107) H 09/08/19 13:15 Carbon Dioxide 25 mmol/L (21-32) 09/08/19 13:15 Anion Gap 6 MMOL/L (8-16) L 09/08/19 13:15 BUN 9.2 mg/dL (7-18) 09/08/19 13:15 Creatinine 0.7 mg/dL (0.55-1.3) 09/08/19 13:15 Est GFR (CKD-EPI)AfAm 138.59 09/08/19 13:15 Est GFR (CKD-EPI)NonAf 119.58 09/08/19 13:15 Random Glucose 103 mg/dL (74-106) 09/08/19 13:15 Calcium 9.0 mg/dL (8.5-10.1) 09/08/19 13:15 Total Bilirubin 0.6 mg/dL (0.2-1) 09/08/19 13:15 AST 13 U/L (15-37) L 09/08/19 13:15 ALT 32 U/L (13-61) 09/08/19 13:15 Alkaline Phosphatase 68 U/L (45-117) 09/08/19 13:15 Total Protein 7.4 g/dl (6.4-8.2) 09/08/19 13:15 Albumin 3.7 g/dl (3.4-5.0) 09/08/19 13:15 Syphilis Serology Non-reactive (NONREACTIVE) 09/08/19 13:15 HIV Ag/Ab Combo Qual Negative (NEGATIVE) 09/08/19 13:50 Assessment: 09/09/19 09:06 withdrawal symptom Plan: continue detox methadone and librium regimen
[2019-09-09] MEDS ORDERED: METHADONE HCL 10 MG TABLET (FOR DETOX USE ONLY) ONE (09:07)
[2019-09-09] MEDS ORDERED: METHADONE HCL 5 MG TABLET (FOR DETOX USE ONLY) ONE (09:07)
[2019-09-09] MEDS ORDERED: METHADONE (DETOX) 20 MG, METHADONE (DETOX) 5 MG PO ONE (10:00)
[2019-09-09] MEDS: levETIRAcetam 500 MG TABLET (FP) PO SCH ×2 (10:13→22:15)
[2019-09-09] MEDS: NICOTINE 21 MG/24 HOURS TOPICAL PATCH TD SCH (10:14)
[2019-09-09] MEDS: PRENATAL VITAMINS W/ FOLIC ACID TABLET (FP) PO SCH (10:14)
[2019-09-09] MEDS: cloNIDine HCL 0.1 MG TABLET PO SCH ×2 (10:44→22:16)
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
[2019-09-09] MEDS ORDERED: hydrOXYzine PAMOATE 50 MG CAPSULE (FP) PO PRN (12:09)
[2019-09-09] MEDS: ARIPiprazole 5 MG TABLET PO SCH (12:26)
[2019-09-09] MEDS: HALOPERIDOL 5 MG TABLET PO SCH (12:26)
[2019-09-09] MEDS: ESCITALOPRAM OXALATE 20 MG TABLET PO SCH (12:26)
[2019-09-09] MEDS: METHOCARBAMOL 500 MG TABLET PO PRN (14:19)
[2019-09-09] MEDS: ATORVASTATIN CA 10 MG TABLET (FP) PO SCH (22:16)
[2019-09-09] MEDS: traZODone HCL 100 MG TABLET (FP) PO SCH (22:16)
[2019-09-09] MEDS: THIAMINE HCL 100 MG TABLET (FP) PO SCH (22:16)
[2019-09-09] MEDS: MELATONIN 5 MG TABLETS PO SCH (23:07)
[2019-09-10] MEDS: chlordiazePOXIDE HCL 25 MG CAPSULE PO SCH ×4 (05:23→22:12)
[2019-09-10] MEDS ORDERED: METHADONE HCL 10 MG TABLET (FOR DETOX USE ONLY) PO ONE (10:00)
[2019-09-10] MEDS: HALOPERIDOL 5 MG TABLET PO SCH (10:48)
[2019-09-10] MEDS: ARIPiprazole 5 MG TABLET PO SCH (10:48)
[2019-09-10] MEDS: ESCITALOPRAM OXALATE 20 MG TABLET PO SCH (10:48)
[2019-09-10] MEDS: levETIRAcetam 500 MG TABLET (FP) PO SCH ×2 (10:48→22:12)
[2019-09-10] MEDS: cloNIDine HCL 0.1 MG TABLET PO SCH ×2 (10:48→22:12)
[2019-09-10] MEDS: PRENATAL VITAMINS W/ FOLIC ACID TABLET (FP) PO SCH (10:49)
[2019-09-10] MEDS: NICOTINE 21 MG/24 HOURS TOPICAL PATCH TD SCH (10:49)
--- NOTE | 2019-09-10 11:05 | PN ---
[facility] CIWA - CIWA Score Nausea/Vomitin-Mild Nausea/No Vomiting Muscle Tremors: 2 Anxiety: 2 Agitation: 2 Paroxysmal Sweats: No Perspiration Orientation: 0-Oriented Tacttile Disturbances: 1-Very Mild Itch/Numbness Auditory Disturbances: 0-None Visual Disturbances: 0-None Headache: 1-Very Mild CIWA-Ar Total Score: 9 BHS COWS - Scale Resting Pulse: 1= [place] 81-100 Sweatin= No chills or Flushing Restless Observation: 0= Sits Still Pupil Size: 0= Normal to Room Light Bone or Joint Aches: 1= Mild Discomfort Runny Nose/ Eye Tearin= Nasal Congestion GI Upset > 30mins: 1= Stomach Cramp Tremor Observation of Outstretched Hands: 2= Slight Tremor Visible Yawning Observation: 1= 1-2x During Session Anxiety or Irritability: 2=Irritable/Anxious Goose Flesh Skin: 0=Smooth Skin COWS Score: 9 BHS Progress Note (SOAP) Subjective: alert,irritable,anxious,interrupted sleep,pain in the body and back,tremor,nausea Objective: 09/10/19 11:09 Vital Signs Temperature 97.7 F 09/10/19 10:50 Pulse Rate 85 09/10/19 10:50 Respiratory Rate 18 09/10/19 10:50 Blood Pressure 125/76 09/10/19 10:50 O2 Sat by Pulse Oximetry (%) 99 09/10/19 05:13 09/10/19 11:09 Laboratory Last Values WBC 9.6 K/mm3 (4.0-10.0) 09/08/19 13:15 RBC 4.13 M/mm3 (3.60-5.2) 09/08/19 13:15 Hgb 13.4 GM/dL (10.7-15.3) 09/08/19 13:15 Hct 39.6 % (32.4-45.2) 09/08/19 13:15 MCV 96.0 fl (80-96) 09/08/19 13:15 MCH 32.4 pg (25.7-33.7) 09/08/19 13:15 MCHC 33.7 g/dl (32.0-36.0) 09/08/19 13:15 RDW 13.5 % (11.6-15.6) 09/08/19 13:15 Plt Count 207 K/MM3 (134-434) 09/08/19 13:15 MPV 10.5 fl (7.5-11.1) 09/08/19 13:15 Sodium 139 mmol/L (136-145) 09/08/19 13:15 Potassium 3.5 mmol/L (3.5-5.1) 09/08/19 13:15 Chloride 108 mmol/L (98-107) H 09/08/19 13:15 Carbon Dioxide 25 mmol/L (21-32) 09/08/19 13:15 Anion Gap 6 MMOL/L (8-16) L 09/08/19 13:15 BUN 9.2 mg/dL (7-18) 09/08/19 13:15 Creatinine 0.7 mg/dL (0.55-1.3) 09/08/19 13:15 Est GFR (CKD-EPI)AfAm 138.59 09/08/19 13:15 Est GFR (CKD-EPI)NonAf 119.58 09/08/19 13:15 Random Glucose 103 mg/dL (74-106) 09/08/19 13:15 Calcium 9.0 mg/dL (8.5-10.1) 09/08/19 13:15 Total Bilirubin 0.6 mg/dL (0.2-1) 09/08/19 13:15 AST 13 U/L (15-37) L 09/08/19 13:15 ALT 32 U/L (13-61) 09/08/19 13:15 Alkaline Phosphatase 68 U/L (45-117) 09/08/19 13:15 Total Protein 7.4 g/dl (6.4-8.2) 09/08/19 13:15 Albumin 3.7 g/dl (3.4-5.0) 09/08/19 13:15 POC Urine HCG, Qual Negative 09/08/19 13:48 Syphilis Serology Non-reactive (NONREACTIVE) 09/08/19 13:15 COVID-19 (MAY) Not detected (Not Detected) 09/08/19 13:50 HIV Ag/Ab Combo Qual Negative (NEGATIVE) 09/08/19 13:50 Assessment: 09/10/19 11:09 withdrawal symptom Plan: continue detox methadone and librium regimen
[2019-09-10] MEDS: METHOCARBAMOL 500 MG TABLET PO PRN (14:37)
[2019-09-10] MEDS: IBUPROFEN 600 MG TABLET (FP) PO PRN (14:37)
[2019-09-10] MEDS: ATORVASTATIN CA 10 MG TABLET (FP) PO SCH (22:11)
[2019-09-10] MEDS: THIAMINE HCL 100 MG TABLET (FP) PO SCH (22:11)
[2019-09-10] MEDS: traZODone HCL 100 MG TABLET (FP) PO SCH (22:12)
[2019-09-10] MEDS: MELATONIN 5 MG TABLETS PO SCH (22:17)
[2019-09-11] MEDS ORDERED: chlordiazePOXIDE HCL 10 MG CAPSULE PO PRN
[2019-09-11] MEDS: chlordiazePOXIDE HCL 10 MG CAPSULE PO SCH ×4 (05:17→22:28)
[2019-09-11] MEDS ORDERED: METHADONE HCL 5 MG TABLET (FOR DETOX USE ONLY) ONE (09:55)
[2019-09-11] MEDS ORDERED: METHADONE HCL 10 MG TABLET (FOR DETOX USE ONLY) ONE (09:56)
[2019-09-11] MEDS ORDERED: METHADONE (DETOX) 10 MG, METHADONE (DETOX) 5 MG PO ONE (10:00)
[2019-09-11] MEDS: NICOTINE 21 MG/24 HOURS TOPICAL PATCH TD SCH (10:19)
[2019-09-11] MEDS: levETIRAcetam 500 MG TABLET (FP) PO SCH ×2 (10:20→22:28)
[2019-09-11] MEDS: ARIPiprazole 5 MG TABLET PO SCH (10:20)
[2019-09-11] MEDS: ESCITALOPRAM OXALATE 20 MG TABLET PO SCH (10:20)
[2019-09-11] MEDS: HALOPERIDOL 5 MG TABLET PO SCH (10:20)
[2019-09-11] MEDS: cloNIDine HCL 0.1 MG TABLET PO SCH ×2 (10:21→22:28)
[2019-09-11] MEDS: PRENATAL VITAMINS W/ FOLIC ACID TABLET (FP) PO SCH (10:21)
[2019-09-11] MEDS: IBUPROFEN 600 MG TABLET (FP) PO PRN ×2 (10:24→20:42)
--- NOTE | 2019-09-11 12:57 | PN ---
S CIWA - CIWA Score Nausea/Vomitin-No Nausea/No Vomiting Muscle Tremors: 2 Anxiety: 3 Agitation: 3 Paroxysmal Sweats: No Perspiration Orientation: 0-Oriented Tacttile Disturbances: 0-None Auditory Disturbances: 0-None Visual Disturbances: 0-None Headache: 0-None Present CIWA-Ar Total Score: 8 BHS Progress Note (SOAP) Subjective: Complaints of sweats, tremors, anxiety and agitation. Objective: 09/11/19 12:55 Vital Signs 09/11/19 09/11/19 05:12 08:40 Temperature 97.1 F L 97.3 F L Pulse Rate 69 86 Respiratory 20 18 Rate Blood Pressure 107/62 113/69 O2 Sat by Pulse 98 Oximetry (%) Laboratory Last Values WBC 9.6 K/mm3 (4.0-10.0) 09/08/19 13:15 RBC 4.13 M/mm3 (3.60-5.2) 09/08/19 13:15 Hgb 13.4 GM/dL (10.7-15.3) 09/08/19 13:15 Hct 39.6 % (32.4-45.2) 09/08/19 13:15 MCV 96.0 fl (80-96) 09/08/19 13:15 MCH 32.4 pg (25.7-33.7) 09/08/19 13:15 MCHC 33.7 g/dl (32.0-36.0) 09/08/19 13:15 RDW 13.5 % (11.6-15.6) 09/08/19 13:15 Plt Count 207 K/MM3 (134-434) 09/08/19 13:15 MPV 10.5 fl (7.5-11.1) 09/08/19 13:15 Sodium 139 mmol/L (136-145) 09/08/19 13:15 Potassium 3.5 mmol/L (3.5-5.1) 09/08/19 13:15 Chloride 108 mmol/L (98-107) H 09/08/19 13:15 Carbon Dioxide 25 mmol/L (21-32) 09/08/19 13:15 Anion Gap 6 MMOL/L (8-16) L 09/08/19 13:15 BUN 9.2 mg/dL (7-18) 09/08/19 13:15 Creatinine 0.7 mg/dL (0.55-1.3) 09/08/19 13:15 Est GFR (CKD-EPI)AfAm 138.59 09/08/19 13:15 Est GFR (CKD-EPI)NonAf 119.58 09/08/19 13:15 Random Glucose 103 mg/dL (74-106) 09/08/19 13:15 Calcium 9.0 mg/dL (8.5-10.1) 09/08/19 13:15 Total Bilirubin 0.6 mg/dL (0.2-1) 09/08/19 13:15 AST 13 U/L (15-37) L 09/08/19 13:15 ALT 32 U/L (13-61) 09/08/19 13:15 Alkaline Phosphatase 68 U/L (45-117) 09/08/19 13:15 Total Protein 7.4 g/dl (6.4-8.2) 09/08/19 13:15 Albumin 3.7 g/dl (3.4-5.0) 09/08/19 13:15 POC Urine HCG, Qual Negative 09/08/19 13:48 Syphilis Serology Non-reactive (NONREACTIVE) 09/08/19 13:15 COVID-19 (MAY) Not detected (Not Detected) 09/08/19 13:50 HIV Ag/Ab Combo Qual Negative (NEGATIVE) 09/08/19 13:50 Labs noted. Assessment: 09/11/19 12:56 Alert and oriented x3, in no acute respiratory distress. Full ROM, ambulatory on unit. Withdrawal symptoms. Plan: Continue detox protocol.
[2019-09-11] MEDS: traZODone HCL 100 MG TABLET (FP) PO SCH (22:28)
[2019-09-11] MEDS: ATORVASTATIN CA 10 MG TABLET (FP) PO SCH (22:28)
[2019-09-11] MEDS: THIAMINE HCL 100 MG TABLET (FP) PO SCH (22:28)
[2019-09-11] MEDS: MELATONIN 5 MG TABLETS PO SCH (22:29)
[2019-09-12] MEDS: chlordiazePOXIDE HCL 10 MG CAPSULE PO SCH ×2 (05:25→17:53)
[2019-09-12] MEDS ORDERED: METHADONE HCL 10 MG TABLET (FOR DETOX USE ONLY) PO ONE (10:00)
[2019-09-12] MEDS: NICOTINE 21 MG/24 HOURS TOPICAL PATCH TD SCH (10:13)
[2019-09-12] MEDS: levETIRAcetam 500 MG TABLET (FP) PO SCH ×2 (10:13→22:19)
[2019-09-12] MEDS: HALOPERIDOL 5 MG TABLET PO SCH (10:13)
[2019-09-12] MEDS: ESCITALOPRAM OXALATE 20 MG TABLET PO SCH (10:13)
[2019-09-12] MEDS: ARIPiprazole 5 MG TABLET PO SCH (10:13)
[2019-09-12] MEDS: PRENATAL VITAMINS W/ FOLIC ACID TABLET (FP) PO SCH (10:50)
[2019-09-12] MEDS: cloNIDine HCL 0.1 MG TABLET PO SCH ×2 (10:50→22:19)
--- NOTE | 2019-09-12 13:48 | PN ---
[facility] CIWA - CIWA Score Nausea/Vomitin-No Nausea/No Vomiting Muscle Tremors: None Anxiety: 2 Agitation: 2 Paroxysmal Sweats: No Perspiration Orientation: 0-Oriented Tacttile Disturbances: 0-None Auditory Disturbances: 0-None Visual Disturbances: 0-None Headache: 0-None Present CIWA-Ar Total Score: 4 BHS Progress Note (SOAP) Subjective: Interrupted sleep Objective: 09/12/19 13:45 Last Vital Signs Temp Pulse Resp BP Pulse Ox 97.5 F L 78 18 110/53 L 98 09/12/19 12:50 09/12/19 12:50 09/12/19 12:50 09/12/19 12:50 09/12/19 12:50 Laboratory Tests 09/08/19 09/08/19 09/08/19 13:15 13:15 13:15 WBC 9.6 RBC 4.13 Hgb 13.4 Hct 39.6 MCV 96.0 MCH 32.4 MCHC 33.7 RDW 13.5 Plt Count 207 MPV 10.5 Sodium 139 Potassium 3.5 Chloride 108 H Carbon Dioxide 25 Anion Gap 6 L BUN 9.2 Creatinine 0.7 Est GFR (CKD-EPI)AfAm 138.59 Est GFR (CKD-EPI)NonAf 119.58 Random Glucose 103 Calcium 9.0 Total Bilirubin 0.6 AST 13 L ALT 32 Alkaline Phosphatase 68 Total Protein 7.4 Albumin 3.7 POC Urine HCG, Qual Syphilis Serology Non-reactive COVID-19 (MAY) HIV Ag/Ab Combo Qual 09/08/19 09/08/19 09/08/19 13:48 13:50 13:50 WBC RBC Hgb Hct MCV MCH MCHC RDW Plt Count MPV Sodium Potassium Chloride Carbon Dioxide Anion Gap BUN Creatinine Est GFR (CKD-EPI)AfAm Est GFR (CKD-EPI)NonAf Random Glucose Calcium Total Bilirubin AST ALT Alkaline Phosphatase Total Protein Albumin POC Urine HCG, Qual Negative Syphilis Serology COVID-19 (MAY) Not detected HIV Ag/Ab Combo Qual Negative Labs reviewed: Assessment: 09/12/19 13:47 Withdrawal sxs Plan: Continue detox Encouraged PO water intake Patient scheduled for discharge home tomorrow
[2019-09-12] MEDS: traZODone HCL 100 MG TABLET (FP) PO SCH (22:18)
[2019-09-12] MEDS: ATORVASTATIN CA 10 MG TABLET (FP) PO SCH (22:19)
[2019-09-12] MEDS: THIAMINE HCL 100 MG TABLET (FP) PO SCH (22:19)
[2019-09-12] MEDS: MELATONIN 5 MG TABLETS PO SCH (22:20)
[2019-09-13] MEDS ORDERED: chlordiazePOXIDE HCL 10 MG CAPSULE PO ONE (05:00)
[2019-09-13] MEDS ORDERED: METHADONE HCL 5 MG TABLET (FOR DETOX USE ONLY) PO ONE (06:00)
--- NOTE | 2019-09-13 08:28 | DS ---
[facility] Detox Discharge Summary Admission Date: 09/08/19 Discharge Date: 09/13/19 - History Present History: Alcohol Dependence, Cocaine Dependence, Opioid Dependence - Physical Exam Results Vital Signs: Vital Signs Temperature 97.5 F L 09/13/19 05:33 Pulse Rate 68 09/13/19 05:33 Respiratory Rate 18 09/13/19 05:33 Blood Pressure 96/53 L 09/13/19 05:33 O2 Sat by Pulse Oximetry (%) 96 09/13/19 05:33 Pertinent Admission Physical Exam Findings: Vital Signs Temperature 97.5 F L 09/13/19 05:33 Pulse Rate 68 09/13/19 05:33 Respiratory Rate 18 09/13/19 05:33 Blood Pressure 96/53 L 09/13/19 05:33 O2 Sat by Pulse Oximetry (%) 96 09/13/19 05:33 Laboratory Tests 09/08/19 09/08/19 09/08/19 13:15 13:15 13:15 WBC 9.6 RBC 4.13 Hgb 13.4 Hct 39.6 MCV 96.0 MCH 32.4 MCHC 33.7 RDW 13.5 Plt Count 207 MPV 10.5 Sodium 139 Potassium 3.5 Chloride 108 H Carbon Dioxide 25 Anion Gap 6 L BUN 9.2 Creatinine 0.7 Est GFR (CKD-EPI)AfAm 138.59 Est GFR (CKD-EPI)NonAf 119.58 Random Glucose 103 Calcium 9.0 Total Bilirubin 0.6 AST 13 L ALT 32 Alkaline Phosphatase 68 Total Protein 7.4 Albumin 3.7 POC Urine HCG, Qual Syphilis Serology Non-reactive COVID-19 (MAY) HIV Ag/Ab Combo Qual 09/08/19 09/08/19 09/08/19 13:48 13:50 13:50 WBC RBC Hgb Hct MCV MCH MCHC RDW Plt Count MPV Sodium Potassium Chloride Carbon Dioxide Anion Gap BUN Creatinine Est GFR (CKD-EPI)AfAm Est GFR (CKD-EPI)NonAf Random Glucose Calcium Total Bilirubin AST ALT Alkaline Phosphatase Total Protein Albumin POC Urine HCG, Qual Negative Syphilis Serology COVID-19 (MAY) Not detected HIV Ag/Ab Combo Qual Negative aaox3 ambulating no acute distress lungs CTA - Treatment Hospital Course: Detox Protocol Followed, Detoxed Safely, Responded well, Discharged Condition Good, Rehab Referral Accepted - Medication Discharge Medications: Ambulatory Orders hydrOXYzine HCL [Atarax -] 50 mg PO Q6H PRN #90 tablet 01/22/17 Acetaminophen 650 mg PO Q6H PRN 07/30/18 Clonidine HCl 0.1 mg PO BID 07/30/18 Haloperidol [Haldol -] 5 mg PO DAILY #30 tablet 08/03/18 Simvastatin 10 mg PO HS 01/10/19 Aripiprazole [Abilify -] 5 mg PO DAILY #30 tablet 01/15/19 Atorvastatin Ca [Lipitor] 10 mg PO HS #30 tablet 01/15/19 Escitalopram Oxalate [Lexapro -] 20 mg PO DAILY #30 tablet 01/15/19 Gabapentin [Neurontin -] 200 mg PO TID #90 capsule 01/15/19 levETIRAcetam [Keppra -] 500 mg PO BID #60 tablet 01/15/19 traZODone HCL [Desyrel -] 200 mg PO HS #30 tablet 01/15/19 Mirtazapine [Remeron -] 30 mg PO DAILY 09/08/19 - Diagnosis (1) Alcohol dependence with uncomplicated withdrawal Current Visit: Yes Status: Chronic (2) Cocaine dependence Current Visit: Yes Status: Chronic Qualifiers: Substance use status: uncomplicated Qualified Code(s): F14.20 - Cocaine de pendence, uncomplicated (3) IVDU (intravenous drug user) Current Visit: Yes Status: Acute (4) Opioid dependence with withdrawal Current Visit: Yes Status: Acute (5) Substance-induced anxiety disorder Current Visit: Yes Status: Acute (6) Acid reflux Current Visit: Yes Status: Chronic Qualifiers: Esophagitis presence: without esophagitis Qualified Code(s): K21.9 - Gastro-esophageal reflux disease without esophagitis (7) Anxiety Current Visit: Yes Status: Chronic (8) GERD (gastroesophageal reflux disease) Current Visit: Yes Status: Chronic (9) HTN (hypertension) Current Visit: Yes Status: Chronic Qualifiers: Hypertension type: essential hypertension Qualified Code(s): I10 - Essential (primary) hypertension (10) History of bipolar disorder Current Visit: Yes Status: Chronic (11) History of depression Current Visit: Yes Status: Chronic (12) History of schizoaffective disorder Current Visit: Yes Status: Chronic (13) Neuropathy Current Visit: Yes Status: Chronic (14) Nicotine dependence Current Visit: Yes Status: Chronic Qualifiers: Nicotine product type: cigarettes Substance use status: uncomplicated Qualified Code(s): F17.210 - Nicotine dependence, cigarettes, uncomplicated (15) Pre-diabetes Current Visit: Yes Status: Chronic (16) History of seizures Current Visit: Yes Status: Resolved (17) Heroin abuse Current Visit: No Status: Acute (18) Insomnia Current Visit: No Status: Acute (19) Methadone maintenance therapy patient Current Visit: No Status: Acute (20) Opioid dependence, uncomplicated Current Visit: No Status: Acute (21) Substance induced mood disorder Current Visit: No Status: Acute (22) Substance-induced sleep disorder Current Visit: No Status: Acute (23) Chronic back pain Current Visit: No Status: Chronic Qualifiers: Back pain location: low back pain Back pain laterality: bilateral (24) Cocaine dependence, uncomplicated Current Visit: No Status: Chronic (25) Crack cocaine use Current Visit: No Status: Chronic (26) HLD (hyperlipidemia) Current Visit: No Status: Chronic Qualifiers: Hyperlipidemia type: moderate mixed hyperlipidemia not requiring statin therapy Qualified Code(s): E78.2 - Mixed hyperlipidemia (27) PTSD (post-traumatic stress disorder) Current Visit: No Status: Chronic (28) Schizoaffective disorder Current Visit: No Status: Chronic (29) Sedative, hypnotic or anxiolytic abuse with sedative, hypnotic or anxiolytic-induced anxiety disorder Current Visit: No Status: Chronic (30) Seizure disorder Current Visit: No Status: Chronic (31) Bipolar disorder Current Visit: No Status: Ruled-out - AMA Did Patient Leave Against Medical Advice: No
[2019-09-13 09:42] VITALS: BP 127/80; PULSE 89; TEMP 97.3
[2019-09-13] MEDS: PRENATAL VITAMINS W/ FOLIC ACID TABLET (FP) PO SCH (10:21)
[2019-09-13] MEDS: HALOPERIDOL 5 MG TABLET PO SCH (10:21)
[2019-09-13] MEDS: cloNIDine HCL 0.1 MG TABLET PO SCH (10:21)
[2019-09-13] MEDS: ARIPiprazole 5 MG TABLET PO SCH (10:21)
[2019-09-13] MEDS: ESCITALOPRAM OXALATE 20 MG TABLET PO SCH (10:21)
[2019-09-13] MEDS: NICOTINE 21 MG/24 HOURS TOPICAL PATCH TD SCH (10:21)
[2019-09-13] MEDS: levETIRAcetam 500 MG TABLET (FP) PO SCH (10:21)
[2019-09-13] MEDS: IBUPROFEN 600 MG TABLET (FP) PO PRN (12:20)
== END 2019-09-13 12:50 | disposition home or self-care (01) | DRG 773 ==
LOC: YASAS 12:15 → Y6N 13:18
PROVIDERS: ADMIT Allergy & Immunology; ATTEND Allergy & Immunology
PROC: HZ2ZZZZ Detoxification Services for Substance Abuse Treatment (ICD-10-PCS; principal; 2019-09-08)
DX: F10.230 Alcohol dependence with withdrawal, uncomplicated (principal); F11.23 Opioid dependence with withdrawal; F14.20 Cocaine dependence, uncomplicated; F17.210 Nicotine dependence, cigarettes, uncomplicated; F19.280 Other psychoactive substance dependence with psychoactive substance-induced anxiety disorder; F19.282 Other psychoactive substance dependence with psychoactive substance-induced sleep disorder; F19.24 Other psychoactive substance dependence with psychoactive substance-induced mood disorder; F25.9 Schizoaffective disorder, unspecified; F41.8 Other specified anxiety disorders; F43.10 Post-traumatic stress disorder, unspecified; G62.9 Polyneuropathy, unspecified; G47.00 Insomnia, unspecified; I10 Essential (primary) hypertension; E78.2 Mixed hyperlipidemia; K21.9 Gastro-esophageal reflux disease without esophagitis; D64.9 Anemia, unspecified; R73.03 Prediabetes; M54.5 Low back pain; G89.29 Other chronic pain; Z86.69 Personal history of other diseases of the nervous system and sense organs; Z88.0 Allergy status to penicillin; Z91.018 Allergy to other foods; Z91.5 Personal history of self-harm; Z91.410 Personal history of adult physical and sexual abuse
CPT/HCPCS: 36415; 80053; 81025; 85027; 86780; 87389; J0735; Q0162; U0003

== ENCOUNTER 2019-09-20 11:45 | Inpatient (IN) | payer OTHER ==
--- NOTE | 2019-09-20 12:02 | BHS.RME ---
Substance Use & Tx History - Substance Use History Alcohol Substance amount: 1. liters vodka Frequency of use: Daily Substance route: Oral Date of Last Use: 09/20/19 (4am) Heroin Substance amount: 10 bags Frequency of use: Daily Substance route: Inhalation (ex: sniffing or snorting) Date of Last Use: 09/19/19 Cocaine-Crack Substance amount: $200 Frequency of use: Daily Substance route: Smoking Date of Last Use: 09/20/19 Nicotine Substance amount: 2 pack Frequency of use: Daily Substance route: Smoking Date of Last Use: 09/20/19 Physical/Psych/Mental Status - Behavior General Behavior: Increased activity (restlessness, agitation) Eye Contact: Normal - Cooperativeness Cooperativeness: Cooperative - Thinking Thought Processes: Tight, Logical, Goal Directed - Physical Health Problems Is patient presently having any pain?: No Does patient presently have any injuries (include location): No Does patient currently have a fever: No Is patient : No COWS - Scale Resting Pulse: 1= [place] 81-100 Sweatin=Flushed/Facial Moisture Restless Observation: 3= Extraneous Movement Pupil Size: 1= Pupils >than Normal Bone or Joint Aches: 1= Mild Discomfort Runny Nose/ Eye Tearin= Nasal Congestion GI Upset > 30mins: 1= Stomach Cramp Tremor Observation: 1= Tremor [place], Not Seen Yawning Observation: 1= 1-2x During Session Anxiety or Irritability: 2=Irritable/Anxious Goose Flesh Skin: 0=Smooth Skin COWS Score: 14 CIWA Nausea/Vomitin Muscle Tremors: 2 Anxiety: 3 Agitation: 3 Paroxysmal Sweats: 1-Minimal Palms Moist Orientation: 0-Oriented Tacttile Disturbances: 0-None Auditory Disturbances: 0-None Visual Disturbances: 0-None Headache: 1-Very Mild CIWA-Ar Total Score: 12
--- NOTE | 2019-09-20 13:33 | HP ---
COWS - Scale Resting Pulse: 1= [place] 81-100 Sweatin= Beads of Sweat on Face Restless Observation: 1= Difficult to Sit Still Pupil Size: 1= Pupils >than Normal Bone or Joint Aches: 1= Mild Discomfort Runny Nose/ Eye Tearin= None GI Upset > 30mins: 2= Nausea/Diarrhea Tremor Observation: 2= Slight Tremor Visible Yawning Observation: 1= 1-2x During Session Anxiety or Irritability: 2=Irritable/Anxious Goose Flesh Skin: 0=Smooth Skin COWS Score: 14 CIWA Score Nausea/Vomitin Muscle Tremors: 2 Anxiety: 3 Agitation: 3 Paroxysmal Sweats: 1-Minimal Palms Moist Orientation: 0-Oriented Tacttile Disturbances: 0-None Auditory Disturbances: 0-None Visual Disturbances: 0-None Headache: 1-Very Mild CIWA-Ar Total Score: 12 - Admission Criteria [facility] Guidelines: Admission for Medically Managed Detox: Requires at least one of the followin. CIWA greater than 12 2. Seizures within the past 24 hours 3. Delirium tremens within the past 24 hours 4. Hallucinations within the past 24 hours 5. Acute intervention needed for co occurring medical disorder 6. Acute intervention needed for co occurring psychiatric disorder 7. Severe withdrawal that cannot be handled at a lower level of care (continued vomiting, continued diarrhea, abnormal vital signs) requiring intravenous medication and/or fluids 8. Admitting History and Physical - Admission Chief Complaint: Ms. Toscano presents to [facility] stating " I really do need to get sober" History of Present Illness: Ms. Toscano presents to [facility] requesting for detox from opiates and alcohol. hER LAST VISIT Was 09/07 to 09/13/19 for detox, then rehab but did not follow -up. PMH: HTN, Hypercholesterolemia, nuropathy, seizures, chroic low back pain PSH: None Psych: Bipolar, PTSD, Schizophrenia SOCIAL/DPMICILED: Lives in [place]-shares an apartment with a friend Legal: None Substance Use & Tx History - Substance Use History Alcohol Substance amount: 1. liters vodka Frequency of use: Daily Substance route: Oral Date of Last Use: 09/20/19 (4am) First intake: 10yo Seizures + on keppra, admits to eyeopener and blackout Heroin Substance amount: 10 bags Frequency of use: Daily Substance route: Inhalation (ex: sniffing or snorting) Date of Last Use: 09/19/19 First intake: 25yo OD X 2, last was yesterday, used last availble narcan yesterday Cocaine-Crack Substance amount: $200 Frequency of use: Daily Substance route: Smoking Date of Last Use: 09/20/19 First intake: 25yo Nicotine Substance amount: 2 pack Frequency of use: Daily Substance route: Smoking Date of Last Use: 09/20/19 First intake: 13yo History Source: Patient Limitations to Obtaining History: No Limitations - Past Medical History Cardiovascular: Yes: HTN, Hyperlipdemia ...LMP: 06/07/19 Psych: Yes: Bipolar, Schizophrenia - Past Surgical History Past Surgical History: Yes: None - Smoking History Smoking history: Current every day smoker Have you smoked in the past 12 months: Yes Aproximately how many cigarettes per day: 40 - Alcohol/Substance Use Hx Alcohol Use: Yes (1 pint of vodka daily) Number of Drinks Daily: 10 (drinks a litre and a half) History of Substance Use: reports: Heroin Date of Last Use: 09/18/19 (OD yesterday) - Social History Usual Living Arrangement: Yes: Other (with a friend) ADL: Independent Occupation: Unemployed now History of Recent Travel: No Admission [facility] Chief Complaint: Ms. Beard presents to [facility] requesting for detox from opiates and alcohol. Allergies/Adverse Reactions: Allergies Allergy/AdvReac Type Severity Reaction Status Date / Time penicillin G Allergy Severe Difficulty Verified 09/08/19 12:51 Breathing apple Allergy Unknown Verified 09/08/19 12:51 lemon Allergy Unknown Verified 09/08/19 12:51 raspberry Allergy Unknown Verified 09/08/19 12:51 Exam Limitations: No Limitations - Ebola screening Have you traveled outside of the country in the last 21 days: No Have you been sick,other than usual withdrawal symptoms: No Do you have a fever: No - Review of Systems Constitutional: Chills, Diaphoresis, Unintentional Wgt. Loss (45-55 pounds over 3 months) EENT: reports: No Symptoms Reported Respiratory: reports: No Symptoms reported Cardiac: reports: No Symptoms Reported GI: reports: Diarrhea, Nausea Musculoskeletal: reports: No Symptoms Reported Neuro: reports: Tremors Endocrine: reports: No Symptoms Reported Hematology: reports: No Symptoms Reported Psychiatric: reports: Anxious Patient History - Patient Medical History Hx Anemia: Yes Hx Asthma: No Hx Chronic Obstructive Pulmonary Disease (COPD): No Hx Cancer: No Hx Cardiac Disorders: No Hx Congestive Heart Failure: No Hx Hypertension: No Hx Hypercholesterolemia: No Hx Pacemaker: No HX Cerebrovascular Accident: No Hx Seizures: Yes Hx Dementia: No Hx Diabetes: No Hx Gastrointestinal Disorders: Yes (acid reflux) Hx Liver Disease: No Hx Genitourinary Disorders: No Hx Sexually Transmitted Disorders: No Hx Renal Disease (ESRD): No Hx Thyroid Disease: No Hx Human Immunodeficiency Virus (HIV): No Hx Hepatitis C: No Hx Depression: Yes Hx Suicide Attempt: Yes (cut left wrist in 11/2016) Hx Bipolar Disorder: Yes Hx Schizophrenia: Yes - Patient Surgical History Past Surgical History: No Hx Neurologic Surgery: No Hx Cataract Extraction: No Hx Cardiac Surgery: No Hx Lung Surgery: No Hx Breast Surgery: No Hx Breast Biopsy: No Hx Abdominal Surgery: No Hx Appendectomy: No Hx Cholecystectomy: No Hx Genitourinary Surgery: No Hx Section: No Hx Orthopedic Surgery: No Anesthesia Reaction: No - PPD History Date: 08/03/19 Results: 0 mm - Reproductive History Last Menstrual Period: 06/07/19 - Smoking Cessation Smoking history: Current every day smoker Have you smoked in the past 12 months: Yes Aproximately how many cigarettes per day: 40 Cigars Per Day: 40 Hx Chewing Tobacco Use: No Initiated information on smoking cessation: Yes 'Breaking Loose' booklet given: 09/20/19 Admission Physical Exam [facility] - Physical General Appearance: Yes: Within Normal Limits, Nourished, Mild Distress, Anxious HEENTM: Yes: Within Normal Limits, EOMI, Hearing grossly Normal, Normocephalic, Normal Voice, YOLANDA (mildly dilated above normal) Respiratory: Yes: Within Normal Limits, Chest Non-Tender, Lungs Clear, Normal Breath Sounds, No Respiratory Distress, No Accessory Muscle Use Neck: Yes: Within Normal Limits, No masses,lesions,Nodules Breast: Yes: Breast Exam Deferred Cardiology: Yes: Within Normal Limits, Regular Rhythm, Regular Rate, S1, S2 Abdominal: Yes: Within Normal Limits, Normal Bowel Sounds, Non Tender, Flat, Soft Genitourinary: Yes: Within Normal Limits Back: Yes: Normal Inspection, Other (multiple inflmmed acne on upper body: upper back, b/l upper limb, head and neck) Musculoskeletal: Yes: Within Normal Limits Extremities: Yes: Within Normal Limits, Normal Capillary Refill, Normal Inspection, Non-Tender 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: Yes: Fully Oriented, Alert, Motor Strength 5/5 Integumentary: Yes: Within Normal Limits, Normal Color - Diagnostic (1) Alcohol dependence with withdrawal with complication Current Visit: Yes Status: Acute (2) Heroin abuse Current Visit: Yes Status: Acute (3) Chronic back pain Current Visit: Yes Status: Chronic Qualifiers: Back pain location: low back pain Back pain laterality: bilateral (4) Crack cocaine use Current Visit: Yes Status: Chronic (5) HLD (hyperlipidemia) Current Visit: Yes Status: Chronic Qualifiers: Hyperlipidemia type: moderate mixed hyperlipidemia not requiring statin therapy Qualified Code(s): E78.2 - Mixed hyperlipidemia (6) HTN (hypertension) Current Visit: No Status: Chronic Qualifiers: Hypertension type: essential hypertension Qualified Code(s): I10 - Essential (primary) hypertension (7) History of bipolar disorder Current Visit: No Status: Chronic (8) Nicotine dependence Current Visit: Yes Status: Chronic Qualifiers: Nicotine product type: cigarettes Substance use status: uncomplicated Qualified Code(s): F17.210 - Nicotine dependence, cigarettes, uncomplicated (9) PTSD (post-traumatic stress disorder) Current Visit: No Status: Chronic (10) Seizure disorder Current Visit: No Status: Chronic (11) History of seizures Current Visit: No Status: Resolved Comment: Due To Withdrawal. (12) Bipolar disorder Current Visit: No Status: Ruled-out Cleared for Admission [facility] - Detox or Rehab [facility] Level of Care: Medically Managed Detox Regimen/Protocol: Methadone/Librium Screened but not Admitted - Documentation of Visit Screened but not Admitted: No Breathalyzer - Breathalyzer Breathalyzer: 0 Urine Drug Screen - Test Device Lot number: [id number] Expiration date: 10/31/20 - Control Is test valid?: Yes - Results Drug screen NEGATIVE: No Urine drug screen results: THC-Marijuana, ARANZA-Cocaine, MTD-Methadone, BZO- Benzodiazepines Inpatient Rehab Admission - Rehab Decision to Admit Inpatient rehab admission?: No
[2019-09-20] MEDS ORDERED: ACETAMINOPHEN 325 MG TABLET (FP) PO PRN ×2 (14:05)
[2019-09-20] MEDS ORDERED: NICOTINE POLACRILEX 2 MG GUM BUC PRN (14:05)
[2019-09-20] MEDS ORDERED: MENTHOL/PHENOL 1 EACH UD MM PRN (14:05)
[2019-09-20] MEDS ORDERED: cloNIDine HCL 0.1 MG TABLET PO PRN (14:05)
[2019-09-20] MEDS ORDERED: MAGNESIUM CITRATE 300 ML BOTTLE PO PRN (14:05)
[2019-09-20] MEDS ORDERED: MAGNESIUM HYDROX 2400MG/30ML ORAL SUSPENSION 30 ML CUP PO PRN (14:05)
[2019-09-20] MEDS ORDERED: MAG HYDROX/AL HYDROX/SIMETH 30 ML UNIT-DOSE CUP PO PRN (14:05)
[2019-09-20] MEDS ORDERED: ONDANSETRON *ODT* 4 MG TABLET SL PRN (15:15)
[2019-09-20] MEDS ORDERED: METHADONE HCL 10 MG TABLET (FOR DETOX USE ONLY) PO ONE (15:30)
[2019-09-20 15:33] VITALS: BMI 26.8
[2019-09-20] MEDS: GABAPENTIN 100 MG CAPSULE PO SCH ×2 (16:20→22:42)
[2019-09-20] MEDS: PRENATAL VITAMINS W/ FOLIC ACID TABLET (FP) PO SCH (16:20)
[2019-09-20] MEDS: chlordiazePOXIDE HCL 25 MG CAPSULE PO SCH ×2 (16:21→22:42)
[2019-09-20] MEDS: METHOCARBAMOL 500 MG TABLET PO PRN (16:22)
[2019-09-20] MEDS: BISMUTH SUBSALICYLATE 524 MG/30 ML UD PO PRN (16:24)
[2019-09-20] MEDS: NICOTINE 21 MG/24 HOURS TOPICAL PATCH TD SCH (16:52)
[2019-09-20] MEDS: hydrOXYzine PAMOATE 25 MG CAPSULE (FP) PO SCH ×2 (17:05→22:42)
[2019-09-20] MEDS: chlordiazePOXIDE HCL 25 MG CAPSULE PO PRN (18:36)
[2019-09-20] MEDS: THIAMINE HCL 100 MG TABLET (FP) PO SCH (22:42)
[2019-09-20] MEDS: cloNIDine HCL 0.1 MG TABLET PO SCH (22:42)
[2019-09-20] MEDS: MELATONIN 5 MG TABLETS PO SCH (22:42)
[2019-09-20] MEDS: ATORVASTATIN CA 10 MG TABLET (FP) PO SCH (22:42)
[2019-09-20] MEDS: levETIRAcetam 500 MG TABLET (FP) PO SCH (22:42)
[2019-09-21] MEDS: GABAPENTIN 100 MG CAPSULE PO SCH ×3 (05:50→22:16)
[2019-09-21] MEDS: chlordiazePOXIDE HCL 25 MG CAPSULE PO SCH ×4 (05:50→22:16)
[2019-09-21] MEDS: hydrOXYzine PAMOATE 25 MG CAPSULE (FP) PO SCH ×2 (05:50→09:40)
--- NOTE | 2019-09-21 08:11 | PN ---
Teaching Attending Note Name of Resident: Barbara Hunt ATTENDING PHYSICIAN STATEMENT I saw and evaluated the patient. I reviewed the resident's note and discussed the case with the resident. I agree with the resident's findings and plan as documented. SUBJECTIVE: OBJECTIVE: ASSESSMENT AND PLAN: 1. Alcohol use disorder 2. Opioid use disorder Plan 1. Librium protocol 2. Methadone protocol
[2019-09-21] MEDS ORDERED: METHADONE HCL 10 MG TABLET (FOR DETOX USE ONLY) ONE (09:38)
[2019-09-21] MEDS ORDERED: METHADONE HCL 5 MG TABLET (FOR DETOX USE ONLY) ONE (09:38)
[2019-09-21] MEDS: levETIRAcetam 500 MG TABLET (FP) PO SCH ×2 (09:39→22:17)
[2019-09-21] MEDS: PRENATAL VITAMINS W/ FOLIC ACID TABLET (FP) PO SCH (09:40)
[2019-09-21 09:58] LABS: HEMATOCRIT 41.7 % (32.4-45.2); MCH 32.1 pg (25.7-33.7); MCHC 33.5 g/dl (32.0-36.0); MEAN CELL VOLUME 95.8 fl (80-96); MEAN PLT VOLUME 11.2 fl (7.5-11.1); PLATELET COUNT 219 K/MM3 (134-434); RBC 4.35 M/mm3 (3.60-5.2); RDW 13.9 % (11.6-15.6); WHITE BLOOD COUNT 11.1 K/mm3 (4.0-10.0)
[2019-09-21] MEDS ORDERED: METHADONE (DETOX) 20 MG, METHADONE (DETOX) 5 MG PO ONE (10:00)
[2019-09-21 10:37] LABS: ALBUMIN 4.4 g/dl (3.4-5.0); BILIRUBIN,TOTAL 0.7 mg/dL (0.2-1); BLOOD UREA NITROGEN 8.6 mg/dL (7-18); POTASSIUM 3.3 mmol/L (3.5-5.1); TOT PROT 8.3 g/dl (6.4-8.2)
[2019-09-21] MEDS: cloNIDine HCL 0.1 MG TABLET PO SCH ×2 (10:55→22:14)
[2019-09-21] MEDS: NICOTINE 21 MG/24 HOURS TOPICAL PATCH TD SCH (10:55)
[2019-09-21] MEDS ORDERED: LOPERAMIDE HCL 2 MG CAPSULE PO ONE (11:19)
[2019-09-21] MEDS ORDERED: ONDANSETRON *ODT* 4 MG TABLET SL ONE (11:19)
[2019-09-21] MEDS: IBUPROFEN 400 MG TABLET (FP) PO PRN ×2 (11:25→17:55)
--- NOTE | 2019-09-21 11:27 | PN ---
S CIWA - CIWA Score Nausea/Vomitin Muscle Tremors: 2 Anxiety: 3 Agitation: 2 Paroxysmal Sweats: No Perspiration Orientation: 0-Oriented Tacttile Disturbances: 0-None Auditory Disturbances: 0-None Visual Disturbances: 0-None Headache: 2-Mild CIWA-Ar Total Score: 11 S COWS - Scale Resting Pulse: 0= [place] 80 or Below Sweatin= No chills or Flushing Restless Observation: 0= Sits Still Pupil Size: 1= Pupils >than Normal Bone or Joint Aches: 1= Mild Discomfort Runny Nose/ Eye Tearin= None GI Upset > 30mins: 2= Nausea/Diarrhea Tremor Observation of Outstretched Hands: 2= Slight Tremor Visible Yawning Observation: 0= None Anxiety or Irritability: 2=Irritable/Anxious Goose Flesh Skin: 3=Piloerection COWS Score: 11 [facility] Progress Note (SOAP) Subjective: 28 years old female admitted on 09/20/19 for alcohol and opiate withdrawal sx management treating with librium and methadone detox regiment reports nausea diarrhea after breakfast robaxin 750mg po x 1 imodium 4 mg po x 1 zofran 8mg sl x 1 discussing medication assisted treatment program Objective: 09/21/19 11:24 Vital Signs - 24 hr 09/20/19 09/20/19 09/20/19 15:03 15:25 15:54 Temperature 98.1 F 97.3 F L Pulse Rate 107 H 73 Respiratory 18 18 Rate Blood Pressure 135/82 128/78 O2 Sat by Pulse 100 100 Oximetry (%) 09/20/19 09/21/19 09/21/19 20:21 06:29 06:30 Temperature 97.5 F L 97.7 F Pulse Rate 76 61 Respiratory 18 16 Rate Blood Pressure 109/71 102/61 O2 Sat by Pulse 100 99 99 Oximetry (%) 09/21/19 08:55 Temperature 96.8 F L Pulse Rate 69 Respiratory 18 Rate Blood Pressure 93/55 L O2 Sat by Pulse Oximetry (%) Laboratory Tests 09/20/19 09/21/19 09/21/19 12:33 07:50 07:50 WBC 11.1 H RBC 4.35 Hgb 14.0 Hct 41.7 MCV 95.8 MCH 32.1 MCHC 33.5 RDW 13.9 Plt Count 219 MPV 11.2 H Sodium 141 Potassium 3.3 L Chloride 110 H Carbon Dioxide 20 L Anion Gap 11 BUN 8.6 Creatinine 1.0 Est GFR (CKD-EPI)AfAm 90.04 Est GFR (CKD-EPI)NonAf 77.69 Random Glucose 76 Calcium 9.0 Total Bilirubin 0.7 AST 15 ALT 37 Alkaline Phosphatase 65 Total Protein 8.3 H Albumin 4.4 POC Urine HCG, Qual Negative lab noted low K+ K+ 40mEq x 1 20meq x 1 09/21/19 11:26 repeat K+ Assessment: 09/21/19 11:27 alcohol and opiate withdrawal hypokalemia Plan: librium and methadone regiments potassium 40meq x 1 + 20 meq x 1
[2019-09-21] MEDS ORDERED: METHOCARBAMOL 750 MG TABLET PO ONE (11:30)
[2019-09-21] MEDS: hydrOXYzine PAMOATE 50 MG CAPSULE (FP) PO SCH ×3 (12:30→23:02)
[2019-09-21] MEDS ORDERED: POTASSIUM CHLORIDE ORAL LIQUID 20 MEQ/15 ML PO ONE ×2 (12:30→16:30)
[2019-09-21] MEDS: METHOCARBAMOL 500 MG TABLET PO PRN ×2 (12:31→17:55)
--- NOTE | 2019-09-21 13:15 | EKG ---
Test Reason : Blood Pressure : / mmHG Vent. Rate : 089 BPM Atrial Rate : 089 BPM P-R Int : 166 ms QRS Dur : 084 ms QT Int : 386 ms P-R-T Axes : 070 065 061 degrees QTc Int : 469 ms NORMAL SINUS RHYTHM POSSIBLE LEFT ATRIAL ENLARGEMENT BORDERLINE ECG WHEN COMPARED WITH ECG OF 23-FEB-2019 12:47, NO SIGNIFICANT CHANGE WAS FOUND Confirmed by Williams Llamas ([id number]) on 09/21/2019 1:14:55 PM Referred By: Confirmed By:Williams Llamas
[2019-09-21] MEDS: chlordiazePOXIDE HCL 25 MG CAPSULE PO PRN ×2 (14:59→20:18)
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
[2019-09-21] MEDS: ATORVASTATIN CA 10 MG TABLET (FP) PO SCH (22:17)
[2019-09-21] MEDS: traZODone HCL 100 MG TABLET (FP) PO SCH (22:17)
[2019-09-21] MEDS: THIAMINE HCL 100 MG TABLET (FP) PO SCH (22:17)
[2019-09-21] MEDS: MELATONIN 5 MG TABLETS PO SCH (22:18)
[2019-09-22] MEDS: hydrOXYzine PAMOATE 50 MG CAPSULE (FP) PO SCH (05:47)
[2019-09-22] MEDS: GABAPENTIN 100 MG CAPSULE PO SCH ×3 (05:47→22:10)
[2019-09-22] MEDS: chlordiazePOXIDE HCL 25 MG CAPSULE PO SCH ×4 (05:47→22:09)
[2019-09-22] MEDS ORDERED: hydrOXYzine PAMOATE 50 MG CAPSULE (FP) PO PRN (09:34)
--- NOTE | 2019-09-22 09:34 | PN ---
S CIWA - CIWA Score Nausea/Vomitin-Mild Nausea/No Vomiting Muscle Tremors: 1-None Visible, but [place] Anxiety: 1-Mildly Anxious Agitation: 4-Moderately Restless Paroxysmal Sweats: 1-Minimal Palms Moist Orientation: 0-Oriented Tacttile Disturbances: 0-None Auditory Disturbances: 0-None Visual Disturbances: 0-None Headache: 0-None Present CIWA-Ar Total Score: 8 S COWS - Scale Resting Pulse: 0= [place] 80 or Below Sweatin= Chills/Flushing Restless Observation: 0= Sits Still Pupil Size: 1= Pupils >than Normal Bone or Joint Aches: 0= None Runny Nose/ Eye Tearin= None GI Upset > 30mins: 2= Nausea/Diarrhea Tremor Observation of Outstretched Hands: 2= Slight Tremor Visible Yawning Observation: 0= None Anxiety or Irritability: 2=Irritable/Anxious Goose Flesh Skin: 0=Smooth Skin COWS Score: 8 S Progress Note (SOAP) Subjective: 28 years old female admitted on 09/20/19 for alcohol and opiate withdrawal sx management treating with librium and methadone detox regiments seen by psychiatrist ekg read by dr padron Vital Signs - 24 hr 09/21/19 09/21/19 09/21/19 12:52 16:38 20:34 Temperature 97.3 F L 97.3 F L 97.3 F L Pulse Rate 68 58 L 105 H Respiratory 18 18 20 Rate Blood Pressure 104/68 95/55 L 95/65 O2 Sat by Pulse 98 98 100 Oximetry (%) 09/22/19 09/22/19 09/22/19 06:18 06:19 08:50 Temperature 97.2 F L 98.0 F Pulse Rate 67 71 Respiratory 18 18 Rate Blood Pressure 101/60 99/61 O2 Sat by Pulse 96 96 Oximetry (%) low bp set clonidine parameter to avoid rebound hypertension Objective: 09/22/19 09:37 Vital Signs - 24 hr 09/21/19 09/21/19 09/21/19 12:52 16:38 20:34 Temperature 97.3 F L 97.3 F L 97.3 F L Pulse Rate 68 58 L 105 H Respiratory 18 18 20 Rate Blood Pressure 104/68 95/55 L 95/65 O2 Sat by Pulse 98 98 100 Oximetry (%) 09/22/19 09/22/19 09/22/19 06:18 06:19 08:50 Temperature 97.2 F L 98.0 F Pulse Rate 67 71 Respiratory 18 18 Rate Blood Pressure 101/60 99/61 O2 Sat by Pulse 96 96 Oximetry (%) Laboratory Tests 09/20/19 09/21/19 09/21/19 12:33 07:50 07:50 WBC 11.1 H RBC 4.35 Hgb 14.0 Hct 41.7 MCV 95.8 MCH 32.1 MCHC 33.5 RDW 13.9 Plt Count 219 MPV 11.2 H Sodium Potassium Chloride Carbon Dioxide Anion Gap BUN Creatinine Est GFR (CKD-EPI)AfAm Est GFR (CKD-EPI)NonAf Random Glucose Calcium Total Bilirubin AST ALT Alkaline Phosphatase Total Protein Albumin POC Urine HCG, Qual Negative Syphilis Serology Non-reactive 09/21/19 07:50 WBC RBC Hgb Hct MCV MCH MCHC RDW Plt Count MPV Sodium 141 Potassium 3.3 L Chloride 110 H Carbon Dioxide 20 L Anion Gap 11 BUN 8.6 Creatinine 1.0 Est GFR (CKD-EPI)AfAm 90.04 Est GFR (CKD-EPI)NonAf 77.69 Random Glucose 76 Calcium 9.0 Total Bilirubin 0.7 AST 15 ALT 37 Alkaline Phosphatase 65 Total Protein 8.3 H Albumin 4.4 POC Urine HCG, Qual Syphilis Serology 09/22/19 09:37 repeat K+ pending Assessment: 09/22/19 09:37 alcohol and opiate withdrawal Plan: librium and methadone regiments
[2019-09-22] MEDS ORDERED: METHADONE HCL 10 MG TABLET (FOR DETOX USE ONLY) PO ONE (10:00)
[2019-09-22] MEDS: NICOTINE 21 MG/24 HOURS TOPICAL PATCH TD SCH (10:36)
[2019-09-22] MEDS: ARIPiprazole 5 MG TABLET PO SCH (10:36)
[2019-09-22] MEDS: ESCITALOPRAM OXALATE 10 MG TABLET PO SCH (10:37)
[2019-09-22] MEDS: cloNIDine HCL 0.1 MG TABLET PO SCH ×2 (10:38→22:11)
[2019-09-22] MEDS: levETIRAcetam 500 MG TABLET (FP) PO SCH ×2 (10:38→22:10)
[2019-09-22] MEDS: PRENATAL VITAMINS W/ FOLIC ACID TABLET (FP) PO SCH (10:39)
[2019-09-22] MEDS: BISMUTH SUBSALICYLATE 524 MG/30 ML UD PO PRN (10:40)
--- NOTE | 2019-09-22 13:12 | PN ---
[facility] Progress Note Note: Psychiatry Attending's note : Approached by the patient. Reason : request for continuation of haldol. " You can stop the abilify but I need my haldol." Medications discussed with patient. Request validated. Haldol 5 mg po hs + cogentin 1 mg po hs : added to regimen. Ms Toscano is agreeable with this plan of care.
[2019-09-22] MEDS: chlordiazePOXIDE HCL 25 MG CAPSULE PO PRN (13:22)
[2019-09-22] MEDS: IBUPROFEN 400 MG TABLET (FP) PO PRN (14:09)
[2019-09-22] MEDS: THIAMINE HCL 100 MG TABLET (FP) PO SCH (22:09)
[2019-09-22] MEDS: traZODone HCL 100 MG TABLET (FP) PO SCH (22:10)
[2019-09-22] MEDS: HALOPERIDOL 5 MG TABLET PO SCH (22:10)
[2019-09-22] MEDS: BENZTROPINE MESYLATE 1 MG TABLET PO SCH (22:10)
[2019-09-22] MEDS: ATORVASTATIN CA 10 MG TABLET (FP) PO SCH (22:10)
[2019-09-22] MEDS: MELATONIN 5 MG TABLETS PO SCH (22:11)
[2019-09-23] MEDS: GABAPENTIN 100 MG CAPSULE PO SCH ×3 (06:06→22:06)
[2019-09-23] MEDS: chlordiazePOXIDE HCL 10 MG CAPSULE PO SCH ×4 (06:06→22:06)
[2019-09-23] MEDS ORDERED: METHADONE HCL 5 MG TABLET (FOR DETOX USE ONLY) ONE (08:54)
[2019-09-23] MEDS ORDERED: METHADONE HCL 10 MG TABLET (FOR DETOX USE ONLY) ONE (08:54)
--- NOTE | 2019-09-23 08:54 | PN ---
S CIWA - CIWA Score Nausea/Vomitin-Mild Nausea/No Vomiting Muscle Tremors: 1-None Visible, but [place] Anxiety: 1-Mildly Anxious Agitation: 0-Normal Activity Paroxysmal Sweats: 1-Minimal Palms Moist Orientation: 0-Oriented Tacttile Disturbances: 0-None Auditory Disturbances: 0-None Visual Disturbances: 1-Very Mild Sensitivity Headache: 1-Very Mild CIWA-Ar Total Score: 6 BHS COWS - Scale Resting Pulse: 0= [place] 80 or Below Sweatin= Chills/Flushing Restless Observation: 0= Sits Still Pupil Size: 1= Pupils >than Normal Bone or Joint Aches: 1= Mild Discomfort Runny Nose/ Eye Tearin= None GI Upset > 30mins: 1= Stomach Cramp Tremor Observation of Outstretched Hands: 1= Tremor [place], Not Seen Yawning Observation: 0= None Anxiety or Irritability: 1=Feels Anxious/Irritable Goose Flesh Skin: 0=Smooth Skin COWS Score: 6 S Progress Note (SOAP) Subjective: 28 years old female admitted on 09/20/19 for alcohol and opiate withdrawal treating with librium and methadone detox regiment seen by psychiatrist lee stokes and conrado history of seizure disorder treated with keppra ms chaim is been detox well feeling tired prefers to stay in bed resting Objective: 09/23/19 09:04 Vital Signs - 24 hr 09/22/19 09/22/19 09/22/19 12:34 16:27 20:30 Temperature 97.7 F 97.5 F L 97.5 F L Pulse Rate 75 73 63 Respiratory 18 18 18 Rate Blood Pressure 105/64 92/62 105/72 O2 Sat by Pulse 97 99 Oximetry (%) 09/23/19 06:19 Temperature 97.9 F Pulse Rate 58 L Respiratory 18 Rate Blood Pressure 103/70 O2 Sat by Pulse 99 Oximetry (%) bp within acceptable range Laboratory Tests 09/20/19 09/21/19 09/21/19 12:33 07:50 07:50 WBC 11.1 H RBC 4.35 Hgb 14.0 Hct 41.7 MCV 95.8 MCH 32.1 MCHC 33.5 RDW 13.9 Plt Count 219 MPV 11.2 H Sodium Potassium Chloride Carbon Dioxide Anion Gap BUN Creatinine Est GFR (CKD-EPI)AfAm Est GFR (CKD-EPI)NonAf Random Glucose Calcium Total Bilirubin AST ALT Alkaline Phosphatase Total Protein Albumin POC Urine HCG, Qual Negative Syphilis Serology Non-reactive 09/21/19 09/22/19 07:50 07:45 WBC RBC Hgb Hct MCV MCH MCHC RDW Plt Count MPV Sodium 141 Potassium 3.3 L 4.0 Chloride 110 H Carbon Dioxide 20 L Anion Gap 11 BUN 8.6 Creatinine 1.0 Est GFR (CKD-EPI)AfAm 90.04 Est GFR (CKD-EPI)NonAf 77.69 Random Glucose 76 Calcium 9.0 Total Bilirubin 0.7 AST 15 ALT 37 Alkaline Phosphatase 65 Total Protein 8.3 H Albumin 4.4 POC Urine HCG, Qual Syphilis Serology potassium supplement successfully increase K+ serum level to 4.0 09/23/19 09:06 Assessment: 09/23/19 09:05 alcohol and opiate withdrawal Plan: librium and methadone regiments
[2019-09-23] MEDS ORDERED: METHADONE (DETOX) 10 MG, METHADONE (DETOX) 5 MG PO ONE (10:00)
[2019-09-23] MEDS: NICOTINE 21 MG/24 HOURS TOPICAL PATCH TD SCH (10:29)
[2019-09-23] MEDS: levETIRAcetam 500 MG TABLET (FP) PO SCH ×2 (10:30→22:07)
[2019-09-23] MEDS: ESCITALOPRAM OXALATE 10 MG TABLET PO SCH (10:30)
[2019-09-23] MEDS: cloNIDine HCL 0.1 MG TABLET PO SCH ×2 (10:31→22:05)
[2019-09-23] MEDS: ARIPiprazole 5 MG TABLET PO SCH (10:31)
[2019-09-23] MEDS: PRENATAL VITAMINS W/ FOLIC ACID TABLET (FP) PO SCH (10:47)
[2019-09-23] MEDS: chlordiazePOXIDE HCL 10 MG CAPSULE PO PRN ×2 (12:17→19:25)
[2019-09-23] MEDS: IBUPROFEN 400 MG TABLET (FP) PO PRN (17:24)
[2019-09-23] MEDS: BENZTROPINE MESYLATE 1 MG TABLET PO SCH (22:06)
[2019-09-23] MEDS: THIAMINE HCL 100 MG TABLET (FP) PO SCH (22:06)
[2019-09-23] MEDS: HALOPERIDOL 5 MG TABLET PO SCH (22:06)
[2019-09-23] MEDS: MELATONIN 5 MG TABLETS PO SCH (22:07)
[2019-09-23] MEDS: traZODone HCL 100 MG TABLET (FP) PO SCH (22:07)
[2019-09-23] MEDS: ATORVASTATIN CA 10 MG TABLET (FP) PO SCH (22:07)
[2019-09-24] MEDS ORDERED: chlordiazePOXIDE HCL 10 MG CAPSULE PO SCH (05:00)
[2019-09-24] MEDS: GABAPENTIN 100 MG CAPSULE PO SCH ×2 (05:53→13:58)
[2019-09-24] MEDS ORDERED: METHADONE HCL 10 MG TABLET (FOR DETOX USE ONLY) PO ONE (10:00)
[2019-09-24] MEDS: ESCITALOPRAM OXALATE 10 MG TABLET PO SCH (10:26)
[2019-09-24] MEDS: NICOTINE 21 MG/24 HOURS TOPICAL PATCH TD SCH (10:26)
[2019-09-24] MEDS: PRENATAL VITAMINS W/ FOLIC ACID TABLET (FP) PO SCH (10:26)
[2019-09-24] MEDS: cloNIDine HCL 0.1 MG TABLET PO SCH (10:27)
[2019-09-24] MEDS: ARIPiprazole 5 MG TABLET PO SCH (10:27)
[2019-09-24] MEDS: levETIRAcetam 500 MG TABLET (FP) PO SCH (10:27)
--- NOTE | 2019-09-24 11:19 | PN ---
[facility] CIWA - CIWA Score Nausea/Vomitin-No Nausea/No Vomiting Muscle Tremors: None Anxiety: 0-No Anxiety, at Ease Agitation: 0-Normal Activity Paroxysmal Sweats: No Perspiration Orientation: 1-Uncertain about Date Tacttile Disturbances: 0-None Auditory Disturbances: 0-None Visual Disturbances: 0-None Headache: 0-None Present CIWA-Ar Total Score: 1 [facility] COWS - Scale Resting Pulse: 0= [place] 80 or Below Sweatin= No chills or Flushing Restless Observation: 0= Sits Still Pupil Size: 0= Normal to Room Light Bone or Joint Aches: 1= Mild Discomfort Runny Nose/ Eye Tearin= None GI Upset > 30mins: 0= None Tremor Observation of Outstretched Hands: 0= None Yawning Observation: 0= None Anxiety or Irritability: 1=Feels Anxious/Irritable Goose Flesh Skin: 0=Smooth Skin COWS Score: 2 [facility] Progress Note (SOAP) Subjective: Feels well Chronic low back pain, chronic anxiety Objective: 09/24/19 11:15 PE Gnl: WDWN, in no distress Mentation: nl Motor: moves well Gait steady Laboratory Tests 09/20/19 09/20/19 09/21/19 12:33 15:33 07:50 WBC RBC Hgb Hct MCV MCH MCHC RDW Plt Count MPV Sodium Potassium Chloride Carbon Dioxide Anion Gap BUN Creatinine Est GFR (CKD-EPI)AfAm Est GFR (CKD-EPI)NonAf Random Glucose Calcium Total Bilirubin AST ALT Alkaline Phosphatase Total Protein Albumin POC Urine HCG, Qual Negative Syphilis Serology Non-reactive COVID-19 (MAY) 09/21/19 09/21/19 09/22/19 07:50 07:50 07:45 WBC 11.1 H RBC 4.35 Hgb 14.0 Hct 41.7 MCV 95.8 MCH 32.1 MCHC 33.5 RDW 13.9 Plt Count 219 MPV 11.2 H Sodium 141 Potassium 3.3 L 4.0 Chloride 110 H Carbon Dioxide 20 L Anion Gap 11 BUN 8.6 Creatinine 1.0 Est GFR (CKD-EPI)AfAm 90.04 Est GFR (CKD-EPI)NonAf 77.69 Random Glucose 76 Calcium 9.0 Total Bilirubin 0.7 AST 15 ALT 37 Alkaline Phosphatase 65 Total Protein 8.3 H Albumin 4.4 POC Urine HCG, Qual Syphilis Serology COVID-19 (MAY) Home Medication List Medication Instructions Recorded Confirmed Type Acetaminophen 650 mg PO Q6H PRN 07/30/18 09/20/19 History Clonidine HCl 0.1 mg PO BID 07/30/18 09/20/19 History Simvastatin 10 mg PO HS 01/10/19 09/20/19 History Mirtazapine [Remeron -] 30 mg PO DAILY 09/08/19 09/20/19 History Active Medications Generic Name Dose Route Start Last Admin Trade Name Freq PRN Reason Stop Dose Admin Acetaminophen 650 mg 09/20/19 14:05 09/23/19 15:20 Tylenol - PO 650 mg Q6H PRN Administration PAIN LEVEL 4 - 6 Acetaminophen 650 mg 09/20/19 14:05 Tylenol - PO Q6H PRN FEVER Al Hydroxide/Mg Hydroxide 30 ml 09/20/19 14:05 Mylanta Oral Suspension - PO Q6H PRN DYSPEPSIA Aripiprazole 5 mg 09/22/19 10:00 09/24/19 10:27 Abilify PO 5 mg DAILY RANJITH Administration Atorvastatin Calcium 10 mg 09/20/19 22:00 09/23/19 22:07 Lipitor - PO 10 mg HS RANJITH Administration Benztropine Mesylate 1 mg 09/22/19 22:00 09/23/19 22:06 Cogentin - PO 1 mg HS RANJITH Administration Bismuth Subsalicylate 524 mg 09/20/19 14:05 09/22/19 10:40 Pepto-Bismol - PO 524 mg Q1H PRN Administration DIARRHEA Chlordiazepoxide HCl 10 mg 09/24/19 05:00 09/24/19 05:52 Librium - PO 09/24/19 17:01 10 mg Q12H RANJITH Administration Chlordiazepoxide HCl 10 mg 09/25/19 05:00 Librium - PO 09/25/19 05:01 ONCE@0500 ONE Clonidine 0.1 mg 09/22/19 10:00 09/24/19 10:27 Catapres - PO Not Given BID RANJITH Escitalopram Oxalate 20 mg 09/22/19 10:00 09/24/19 10:26 Lexapro - PO 20 mg DAILY RANJITH Administration Eucalyptus/Menthol/Phenol/Sorbitol 1 each 09/20/19 14:05 Cepastat Lozenge - MM 09/26/19 14:06 Q4H PRN SORE THROAT Gabapentin 200 mg 09/20/19 15:00 09/24/19 05:53 Neurontin - PO 200 mg TID RANJITH Administration Haloperidol 5 mg 09/22/19 22:00 09/23/19 22:06 Haldol - PO 5 mg HS RANJITH Administration Hydroxyzine Pamoate 50 mg 09/22/19 09:34 Vistaril - PO Q6H PRN ANXIETY Ibuprofen 800 mg 09/23/19 17:00 09/23/19 17:24 Motrin - PO 800 mg Q12H PRN Administration PAIN LEVEL 4 - 6 Levetiracetam 500 mg 09/20/19 22:00 09/24/19 10:27 Keppra - PO 500 mg BID RANJITH Administration Magnesium Citrate 300 ml 09/20/19 14:05 Citroma - PO Q48H PRN CONSTIPATION Magnesium Hydroxide 30 ml 09/20/19 14:05 Milk Of Magnesia - PO PRN PRN CONSTIPATION Melatonin 5 mg 09/20/19 22:00 09/23/19 22:07 Melatonin PO 5 mg HS RANJITH Administration Methadone HCl 5 mg 09/25/19 06:00 Dolophine - PO 09/25/19 06:01 ONCE@0600 ONE Methocarbamol 500 mg 09/20/19 14:05 09/21/19 17:55 Robaxin - PO 09/26/19 14:06 500 mg Q6H PRN Administration MUSCLE SPASMS Nicotine 21 mg 09/20/19 15:30 09/24/19 10:26 Nicoderm Patch - TD 21 mg DAILY RANJITH Administration Nicotine Polacrilex 2 mg 09/20/19 14:05 Nicorette Gum - BUC Q2H PRN NICOTINE REPLACEMENT RX Ondansetron HCl 4 mg 09/20/19 15:15 09/20/19 16:24 Zofran Odt - SL 4 mg TID PRN Administration NAUSEA &/OR VOMITTING Multivit/Folic Acid/Iron 1 tab 09/20/19 14:15 09/24/19 10:26 Vitamins (Sjr) - PO 1 tab DAILY RANJITH Administration Thiamine HCl 100 mg 09/20/19 22:00 09/23/19 22:06 Vitamin B1 - PO 100 mg HS RANJITH Administration Trazodone HCl 100 mg 09/21/19 22:00 09/23/19 22:07 Desyrel - PO 100 mg HS RANJITH Administration Vital Signs Temperature 97.6 F 09/24/19 08:45 Pulse Rate 72 09/24/19 08:45 Respiratory Rate 18 09/24/19 08:45 Blood Pressure 107/81 09/24/19 08:45 O2 Sat by Pulse Oximetry (%) 96 09/24/19 05:45 Assessment: 09/24/19 11:14 28 years old female admitted on 09/20/19 for alcohol and opiate withdrawal treating with librium and methadone detox regiment seen by psychiatrist lee stokes and conrado history of seizure disorder treated with keppra 1. Alcohol use disorder 2. Opiod use disorder 3. Seizure disorder 4. Substance induced mood disorder 5. PTSD Plan: 1. Librium detox, projected completion tomorrow, may go to [facility] if bed available today 2. Methadone detox 3. Pts COVID was unable to be run: due to the presence of PCR inhibitors, Pt reswabbed by this provider, and specimen given to installation and service technician Emily.
[2019-09-24 14:04] VITALS: BP 126/72; PULSE 84; TEMP 96.4
--- NOTE | 2019-09-24 14:06 | DS ---
[facility] Detox Discharge Summary Admission Date: 09/20/19 - History Present History: Alcohol Dependence, Opioid Dependence - Physical Exam Results Vital Signs: Vital Signs Temperature 96.4 F L 09/24/19 12:35 Pulse Rate 84 09/24/19 12:35 Respiratory Rate 18 09/24/19 12:35 Blood Pressure 126/72 09/24/19 12:35 O2 Sat by Pulse Oximetry (%) 97 09/24/19 12:35 Pertinent Admission Physical Exam Findings: PE Gnl: WDWN, in no distress Mentation: nl Motor: moves well Gait steady Laboratory Tests 09/20/19 09/20/19 09/21/19 12:33 15:33 07:50 WBC RBC Hgb Hct MCV MCH MCHC RDW Plt Count MPV Sodium Potassium Chloride Carbon Dioxide Anion Gap BUN Creatinine Est GFR (CKD-EPI)AfAm Est GFR (CKD-EPI)NonAf Random Glucose Calcium Total Bilirubin AST ALT Alkaline Phosphatase Total Protein Albumin POC Urine HCG, Qual Negative Syphilis Serology Non-reactive COVID-19 (MAY) 09/21/19 09/21/19 09/22/19 07:50 07:50 07:45 WBC 11.1 H RBC 4.35 Hgb 14.0 Hct 41.7 MCV 95.8 MCH 32.1 MCHC 33.5 RDW 13.9 Plt Count 219 MPV 11.2 H Sodium 141 Potassium 3.3 L 4.0 Chloride 110 H Carbon Dioxide 20 L Anion Gap 11 BUN 8.6 Creatinine 1.0 Est GFR (CKD-EPI)AfAm 90.04 Est GFR (CKD-EPI)NonAf 77.69 Random Glucose 76 Calcium 9.0 Total Bilirubin 0.7 AST 15 ALT 37 Alkaline Phosphatase 65 Total Protein 8.3 H Albumin 4.4 POC Urine HCG, Qual Syphilis Serology COVID-19 (MAY) Home Medication List Medication Instructions Recorded Confirmed Type Acetaminophen 650 mg PO Q6H PRN 07/30/18 09/20/19 History Clonidine HCl 0.1 mg PO BID 07/30/18 09/20/19 History Simvastatin 10 mg PO HS 01/10/19 09/20/19 History Mirtazapine [Remeron -] 30 mg PO DAILY 09/08/19 09/20/19 History Active Medications Generic Name Dose Route Start Last Admin Trade Name Freq PRN Reason Stop Dose Admin Acetaminophen 650 mg 09/20/19 14:05 09/23/19 15:20 Tylenol - PO 650 mg Q6H PRN Administration PAIN LEVEL 4 - 6 Acetaminophen 650 mg 09/20/19 14:05 Tylenol - PO Q6H PRN FEVER Al Hydroxide/Mg Hydroxide 30 ml 09/20/19 14:05 Mylanta Oral Suspension - PO Q6H PRN DYSPEPSIA Aripiprazole 5 mg 09/22/19 10:00 09/24/19 10:27 Abilify PO 5 mg DAILY RANJITH Administration Atorvastatin Calcium 10 mg 09/20/19 22:00 09/23/19 22:07 Lipitor - PO 10 mg HS RANJITH Administration Benztropine Mesylate 1 mg 09/22/19 22:00 09/23/19 22:06 Cogentin - PO 1 mg HS RANJITH Administration Bismuth Subsalicylate 524 mg 09/20/19 14:05 09/22/19 10:40 Pepto-Bismol - PO 524 mg Q1H PRN Administration DIARRHEA Chlordiazepoxide HCl 10 mg 09/24/19 05:00 09/24/19 05:52 Librium - PO 09/24/19 17:01 10 mg Q12H RANJITH Administration Chlordiazepoxide HCl 10 mg 09/25/19 05:00 Librium - PO 09/25/19 05:01 ONCE@0500 ONE Clonidine 0.1 mg 09/22/19 10:00 09/24/19 10:27 Catapres - PO Not Given BID RANJITH Escitalopram Oxalate 20 mg 09/22/19 10:00 09/24/19 10:26 Lexapro - PO 20 mg DAILY RANJITH Administration Eucalyptus/Menthol/Phenol/Sorbitol 1 each 09/20/19 14:05 Cepastat Lozenge - MM 09/26/19 14:06 Q4H PRN SORE THROAT Gabapentin 200 mg 09/20/19 15:00 09/24/19 05:53 Neurontin - PO 200 mg TID RANJITH Administration Haloperidol 5 mg 09/22/19 22:00 09/23/19 22:06 Haldol - PO 5 mg HS RANJITH Administration Hydroxyzine Pamoate 50 mg 09/22/19 09:34 Vistaril - PO Q6H PRN ANXIETY Ibuprofen 800 mg 09/23/19 17:00 09/23/19 17:24 Motrin - PO 800 mg Q12H PRN Administration PAIN LEVEL 4 - 6 Levetiracetam 500 mg 09/20/19 22:00 09/24/19 10:27 Keppra - PO 500 mg BID RANJITH Administration Magnesium Citrate 300 ml 09/20/19 14:05 Citroma - PO Q48H PRN CONSTIPATION Magnesium Hydroxide 30 ml 09/20/19 14:05 Milk Of Magnesia - PO PRN PRN CONSTIPATION Melatonin 5 mg 09/20/19 22:00 09/23/19 22:07 Melatonin PO 5 mg HS RANJITH Administration Methadone HCl 5 mg 09/25/19 06:00 Dolophine - PO 09/25/19 06:01 ONCE@0600 ONE Methocarbamol 500 mg 09/20/19 14:05 09/21/19 17:55 Robaxin - PO 09/26/19 14:06 500 mg Q6H PRN Administration MUSCLE SPASMS Nicotine 21 mg 09/20/19 15:30 09/24/19 10:26 Nicoderm Patch - TD 21 mg DAILY RANJITH Administration Nicotine Polacrilex 2 mg 09/20/19 14:05 Nicorette Gum - BUC Q2H PRN NICOTINE REPLACEMENT RX Ondansetron HCl 4 mg 09/20/19 15:15 09/20/19 16:24 Zofran Odt - SL 4 mg TID PRN Administration NAUSEA &/OR VOMITTING Multivit/Folic Acid/Iron 1 tab 09/20/19 14:15 09/24/19 10:26 Vitamins (Sjr) - PO 1 tab DAILY RANJITH Administration Thiamine HCl 100 mg 09/20/19 22:00 09/23/19 22:06 Vitamin B1 - PO 100 mg HS RANJITH Administration Trazodone HCl 100 mg 09/21/19 22:00 09/23/19 22:07 Desyrel - PO 100 mg HS RANJITH Administration Vital Signs Temperature 97.6 F 09/24/19 08:45 Pulse Rate 72 09/24/19 08:45 Respiratory Rate 18 09/24/19 08:45 Blood Pressure 107/81 09/24/19 08:45 O2 Sat by Pulse Oximetry (%) 96 09/24/19 05:45 Assessment: 09/24/19 11:14 28 years old female admitted on 09/20/19 for alcohol and opiate withdrawal treating with librium and methadone detox regiment seen by psychiatrist lee stokes and lexapro history of seizure disorder treated with keppra 1. Alcohol use disorder 2. Opiod use disorder 3. Seizure disorder 4. Substance induced mood disorder 5. PTSD Plan: 1. Librium detox, projected completion tomorrow, may go to [facility] if bed available today 2. Methadone detox 3. Pts COVID was unable to be run: due to the presence of PCR inhibitors, Pt reswabbed by this provider, and specimen given to arterial embalmer Emily. 4. Pt being discharged, will go to for Rehab. OK to transfer without COVID results as pt has been healthy here and no signs suggestive of COVID - Treatment Hospital Course: Detox Protocol Followed, Detoxed Safely, Responded well, Discharged Condition Good, Rehab Referral Accepted Patient has Accepted a Rehab Referral to: [facility] - Medication Discharge Medications: Ambulatory Orders hydrOXYzine HCL [Atarax -] 50 mg PO Q6H PRN #90 tablet 01/22/17 Acetaminophen 650 mg PO Q6H PRN 07/30/18 Clonidine HCl 0.1 mg PO BID 07/30/18 Haloperidol [Haldol -] 5 mg PO DAILY #30 tablet 08/03/18 Simvastatin 10 mg PO HS 01/10/19 Aripiprazole [Abilify -] 5 mg PO DAILY #30 tablet 01/15/19 Atorvastatin Ca [Lipitor] 10 mg PO HS #30 tablet 01/15/19 Escitalopram Oxalate [Lexapro -] 20 mg PO DAILY #30 tablet 01/15/19 Gabapentin [Neurontin -] 200 mg PO TID #90 capsule 01/15/19 levETIRAcetam [Keppra -] 500 mg PO BID #60 tablet 01/15/19 traZODone HCL [Desyrel -] 200 mg PO HS #30 tablet 01/15/19 Mirtazapine [Remeron -] 30 mg PO DAILY 09/08/19
[2019-09-24] MEDS: IBUPROFEN 400 MG TABLET (FP) PO PRN (15:28)
[2019-09-25] MEDS ORDERED: chlordiazePOXIDE HCL 10 MG CAPSULE PO ONE (05:00)
[2019-09-25] MEDS ORDERED: METHADONE HCL 5 MG TABLET (FOR DETOX USE ONLY) PO ONE (06:00)
== END 2019-09-24 15:54 | disposition other institution (70) | DRG 773 ==
LOC: YASAS 11:45 → Y3N 14:53
PROVIDERS: ADMIT Allergy & Immunology; ATTEND Allergy & Immunology
PROC: HZ2ZZZZ Detoxification Services for Substance Abuse Treatment (ICD-10-PCS; principal; 2019-09-20)
DX: F10.230 Alcohol dependence with withdrawal, uncomplicated (principal); F11.23 Opioid dependence with withdrawal; F14.20 Cocaine dependence, uncomplicated; F17.210 Nicotine dependence, cigarettes, uncomplicated; F19.24 Other psychoactive substance dependence with psychoactive substance-induced mood disorder; F25.9 Schizoaffective disorder, unspecified; F43.10 Post-traumatic stress disorder, unspecified; G40.909 Epilepsy, unspecified, not intractable, without status epilepticus; G62.9 Polyneuropathy, unspecified; E87.6 Hypokalemia; E78.2 Mixed hyperlipidemia; M54.5 Low back pain; G89.29 Other chronic pain; K21.9 Gastro-esophageal reflux disease without esophagitis; Z62.810 Personal history of physical and sexual abuse in childhood; Z91.410 Personal history of adult physical and sexual abuse; Z91.018 Allergy to other foods; Z88.8 Allergy status to other drugs, medicaments and biological substances; Z91.19 Patient's noncompliance with other medical treatment and regimen
CPT/HCPCS: 36415; 80053; 81025; 84132; 85027; 86780; 93005; 93010; J0735; Q0162; U0003

== ENCOUNTER 2019-09-24 16:06 | Inpatient (IN) | payer OTHER ==
[2019-09-24] MEDS ORDERED: MAGNESIUM HYDROX 2400MG/30ML ORAL SUSPENSION 30 ML CUP PO PRN (16:40)
[2019-09-24] MEDS ORDERED: MENTHOL/PHENOL 1 EACH UD MM PRN (16:40)
[2019-09-24] MEDS ORDERED: NICOTINE POLACRILEX 2 MG GUM BUC PRN (16:40)
[2019-09-24] MEDS ORDERED: ACETAMINOPHEN 325 MG TABLET (FP) PO PRN (16:40)
[2019-09-24] MEDS ORDERED: LOPERAMIDE HCL 2 MG CAPSULE PO PRN (16:40)
[2019-09-24] MEDS ORDERED: guaiFENesin 200 MG/10 ML 10 ML UNIT-DOSE CUPS PO PRN (16:40)
[2019-09-24] MEDS ORDERED: IBUPROFEN 400 MG TABLET (FP) PO PRN (16:40)
[2019-09-24] MEDS ORDERED: MAGNESIUM CITRATE 300 ML BOTTLE PO PRN (16:40)
[2019-09-24] MEDS ORDERED: MAG HYDROX/AL HYDROX/SIMETH 30 ML UNIT-DOSE CUP PO PRN (16:40)
--- NOTE | 2019-09-24 16:40 | HP ---
[facility] Rehab Assess/Revision - Admission History Admitted to Rehab from: [facility] Date of Admission to Rehab: 09/24/2019 - Findings Detox History & Physical reviewed: Yes Concur with findings: Yes Inpatient Rehab Admission - Rehab Decision to Admit Inpatient rehab admission?: Yes - Initial Determination Are CD services needed?: Yes Free of communicable disease: Yes Not in need of hospitalization: Yes - Rehab Admission Criteria Previous failed treatment: Yes Poor recovery environment: Yes Comorbidities: Yes Lacks judgement: No Patient is meeting Inpatient Rehab admission criteria:: Yes
[2019-09-24 17:44] VITALS: BP 103/60; PULSE 83; TEMP 97.5
--- NOTE | 2019-09-24 18:44 | DS ---
[facility] Rehab Discharge Summary - [facility] Rehab Discharge Summary Admission Date: 09/24/19 Discharge Date: 09/24/19 - History Present History: Alcohol dependence, Cocaine dependence, Opioid dependence - Discharge Physical Exam Vital Signs: Vital Signs Temperature 97.5 F L 09/24/19 15:55 Pulse Rate 83 09/24/19 15:55 Respiratory Rate 18 09/24/19 15:55 Blood Pressure 103/60 09/24/19 15:55 O2 Sat by Pulse Oximetry (%) Pertinent Admission Physical Exam Findings: Patient discharged today and admitted to rehab w/ early remission alcohol, cocaine, opioid use disorder. Patient on NRT. Patient decided to leave and walked off unit before waiting for provider. - Treatment Discharge Condition: Discharge condition good (Patient was on unit less than 3 hours when decided to leave AMA.) Hospital Course: Aborted admission - Medication Discharge Medications: Ambulatory Orders hydrOXYzine HCL [Atarax -] 50 mg PO Q6H PRN #90 tablet 01/22/17 Acetaminophen 650 mg PO Q6H PRN 07/30/18 Clonidine HCl 0.1 mg PO BID 07/30/18 Haloperidol [Haldol -] 5 mg PO DAILY #30 tablet 08/03/18 Simvastatin 10 mg PO HS 01/10/19 Aripiprazole [Abilify -] 5 mg PO DAILY #30 tablet 01/15/19 Atorvastatin Ca [Lipitor] 10 mg PO HS #30 tablet 01/15/19 Escitalopram Oxalate [Lexapro -] 20 mg PO DAILY #30 tablet 01/15/19 Gabapentin [Neurontin -] 200 mg PO TID #90 capsule 01/15/19 levETIRAcetam [Keppra -] 500 mg PO BID #60 tablet 01/15/19 traZODone HCL [Desyrel -] 200 mg PO HS #30 tablet 01/15/19 Mirtazapine [Remeron -] 30 mg PO DAILY 09/08/19 - Medication-Assisted Treatment (MAT) Medication-Assisted Treatment (MAT): No - Discharge Instructions Diet, activity, other medical instructions: Diet: Activity: Other medical instructions: - Diagnosis (1) Alcohol dependence in early full remission Status: Acute (2) Codeine use disorder, moderate, in early remission Status: Acute (3) Cocaine use disorder, moderate, in early remission Status: Acute (4) Nicotine dependence, unspecified, uncomplicated Status: Chronic Qualifiers: Nicotine product type: cigarettes Qualified Code(s): F17.210 - Nicotine dependence, cigarettes, uncomplicated - Follow-up Referral Minutes to complete discharge: 15 - AMA Did Patient Leave Against Medical Advice: Yes Additional Comments: Aborted admission
[2019-09-24] MEDS ORDERED: THIAMINE HCL 100 MG TABLET (FP) PO SCH (22:00)
[2019-09-24] MEDS ORDERED: MELATONIN 5 MG TABLETS PO SCH (22:00)
[2019-09-25] MEDS ORDERED: NICOTINE 21 MG/24 HOURS TOPICAL PATCH TD SCH (10:00)
[2019-09-25] MEDS ORDERED: PRENATAL VITAMINS W/ FOLIC ACID TABLET (FP) PO SCH (10:00)
== END 2019-09-24 18:11 | disposition home or self-care (01) | DRG 772 ==
LOC: YASAS 16:06 → Y3W 16:07
PROVIDERS: ADMIT Allergy & Immunology; ATTEND Allergy & Immunology
PROC: HZ42ZZZ Group Counseling for Substance Abuse Treatment, Cognitive-Behavioral (ICD-10-PCS; principal; 2019-09-24)
DX: F10.20 Alcohol dependence, uncomplicated (principal); F11.20 Opioid dependence, uncomplicated; F14.20 Cocaine dependence, uncomplicated; F17.210 Nicotine dependence, cigarettes, uncomplicated

== ENCOUNTER 2019-10-30 08:47 | Inpatient (IN) | payer OTHER ==
--- NOTE | 2019-10-30 11:54 | BHS.RME ---
Substance Use & Tx History - Substance Use History Heroin Substance amount: 16 bags Frequency of use: Daily Substance route: Injection (ex: intravenous or skin popping) Date of Last Use: 10/30/19 Alcohol Substance amount: 2 litres of vodka Frequency of use: Daily Substance route: Oral Date of Last Use: 10/30/19 Cocaine- Powder Frequency of use: Daily Substance route: Inhalation (ex: sniffing or snorting) Date of Last Use: 10/30/19 - Last Treatment Date of last treatment: [facility] 09/20/19 to 09/24/19 Where was last treatment: Detox Physical/Psych/Mental Status - Behavior Eye Contact: Normal - Cooperativeness Cooperativeness: Cooperative - Thinking Thought Processes: Logical Thought content: Future oriented - Physical Health Problems Is patient presently having any pain?: No Does patient presently have any injuries (include location): No Does patient currently have a fever: No COWS - Scale Resting Pulse: 1= [place] 81-100 Sweatin= Chills/Flushing Restless Observation: 1= Difficult to Sit Still Pupil Size: 1= Pupils >than Normal Bone or Joint Aches: 2= Severe Diffuse Aches Runny Nose/ Eye Tearin= Runny Nose/Eyes GI Upset > 30mins: 3= Vomiting/Diarrhea Tremor Observation: 2= Slight Tremor Visible Yawning Observation: 1= 1-2x During Session Anxiety or Irritability: 2=Irritable/Anxious Goose Flesh Skin: 0=Smooth Skin COWS Score: 16 CIWA Nausea/Vomitin Muscle Tremors: 3 Anxiety: 3 Agitation: 3 Paroxysmal Sweats: 1-Minimal Palms Moist Orientation: 0-Oriented Tacttile Disturbances: 1-Very Mild Itch/Numbness Auditory Disturbances: 0-None Visual Disturbances: 0-None Headache: 2-Mild CIWA-Ar Total Score: 16
--- NOTE | 2019-10-30 12:02 | HP ---
COWS - Scale Resting Pulse: 1= [place] 81-100 Sweatin= Chills/Flushing Restless Observation: 1= Difficult to Sit Still Pupil Size: 1= Pupils >than Normal Bone or Joint Aches: 2= Severe Diffuse Aches Runny Nose/ Eye Tearin= Runny Nose/Eyes GI Upset > 30mins: 3= Vomiting/Diarrhea Tremor Observation: 2= Slight Tremor Visible Yawning Observation: 1= 1-2x During Session Anxiety or Irritability: 2=Irritable/Anxious Goose Flesh Skin: 0=Smooth Skin COWS Score: 16 CIWA Score Nausea/Vomitin Muscle Tremors: 3 Anxiety: 3 Agitation: 3 Paroxysmal Sweats: 1-Minimal Palms Moist Orientation: 0-Oriented Tacttile Disturbances: 1-Very Mild Itch/Numbness Auditory Disturbances: 0-None Visual Disturbances: 0-None Headache: 2-Mild CIWA-Ar Total Score: 16 - Admission Criteria [facility]ASAS Guidelines: Admission for Medically Managed Detox: Requires at least one of the followin. CIWA greater than 12 2. Seizures within the past 24 hours 3. Delirium tremens within the past 24 hours 4. Hallucinations within the past 24 hours 5. Acute intervention needed for co occurring medical disorder 6. Acute intervention needed for co occurring psychiatric disorder 7. Severe withdrawal that cannot be handled at a lower level of care (continued vomiting, continued diarrhea, abnormal vital signs) requiring intravenous medication and/or fluids 8. Admitting History and Physical - Admission Chief Complaint: i am here to get clean History of Present Illness: this 29 years old female with heroin,alcohol and cociane dependence seeking help to stop History Source: Patient Limitations to Obtaining History: No Limitations - Past Medical History Cardiovascular: Yes: HTN, Hyperlipdemia ...LMP: 09/20/19 Psych: Yes: Bipolar, Schizophrenia - Past Surgical History Past Surgical History: Yes: None - Smoking History Smoking history: Current every day smoker Have you smoked in the past 12 months: Yes Aproximately how many cigarettes per day: 40 - Alcohol/Substance Use Hx Alcohol Use: Yes (1 pint of vodka daily) Number of Drinks Daily: 10 (drinks a litre and a half) History of Substance Use: reports: Heroin Date of Last Use: 09/18/19 (OD yesterday) - Social History Usual Living Arrangement: Yes: Other (homeless) ADL: Independent Occupation: Unemployed now History of Recent Travel: No Other Social History: homeless,unemployed,legal issue threatening and trying to joaquin hayleyband Admission ROS S - [facility] Chief Complaint: i need help to stop using heroin,alcohol,cocaine Allergies/Adverse Reactions: Allergies Allergy/AdvReac Type Severity Reaction Status Date / Time penicillin G Allergy Severe Difficulty Verified 10/30/19 13:18 Breathing apple Allergy Unknown Verified 10/30/19 13:18 lemon Allergy Unknown Verified 10/30/19 13:18 raspberry Allergy Unknown Verified 10/30/19 13:18 No Known Drug Allergies Allergy Verified 10/30/19 13:20 History of Present Illness: this 29 years old female with heroin,alcohol and cocaine dependence seeking detox, multtiple admissions in detox,last 09/20/19 to relapsing the same day hyprertension,hypercholesterolemia seizure last 2018 schizophrenia,ptsd, nicotine dependence 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,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,legal 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 longest sobriety 8 months may go to rehab after detox Exam Limitations: No Limitations - Ebola screening Have you traveled outside of the country in the last 21 days: No Have you had contact with anyone from an Ebola affected area: No Have you been sick,other than usual withdrawal symptoms: No Do you have a fever: No - Review of Systems Constitutional: Chills, Loss of Appetite, Malaise, Night Sweats, Changes in sleep EENT: reports: Nose Congestion Respiratory: reports: No Symptoms reported Cardiac: reports: No Symptoms Reported GI: reports: No Symptoms Reported, Nausea, Poor Appetite, Abdominal cramping : reports: No Symptoms Reported Musculoskeletal: reports: Back Pain, Muscle Pain Integumentary: reports: Dryness Neuro: reports: Headache, Tremors Endocrine: reports: No Symptoms Reported Hematology: reports: No Symptoms Reported Psychiatric: reports: No Sypmtoms Reported, Judgement Intact, Mood/Affect Appropiate, Orientated x3, other (schizophrenia) Patient History - Patient Medical History Hx Anemia: Yes Hx Asthma: No Hx Chronic Obstructive Pulmonary Disease (COPD): No Hx Cancer: No Hx Cardiac Disorders: Yes (hyperlipidemia, HTN) Hx Congestive Heart Failure: No Hx Hypertension: Yes Hx Hypercholesterolemia: No Hx Pacemaker: No HX Cerebrovascular Accident: No Hx Seizures: Yes (last 2018) Hx Dementia: No Hx Diabetes: No Hx Gastrointestinal Disorders: No Hx Liver Disease: No Hx Genitourinary Disorders: No Hx Sexually Transmitted Disorders: No Hx Renal Disease (ESRD): No Hx Thyroid Disease: No Hx Human Immunodeficiency Virus (HIV): No (last 09/19 negative) Hx Hepatitis C: No Hx Depression: Yes Hx Suicide Attempt: Yes (9 years ago cutter) Hx Bipolar Disorder: Yes Hx Schizophrenia: Yes Other Medical History: no sucidal,no homicidal - Patient Surgical History Past Surgical History: No Hx Neurologic Surgery: No Hx Cataract Extraction: No Hx Cardiac Surgery: No Hx Lung Surgery: No Hx Breast Surgery: No Hx Breast Biopsy: No Hx Abdominal Surgery: No Hx Appendectomy: No Hx Cholecystectomy: No Hx Genitourinary Surgery: No Hx Section: No Hx Orthopedic Surgery: No Anesthesia Reaction: No - PPD History Previous Implant?: Yes Implanted On Prior [facility] Admission?: Yes Date: 08/03/19 Results: 0 mm PPD to be Administered?: No - Reproductive History Patient is a Female of Child Bearing Age (11 -55 yrs old): Yes Last Menstrual Period: 10/19/19 Patient : No - Smoking Cessation Smoking history: Current every day smoker Have you smoked in the past 12 months: Yes Aproximately how many cigarettes per day: 40 Cigars Per Day: 40 Hx Chewing Tobacco Use: No Initiated information on smoking cessation: Yes 'Breaking Loose' booklet given: 10/30/19 - Substance & Tx. History Hx Alcohol Use: Yes Hx Substance Use: Yes Substance Use Type: Alcohol, Cocaine Hx Substance Use Treatment: Yes ([facility] 09/20/19 to 09/24/19) - Substances abused Heroin Substance route: Injection Frequency: Daily Amount used: 16 bags Age of first use: 25 Date of last use: 10/30/19 Alcohol Substance route: Oral Frequency: Daily Amount used: 2 litre of vodka Age of first use: 10 Date of last use: 10/30/19 Cocaine Substance route: Inhalation Frequency: Daily Amount used: 150$ Age of first use: 18 Date of last use: 10/30/19 Admission Physical Exam BHS - Vital Signs Vital Signs: t97.8,p98,r18,bp 115/77,anastacia 0.000,pulse oximeter 99% - Physical General Appearance: Yes: Moderate Distress, Tremorous, Irritable, Sweating, Anxious HEENTM: Yes: Normal ENT Inspection, YOLANDA, Pharynx Normal Respiratory: Yes: Within Normal Limits, Lungs Clear, Normal Breath Sounds Neck: Yes: Within Normal Limits, Supple, Trachea in good position Breast: Yes: Breast Exam Deferred Cardiology: Yes: Within Normal Limits, Regular Rhythm, Regular Rate, S1, S2 Abdominal: Yes: Within Normal Limits, Normal Bowel Sounds, Non Tender, Flat, Soft Genitourinary: Yes: Within Normal Limits Back: Yes: Muscle Spasm Musculoskeletal: Yes: Back pain, Joint Stiffness, Muscle Pain Extremities: Yes: Within Normal Limits, Normal Range of Motion, Tremors 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 NML intact, Fully Oriented, Alert, Motor Strength 5/5 Integumentary: Yes: Dry, Track Meredith Lymphatic: Yes: Within Normal Limits - Diagnostic (1) Opioid dependence with withdrawal Current Visit: No Status: Acute (2) Alcohol dependence in early full remission Current Visit: No Status: Acute (3) Cocaine use disorder, moderate, in early remission Current Visit: No Status: Acute (4) IVDU (intravenous drug user) Current Visit: No Status: Acute (5) Neuropathy Current Visit: No Status: Chronic (6) Nicotine dependence Current Visit: No Status: Chronic Qualifiers: Nicotine product type: cigarettes Substance use status: uncomplicated Qualified Code(s): F17.210 - Nicotine dependence, cigarettes, uncomplicated (7) PTSD (post-traumatic stress disorder) Current Visit: No Status: Chronic Comment: As per self-report. (8) History of seizures Current Visit: No Status: Resolved Comment: Due To Withdrawal. (9) Bipolar disorder Current Visit: No Status: Ruled-out Cleared for Admission [facility] - Detox or Rehab [facility] Level of Care: Medically Managed Detox Regimen/Protocol: Methadone/Librium Breathalyzer - Breathalyzer Breathalyzer: 0 Urine Drug Screen - Test Device Lot number: [id number] Expiration date: 10/31/20 - Control Is test valid?: Yes - Results Drug screen NEGATIVE: No Urine drug screen results: THC-Marijuana, ARANZA-Cocaine, MTD-Methadone, BZO- Benzodiazepines Inpatient Rehab Admission - Rehab Decision to Admit Inpatient rehab admission?: No
[2019-10-30 13:38] VITALS: BMI 25.8
[2019-10-30] MEDS ORDERED: METHADONE HCL 10 MG TABLET (FOR DETOX USE ONLY) PO ONE (13:57)
[2019-10-30] MEDS ORDERED: ONDANSETRON *ODT* 4 MG TABLET SL ONE (13:57)
[2019-10-30] MEDS ORDERED: MAGNESIUM CITRATE 300 ML BOTTLE PO PRN (13:57)
[2019-10-30] MEDS ORDERED: NICOTINE POLACRILEX 2 MG GUM BUC PRN (13:57)
[2019-10-30] MEDS ORDERED: MENTHOL/PHENOL 1 EACH UD MM PRN (13:57)
[2019-10-30] MEDS ORDERED: MAG HYDROX/AL HYDROX/SIMETH 30 ML UNIT-DOSE CUP PO PRN (13:57)
[2019-10-30] MEDS ORDERED: BISMUTH SUBSALICYLATE 524 MG/30 ML UD PO PRN (13:57)
[2019-10-30] MEDS ORDERED: ACETAMINOPHEN 325 MG TABLET (FP) PO PRN ×2 (13:57)
[2019-10-30] MEDS ORDERED: cloNIDine HCL 0.1 MG TABLET PO PRN (13:57)
[2019-10-30] MEDS ORDERED: MAGNESIUM HYDROX 2400MG/30ML ORAL SUSPENSION 30 ML CUP PO PRN (13:57)
[2019-10-30] MEDS: hydrOXYzine PAMOATE 25 MG CAPSULE (FP) PO SCH ×3 (14:54→22:25)
[2019-10-30] MEDS: chlordiazePOXIDE HCL 25 MG CAPSULE PO PRN (14:54)
[2019-10-30] MEDS: NICOTINE 21 MG/24 HOURS TOPICAL PATCH TD SCH (14:55)
[2019-10-30] MEDS: chlordiazePOXIDE HCL 25 MG CAPSULE PO SCH ×2 (17:30→22:26)
[2019-10-30] MEDS: IBUPROFEN 400 MG TABLET (FP) PO PRN (19:16)
[2019-10-30] MEDS ORDERED: levETIRAcetam 250 MG TABLET PO ONE (21:15)
[2019-10-30] MEDS: ATORVASTATIN CA 10 MG TABLET (FP) PO SCH (22:25)
[2019-10-30] MEDS: MELATONIN 5 MG TABLETS PO SCH (22:26)
[2019-10-30] MEDS: THIAMINE HCL 100 MG TABLET (FP) PO SCH (22:26)
[2019-10-30] MEDS: levETIRAcetam 500 MG TABLET (FP) PO SCH (22:26)
[2019-10-31] MEDS: hydrOXYzine PAMOATE 25 MG CAPSULE (FP) PO SCH ×5 (05:50→22:37)
[2019-10-31] MEDS: chlordiazePOXIDE HCL 25 MG CAPSULE PO SCH ×4 (05:50→22:36)
[2019-10-31] MEDS ORDERED: METHADONE HCL 5 MG TABLET (FOR DETOX USE ONLY) ONE (09:47)
[2019-10-31] MEDS ORDERED: METHADONE HCL 10 MG TABLET (FOR DETOX USE ONLY) ONE (09:48)
[2019-10-31] MEDS ORDERED: levETIRAcetam 250 MG TABLET PO ONE ×2 (09:48→21:40)
[2019-10-31] MEDS ORDERED: METHADONE (DETOX) 20 MG, METHADONE (DETOX) 5 MG PO ONE (10:00)
[2019-10-31 10:09] LABS: HEMATOCRIT 39.5 % (32.4-45.2); HEMOGLOBIN 13.1 GM/dL (10.7-15.3); MCHC 33.1 g/dl (32.0-36.0); MEAN CELL VOLUME 99.7 fl (80-96); PLATELET COUNT 163 K/MM3 (134-434); RBC 3.96 M/mm3 (3.60-5.2); RDW 13.6 % (11.6-15.6); WHITE BLOOD COUNT 7.7 K/mm3 (4.0-10.0)
[2019-10-31 10:16] LABS: ALBUMIN 3.3 g/dl (3.4-5.0); BILIRUBIN,TOTAL 0.3 mg/dL (0.2-1); BLOOD UREA NITROGEN 16.4 mg/dL (7-18); CALCIUM 8.4 mg/dL (8.5-10.1); CREATININE 0.6 mg/dL (0.55-1.3); POTASSIUM 3.7 mmol/L (3.5-5.1); TOT PROT 6.4 g/dl (6.4-8.2)
[2019-10-31] MEDS: PRENATAL VITAMINS W/ FOLIC ACID TABLET (FP) PO SCH (11:02)
[2019-10-31] MEDS: levETIRAcetam 500 MG TABLET (FP) PO SCH ×2 (11:02→22:37)
[2019-10-31] MEDS: NICOTINE 21 MG/24 HOURS TOPICAL PATCH TD SCH (11:03)
[2019-10-31] MEDS: chlordiazePOXIDE HCL 25 MG CAPSULE PO PRN (13:56)
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
[2019-10-31] MEDS: IBUPROFEN 400 MG TABLET (FP) PO PRN (15:40)
[2019-10-31] MEDS: METHOCARBAMOL 500 MG TABLET PO PRN (15:40)
--- NOTE | 2019-10-31 18:09 | PN ---
[facility] CIWA - CIWA Score Nausea/Vomitin-Mild Nausea/No Vomiting Muscle Tremors: 3 Anxiety: 2 Agitation: 2 Paroxysmal Sweats: 3 Orientation: 0-Oriented Tacttile Disturbances: 0-None Auditory Disturbances: 0-None Visual Disturbances: 0-None Headache: 0-None Present CIWA-Ar Total Score: 11 S COWS - Scale Resting Pulse: 0= [place] 80 or Below Sweatin= Chills/Flushing Restless Observation: 0= Sits Still Pupil Size: 0= Normal to Room Light Bone or Joint Aches: 2= Severe Diffuse Aches Runny Nose/ Eye Tearin= Runny Nose/Eyes GI Upset > 30mins: 2= Nausea/Diarrhea Tremor Observation of Outstretched Hands: 2= Slight Tremor Visible Yawning Observation: 0= None Anxiety or Irritability: 2=Irritable/Anxious Goose Flesh Skin: 0=Smooth Skin COWS Score: 11 [facility] Progress Note (SOAP) Subjective: Sweating, tremor Objective: 10/31/19 18:07 Last Vital Signs Temp Pulse Resp BP Pulse Ox 97.8 F 80 18 108/70 99 10/31/19 16:47 10/31/19 16:47 10/31/19 16:47 10/31/19 16:47 10/31/19 05:41 Laboratory Tests 10/30/19 10/31/19 10/31/19 14:00 07:34 07:34 WBC 7.7 RBC 3.96 Hgb 13.1 Hct 39.5 MCV 99.7 H MCH 33.0 MCHC 33.1 RDW 13.6 Plt Count 163 D MPV 10.0 D Sodium Potassium Chloride Carbon Dioxide Anion Gap BUN Creatinine Est GFR (CKD-EPI)AfAm Est GFR (CKD-EPI)NonAf Random Glucose Calcium Total Bilirubin AST ALT Alkaline Phosphatase Total Protein Albumin Syphilis Serology Non-reactive COVID-19 (MAY) Not detected 10/31/19 07:34 WBC RBC Hgb Hct MCV MCH MCHC RDW Plt Count MPV Sodium 141 Potassium 3.7 Chloride 108 H Carbon Dioxide 28 Anion Gap 5 L BUN 16.4 Creatinine 0.6 Est GFR (CKD-EPI)AfAm 144.78 Est GFR (CKD-EPI)NonAf 124.92 Random Glucose 100 Calcium 8.4 L Total Bilirubin 0.3 AST 14 L ALT 22 Alkaline Phosphatase 42 L Total Protein 6.4 Albumin 3.3 L Syphilis Serology COVID-19 (MAY) Labs reviewed Assessment: 10/31/19 18:08 Withdrawal sxs Plan: Continue detox Encourage PO water hydration
[2019-10-31] MEDS: THIAMINE HCL 100 MG TABLET (FP) PO SCH (22:37)
[2019-10-31] MEDS: ATORVASTATIN CA 10 MG TABLET (FP) PO SCH (22:37)
[2019-10-31] MEDS: BENZTROPINE MESYLATE 1 MG TABLET PO SCH (22:37)
[2019-10-31] MEDS: MELATONIN 5 MG TABLETS PO SCH (22:37)
[2019-10-31] MEDS: traZODone HCL 50 MG TABLET (FP) PO SCH (22:37)
[2019-10-31] MEDS: HALOPERIDOL 5 MG TABLET PO SCH (22:37)
[2019-11-01] MEDS: chlordiazePOXIDE HCL 25 MG CAPSULE PO SCH ×4 (05:36→22:28)
[2019-11-01] MEDS: hydrOXYzine PAMOATE 25 MG CAPSULE (FP) PO SCH (05:36)
[2019-11-01] MEDS ORDERED: hydrOXYzine PAMOATE 25 MG CAPSULE (FP) PO PRN (08:47)
[2019-11-01] MEDS ORDERED: METHADONE HCL 10 MG TABLET (FOR DETOX USE ONLY) PO ONE (10:00)
[2019-11-01] MEDS: NICOTINE 21 MG/24 HOURS TOPICAL PATCH TD SCH (10:29)
[2019-11-01] MEDS: PRENATAL VITAMINS W/ FOLIC ACID TABLET (FP) PO SCH (10:30)
[2019-11-01] MEDS: levETIRAcetam 500 MG TABLET (FP) PO SCH ×2 (10:30→22:28)
[2019-11-01] MEDS: ARIPiprazole 5 MG TABLET PO SCH (10:30)
[2019-11-01] MEDS: ESCITALOPRAM OXALATE 20 MG TABLET PO SCH (10:30)
--- NOTE | 2019-11-01 11:08 | PN ---
[facility] CIWA - CIWA Score Nausea/Vomitin-No Nausea/No Vomiting Muscle Tremors: 3 Anxiety: 2 Agitation: 2 Paroxysmal Sweats: 2 Orientation: 0-Oriented Tacttile Disturbances: 0-None Auditory Disturbances: 0-None Visual Disturbances: 0-None Headache: 0-None Present CIWA-Ar Total Score: 9 [facility] COWS - Scale Resting Pulse: 1= [place] 81-100 Sweatin= Chills/Flushing Restless Observation: 1= Difficult to Sit Still Pupil Size: 0= Normal to Room Light Bone or Joint Aches: 1= Mild Discomfort Runny Nose/ Eye Tearin= Nasal Congestion GI Upset > 30mins: 0= None Tremor Observation of Outstretched Hands: 1= Tremor [place], Not Seen Yawning Observation: 1= 1-2x During Session Anxiety or Irritability: 2=Irritable/Anxious Goose Flesh Skin: 0=Smooth Skin COWS Score: 9 [facility] Progress Note (SOAP) Subjective: sweats shakes body aches interrupted sleep agitation restless nausea Objective: 11/01/19 11:07 Vital Signs Temperature 98.7 F 11/01/19 09:08 Pulse Rate 81 11/01/19 09:08 Respiratory Rate 20 11/01/19 09:08 Blood Pressure 123/70 11/01/19 09:08 O2 Sat by Pulse Oximetry (%) 97 11/01/19 05:30 Laboratory Tests 10/30/19 10/30/19 10/31/19 14:00 15:18 07:34 WBC RBC Hgb Hct MCV MCH MCHC RDW Plt Count MPV Sodium Potassium Chloride Carbon Dioxide Anion Gap BUN Creatinine Est GFR (CKD-EPI)AfAm Est GFR (CKD-EPI)NonAf Random Glucose Calcium Total Bilirubin AST ALT Alkaline Phosphatase Total Protein Albumin POC Urine HCG, Qual Negative Syphilis Serology Non-reactive COVID-19 (MAY) Not detected 10/31/19 10/31/19 07:34 07:34 WBC 7.7 RBC 3.96 Hgb 13.1 Hct 39.5 MCV 99.7 H MCH 33.0 MCHC 33.1 RDW 13.6 Plt Count 163 D MPV 10.0 D Sodium 141 Potassium 3.7 Chloride 108 H Carbon Dioxide 28 Anion Gap 5 L BUN 16.4 Creatinine 0.6 Est GFR (CKD-EPI)AfAm 144.78 Est GFR (CKD-EPI)NonAf 124.92 Random Glucose 100 Calcium 8.4 L Total Bilirubin 0.3 AST 14 L ALT 22 Alkaline Phosphatase 42 L Total Protein 6.4 Albumin 3.3 L POC Urine HCG, Qual Syphilis Serology COVID-19 (MAY) labs noted aaox3 ambulating no acute distress Assessment: 11/01/19 11:07 withdrawals Plan: continue detox increase fluids
[2019-11-01] MEDS: HALOPERIDOL 5 MG TABLET PO SCH (22:28)
[2019-11-01] MEDS: ATORVASTATIN CA 10 MG TABLET (FP) PO SCH (22:28)
[2019-11-01] MEDS: BENZTROPINE MESYLATE 1 MG TABLET PO SCH (22:28)
[2019-11-01] MEDS: traZODone HCL 50 MG TABLET (FP) PO SCH (22:28)
[2019-11-01] MEDS: THIAMINE HCL 100 MG TABLET (FP) PO SCH (22:33)
[2019-11-01] MEDS: MELATONIN 5 MG TABLETS PO SCH (22:33)
[2019-11-02] MEDS ORDERED: chlordiazePOXIDE HCL 10 MG CAPSULE PO PRN
[2019-11-02] MEDS: chlordiazePOXIDE HCL 10 MG CAPSULE PO SCH ×4 (06:01→23:34)
[2019-11-02] MEDS ORDERED: METHADONE HCL 10 MG TABLET (FOR DETOX USE ONLY) ONE (09:30)
[2019-11-02] MEDS ORDERED: METHADONE HCL 5 MG TABLET (FOR DETOX USE ONLY) ONE (09:30)
[2019-11-02] MEDS ORDERED: METHADONE (DETOX) 10 MG, METHADONE (DETOX) 5 MG PO ONE (10:00)
[2019-11-02] MEDS: PRENATAL VITAMINS W/ FOLIC ACID TABLET (FP) PO SCH (10:10)
[2019-11-02] MEDS: NICOTINE 21 MG/24 HOURS TOPICAL PATCH TD SCH (10:10)
[2019-11-02] MEDS: levETIRAcetam 500 MG TABLET (FP) PO SCH ×2 (10:11→22:43)
[2019-11-02] MEDS: ARIPiprazole 5 MG TABLET PO SCH (10:13)
[2019-11-02] MEDS: ESCITALOPRAM OXALATE 20 MG TABLET PO SCH (10:13)
--- NOTE | 2019-11-02 11:00 | PN ---
[facility] CIWA - CIWA Score Nausea/Vomitin-No Nausea/No Vomiting Muscle Tremors: 2 Anxiety: 2 Agitation: 2 Paroxysmal Sweats: 2 Orientation: 0-Oriented Tacttile Disturbances: 0-None Auditory Disturbances: 0-None Visual Disturbances: 0-None Headache: 0-None Present CIWA-Ar Total Score: 8 [facility] COWS - Scale Resting Pulse: 0= [place] 80 or Below Sweatin= Chills/Flushing Restless Observation: 1= Difficult to Sit Still Pupil Size: 0= Normal to Room Light Bone or Joint Aches: 1= Mild Discomfort Runny Nose/ Eye Tearin= Nasal Congestion GI Upset > 30mins: 0= None Tremor Observation of Outstretched Hands: 1= Tremor [place], Not Seen Yawning Observation: 1= 1-2x During Session Anxiety or Irritability: 2=Irritable/Anxious Goose Flesh Skin: 0=Smooth Skin COWS Score: 8 [facility] Progress Note (SOAP) Subjective: sweats shakes interrupted sleep agitation restless irritable Objective: 11/02/19 10:59 Vital Signs Temperature 97.3 F L 11/02/19 08:54 Pulse Rate 72 11/02/19 08:54 Respiratory Rate 18 11/02/19 08:54 Blood Pressure 117/66 11/02/19 08:54 O2 Sat by Pulse Oximetry (%) 99 11/02/19 07:14 Laboratory Tests 10/30/19 10/30/19 10/31/19 14:00 15:18 07:34 WBC RBC Hgb Hct MCV MCH MCHC RDW Plt Count MPV Sodium Potassium Chloride Carbon Dioxide Anion Gap BUN Creatinine Est GFR (CKD-EPI)AfAm Est GFR (CKD-EPI)NonAf Random Glucose Calcium Total Bilirubin AST ALT Alkaline Phosphatase Total Protein Albumin POC Urine HCG, Qual Negative Syphilis Serology Non-reactive COVID-19 (MAY) Not detected 10/31/19 10/31/19 07:34 07:34 WBC 7.7 RBC 3.96 Hgb 13.1 Hct 39.5 MCV 99.7 H MCH 33.0 MCHC 33.1 RDW 13.6 Plt Count 163 D MPV 10.0 D Sodium 141 Potassium 3.7 Chloride 108 H Carbon Dioxide 28 Anion Gap 5 L BUN 16.4 Creatinine 0.6 Est GFR (CKD-EPI)AfAm 144.78 Est GFR (CKD-EPI)NonAf 124.92 Random Glucose 100 Calcium 8.4 L Total Bilirubin 0.3 AST 14 L ALT 22 Alkaline Phosphatase 42 L Total Protein 6.4 Albumin 3.3 L POC Urine HCG, Qual Syphilis Serology COVID-19 (MAY) labs noted aaox3 ambulating no acute distress Assessment: 11/02/19 11:00 withdrawals Plan: continue detox increase fluids
[2019-11-02] MEDS: METHOCARBAMOL 500 MG TABLET PO PRN (14:29)
[2019-11-02] MEDS ORDERED: levETIRAcetam 250 MG TABLET PO ONE (20:46)
[2019-11-02] MEDS: BENZTROPINE MESYLATE 1 MG TABLET PO SCH (22:39)
[2019-11-02] MEDS: HALOPERIDOL 5 MG TABLET PO SCH (22:40)
[2019-11-02] MEDS: MELATONIN 5 MG TABLETS PO SCH (22:40)
[2019-11-02] MEDS: THIAMINE HCL 100 MG TABLET (FP) PO SCH (22:40)
[2019-11-02] MEDS: traZODone HCL 50 MG TABLET (FP) PO SCH (22:40)
[2019-11-02] MEDS: ATORVASTATIN CA 10 MG TABLET (FP) PO SCH (22:40)
[2019-11-03] MEDS: chlordiazePOXIDE HCL 10 MG CAPSULE PO SCH ×2 (05:34→18:56)
[2019-11-03] MEDS ORDERED: METHADONE HCL 10 MG TABLET (FOR DETOX USE ONLY) PO ONE (10:00)
[2019-11-03] MEDS: NICOTINE 21 MG/24 HOURS TOPICAL PATCH TD SCH (10:22)
[2019-11-03] MEDS: levETIRAcetam 500 MG TABLET (FP) PO SCH (10:22)
[2019-11-03] MEDS: ARIPiprazole 5 MG TABLET PO SCH (10:22)
[2019-11-03] MEDS: PRENATAL VITAMINS W/ FOLIC ACID TABLET (FP) PO SCH (10:23)
[2019-11-03] MEDS: ESCITALOPRAM OXALATE 20 MG TABLET PO SCH (10:23)
--- NOTE | 2019-11-03 11:46 | PN ---
[facility] CIWA - CIWA Score Nausea/Vomitin-No Nausea/No Vomiting Muscle Tremors: 1-None Visible, but [place] Anxiety: 1-Mildly Anxious Agitation: 1-Slight > Activity Paroxysmal Sweats: No Perspiration Orientation: 0-Oriented Tacttile Disturbances: 0-None Auditory Disturbances: 0-None Visual Disturbances: 0-None Headache: 0-None Present CIWA-Ar Total Score: 3 S COWS - Scale Resting Pulse: 0= IA 80 or Below Sweatin= No chills or Flushing Restless Observation: 1= Difficult to Sit Still Pupil Size: 0= Normal to Room Light Bone or Joint Aches: 1= Mild Discomfort Runny Nose/ Eye Tearin= None GI Upset > 30mins: 0= None Tremor Observation of Outstretched Hands: 0= None Yawning Observation: 1= 1-2x During Session Anxiety or Irritability: 1=Feels Anxious/Irritable Goose Flesh Skin: 0=Smooth Skin COWS Score: 4 [facility] Progress Note (SOAP) Subjective: sweats body aches otherwise feeling better Objective: 11/03/19 11:45 Vital Signs Temperature 98.4 F 11/03/19 08:49 Pulse Rate 78 11/03/19 08:49 Respiratory Rate 19 11/03/19 08:49 Blood Pressure 123/73 11/03/19 08:49 O2 Sat by Pulse Oximetry (%) 99 11/03/19 08:49 aaox3 ambulating no acute distress Assessment: 11/03/19 11:46 mild withdrawals Plan: continue detox d/c in am
[2019-11-03 19:31] VITALS: BP 118/77; PULSE 85; TEMP 100
--- NOTE | 2019-11-03 19:36 | DS ---
[facility] Detox Discharge Summary Admission Date: 10/30/19 Discharge Date: 11/03/19 - History Present History: Alcohol Dependence, Cocaine Dependence, Opioid Dependence Additional Comments: client requesting to leave this evening vs am dc for persona reasons. - Physical Exam Results Vital Signs: Vital Signs Temperature 100 F H 11/03/19 19:30 Pulse Rate 85 11/03/19 19:30 Respiratory Rate 16 11/03/19 19:30 Blood Pressure 118/77 11/03/19 19:30 O2 Sat by Pulse Oximetry (%) 100 11/03/19 19:30 - Treatment Hospital Course: Detox Protocol Followed, Detoxed Safely, Responded well, Discharged Condition Good - Medication Discharge Medications: Ambulatory Orders hydrOXYzine HCL [Atarax -] 50 mg PO Q6H PRN #90 tablet 01/22/17 Acetaminophen 650 mg PO Q6H PRN 07/30/18 Clonidine HCl 0.1 mg PO BID 07/30/18 Haloperidol [Haldol -] 5 mg PO DAILY #30 tablet 08/03/18 Simvastatin 10 mg PO HS 01/10/19 Aripiprazole [Abilify -] 5 mg PO DAILY #30 tablet 01/15/19 Atorvastatin Ca [Lipitor] 10 mg PO HS #30 tablet 01/15/19 Escitalopram Oxalate [Lexapro -] 20 mg PO DAILY #30 tablet 01/15/19 Gabapentin [Neurontin -] 200 mg PO TID #90 capsule 01/15/19 levETIRAcetam [Keppra -] 500 mg PO BID #60 tablet 01/15/19 traZODone HCL [Desyrel -] 200 mg PO HS #30 tablet 01/15/19 Mirtazapine [Remeron -] 30 mg PO DAILY 09/08/19 - AMA Did Patient Leave Against Medical Advice: No
[2019-11-04] MEDS ORDERED: chlordiazePOXIDE HCL 10 MG CAPSULE PO ONE (05:00)
[2019-11-04] MEDS ORDERED: METHADONE HCL 5 MG TABLET (FOR DETOX USE ONLY) PO ONE (06:00)
== END 2019-11-03 19:50 | disposition home or self-care (01) | DRG 773 ==
LOC: YASAS 08:47 → Y6N 13:28
PROVIDERS: ADMIT Allergy & Immunology; ATTEND Allergy & Immunology
PROC: HZ2ZZZZ Detoxification Services for Substance Abuse Treatment (ICD-10-PCS; principal; 2019-10-30)
DX: F10.230 Alcohol dependence with withdrawal, uncomplicated (principal); F11.23 Opioid dependence with withdrawal; F14.20 Cocaine dependence, uncomplicated; F17.210 Nicotine dependence, cigarettes, uncomplicated; F19.24 Other psychoactive substance dependence with psychoactive substance-induced mood disorder; F20.9 Schizophrenia, unspecified; F43.10 Post-traumatic stress disorder, unspecified; I10 Essential (primary) hypertension; K21.9 Gastro-esophageal reflux disease without esophagitis; E78.5 Hyperlipidemia, unspecified; R73.03 Prediabetes; G40.909 Epilepsy, unspecified, not intractable, without status epilepticus; Z91.410 Personal history of adult physical and sexual abuse; Z86.69 Personal history of other diseases of the nervous system and sense organs; Z91.5 Personal history of self-harm; Z88.0 Allergy status to penicillin; Z56.0 Unemployment, unspecified; Z59.0 Homelessness; Z91.018 Allergy to other foods
CPT/HCPCS: 36415; 80053; 81025; 85027; 86780; Q0162; U0003